=== PATIENT | female | born 1965 | race Caucasian/White ===

== ENCOUNTER 2020-08-23 10:56 | Outpatient (CLI) | payer BC, SELFPAY ==
--- NOTE | 2020-08-28 12:26 | WPDHOLTEREM ---
Holter/Event Monitor Holter/Event Monitor Date of procedure: 08/23/20 Procedure Type: 48 hour holter monitor Indications: Palpitations Conclusion: 1. 48 hour holter monitor on 08/23/20. 2. Underlying rhythm is sinus rhythm. HR range 44-135 bpm; average HR 71 bpm. 3. There are 16 premature supraventricular complexes. No supraventricular tachycardia. 4. There are 6 premature ventricular complexes. No ventricular tachycardia. 5. No sinoatrial or atrioventricular blocks. No significant pauses greater than 2 seconds. 6. Patient reports symptoms of chest pressure, flutters which demonstrate sinus rhythm, HR range 61-105 bpm.
== END 2020-08-23 10:57 | disposition home or self-care (01) ==
LOC: ANHCARD 10:57
PROVIDERS: PCP Internal Medicine; Visit Provider Internal Medicine
DX: R00.2 Palpitations (principal)
CPT/HCPCS: 93225; 93226

== ENCOUNTER 2020-09-11 06:45 | Outpatient (NON) | payer BC, SELFPAY ==
[2020-09-11 19:00] LABS: SARS-CoV-2 RNA PCR Negative
== END 2020-09-11 06:46 ==
PROVIDERS: PCP Internal Medicine; Visit Provider Internal Medicine
DX: Z20.828 Contact with and (suspected) exposure to other viral communicable diseases (principal); R68.89 Other general symptoms and signs
CPT/HCPCS: 87635; C9803; U0003

== ENCOUNTER 2020-09-26 08:32 | Outpatient (CLI) | payer BC, SELFPAY ==
--- NOTE | 2020-09-26 09:01 | EST_ITS ---
Patient Info Name: Joann Streeter Age: 54 years : 1965 Gender: Female Ht: 65 in Wt: 221 lbs BSA: 2.19 m2 HR: 74 bpm BP: 128 / 74 mmHg Heart Rhythm: Sinus Rhythm Exam Date: 09/26/2020 9:16 AM Exam Location: [facility] Stress Patient Status: Outpatient Admit Date: 09/26/2020 Staff Ordering Physician: Ciera Talavera Attending Provider: Ciera Talavera Exercise Technologist: Nilson Dominguez RDCS, RT Exercise Physician: Lc Hernandez DO Exam Type: CA stress test treadmill Study Info Indications R00.2 - Palpitations A treadmill exercise stress test was performed. Summary 1. 1. Negative Oscar exercise stress test for ischemic ST changes by ECG criteria. 2. 2. Good functional capacity, achieving 8 METs of workload. 3. 3. Frequent ventricular ectopies at peak exercise. 4. 4. Appropriate HR response to exercise. 5. 5. Appropriate HR recovery at 1 minute post exercise. 6. 6. No imaging with stress testing. 7. 7. Patient informed of the above results. Protocol: Oscar Stress ECG Details Stage: REST Duration (min): 1 min : 2 sec Speed (mph): 0.0 Grade (%): 0 HR (bpm): 77 SBP (mmHg): 128 DBP (mmHg): 72 METS: --- Stage: REST Duration (min): 2 min : 29 sec Speed (mph): 0.0 Grade (%): 0 HR (bpm): 70 SBP (mmHg): 128 DBP (mmHg): 72 METS: --- Stage: STAGE 1 Duration (min): 1 min : 0 sec Speed (mph): 1.7 Grade (%): 10 HR (bpm): 115 SBP (mmHg): 128 DBP (mmHg): 72 METS: --- Stage: STAGE 1 Duration (min): 2 min : 0 sec Speed (mph): 1.7 Grade (%): 10 HR (bpm): 130 SBP (mmHg): 128 DBP (mmHg): 72 METS: --- Stage: STAGE 1 Duration (min): 3 min : 0 sec Speed (mph): 1.7 Grade (%): 10 HR (bpm): 129 SBP (mmHg): 201 DBP (mmHg): 58 METS: --- Stage: STAGE 2 Duration (min): 1 min : 0 sec Speed (mph): 2.5 Grade (%): 12 HR (bpm): 135 SBP (mmHg): 201 DBP (mmHg): 58 METS: --- Stage: STAGE 2 Duration (min): 2 min : 0 sec Speed (mph): 2.5 Grade (%): 12 HR (bpm): 138 SBP (mmHg): 189 DBP (mmHg): 61 METS: --- Stage: STAGE 2 Duration (min): 3 min : 0 sec Speed (mph): 2.5 Grade (%): 12 HR (bpm): 143 SBP (mmHg): 189 DBP (mmHg): 61 METS: --- Stage: STAGE 3 Duration (min): 0 min : 40 sec Speed (mph): 3.4 Grade (%): 14 HR (bpm): 148 SBP (mmHg): 189 DBP (mmHg): 61 METS: --- Stage: RECOVERY Duration (min): 0 min : 19 sec Speed (mph): 1.5 Grade (%): 0 HR (bpm): 146 SBP (mmHg): 214 DBP (mmHg): 59 METS: --- Stage: RECOVERY Duration (min): 1 min : 19 sec Speed (mph): 0.0 Grade (%): 0 HR (bpm): 121 SBP (mmHg): 214 DBP (mmHg): 59 METS: --- Stage: RECOVERY Duration (min): 2 min : 19 sec Speed (mph): 0.0 Grade (%): 0 HR (bpm): 106 SBP (mmHg): 214
== END 2020-09-26 08:33 | disposition home or self-care (01) ==
PROVIDERS: PCP Internal Medicine; Visit Provider Nurse Practitioner
DX: R00.2 Palpitations (principal)
CPT/HCPCS: 93017

== ENCOUNTER 2020-10-22 08:48 | Outpatient (CLI) | payer BC, SELFPAY ==
--- NOTE | 2020-11-27 11:06 | WPDHOMESLEEP ---
Sleep Study - Home Unattended Date of Study: 10/22/20 Ordering Provider: Chester Renee DO Interpreting Physician: Josette Mcclure MD Home Sleep Study Type: Apnea Link Air Height: 1.65 m Weight: 90.718 kg Body Mass Index: 33.3 Neck Circumference (inches): 15.5 [place]: 14 Reason for Sleep Study sleep apnea over 10 years on treatment, increasing symptoms Sleep History Joann Streeter is a 55 year old female with a history of sleep apnea for 10 years. She has been on treatment with increasing symptoms [id number] non-refreshing sleep and daytime fatigue. She has difficulty falling asleep at night, wakes up throughout the night, wakes up feeling tired and has excessive daytime sleepiness. She frequently snores, and it is frequently loud enough that others complain about it. She occasionally awakens from sleep feeling short of breath, and occasionally awakens from sleep with heartburn, belching, or coughing. she frequently has trouble sleeping with a cold. she rarely awakens from sleep gasping for breath. She occasionally has breathing problems at night reported to her by others. She frequently sweats excessively at night. She occasionally notices her heart pounding or beating irregularly at night and occasionally fall asleep during the day. She rarely falls asleep involuntarily and never while driving. She does not fall asleep during physical effort. She does not have loss of muscle tone with strong emotion. She occasionally has daytime difficulties due to excessive sleepiness. 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 She does not feel paralyzed on waking or falling asleep. She frequently has vivid dreamlike scenes upon awakening or falling asleep. She rarely is afraid to go to sleep. She occasionally has nightmares, frequently remembers her dreams. She constantly has racing thoughts. She frequently has feelings of sadness, depression and anxiety. She occasionally has muscular tension. She frequently notices parts of her body jerking, she frequently kicks during the night and frequently has crawling and aching feelings in her legs. She frequently has leg pain during the night. She frequently has morning jaw pain. CO kg grind her teeth during sleep. The patient has bothered by pain during the day. She frequently is awakened by pain during the night. She occasionally wakes up feeling stiff in the morning with sore achy muscles and pain in the neck and spine joints. has nightmares, fatigue, dizziness, memory problems, insomnia and concentration difficulties. She also has palpitations and occasional morning headaches. Normal bedtime is 10:00 p.m. falling asleep within 15-30 minutes. She wakes up 5 times at night. These awakenings last anywhere between 10 and 30 minutes. She will try to go back to sleep, sometimes gets up and moves around. She wakes in the morning between 6:00 - 7:00 a.m.. She estimates 6 hours of sleep at night. On the weekends, her schedule is similar. She has no energy. Her CPAP mask is not comfortable. She takes naps in the early afternoon or evening if she is able to do so. She does not feel refreshed after a short 10 or 15 minute nap. She is usually drowsy in the morning for 3 hours or longer. She feels better in the afternoon compared to other times of day. Habits: tobacco 1 pack per day. Caffeine daily. No alcohol or recreational drugs. [facility] Past Medical History Medical History (Updated 11/27/20 @ 11:54 by Josette Mcclure MD) Abnormal glucose Bilateral carpal tunnel syndrome Depression Dizziness Herpes History of colonic polyps Hypotonicity Lumbago Overactive bladder RLS (restless legs syndrome) Family History Family History Father Family history of diabetes mellitus in first degree relative, Onset Age: 70 Social History Social History Smoking packs per day: 1 Smoking cigarettes per day:
[2020-11-28 11:30] VITALS: BMI 33.3
== END 2020-10-22 08:49 | disposition home or self-care (01) ==
LOC: ANHCSM 08:49
PROVIDERS: PCP Internal Medicine; Visit Provider Internal Medicine
DX: G47.33 Obstructive sleep apnea (adult) (pediatric) (principal); E66.9 Obesity, unspecified; Z68.33 Body mass index [BMI] 33.0-33.9, adult; G25.81 Restless legs syndrome; Z79.899 Other long term (current) drug therapy
CPT/HCPCS: 95806

== ENCOUNTER → 2021-01-21 00:19 | Outpatient (CLI) | payer BC, SELFPAY ==
[2021-01-21 19:33] LABS: SARS-CoV-2 RNA PCR Negative
== END ==
PROVIDERS: PCP Internal Medicine; Visit Provider Internal Medicine Critical Care Medicine
DX: Z01.812 Encounter for preprocedural laboratory examination (principal); Z20.822 Contact with and (suspected) exposure to COVID-19
CPT/HCPCS: C9803; U0003; U0005

== ENCOUNTER 2021-01-23 14:02 | Outpatient (CLI) | payer BC, SELFPAY ==
--- NOTE | 2021-02-06 11:21 | WPDSLEEPSTUD ---
Sleep Study Date of Study: 01/23/21 Ordering Provider: Chester Renee DO Interpreting Physician: Josette Mcclure MD Sleep Study Type: CPAP Titration Height: 1.65 m Weight: 90.718 kg Body Mass Index: 33.3 Neck Circumference (inches): 16 [place]: 14 Reason for Sleep Study Home sleep test on October 22, 2020 AHI 15, desaturation 84% 4 minutes spent below 88%. Sleep History Joann Streeter is a 55 year old female with a history of sleep apnea for 10 years. She has been on treatment with increasing symptoms including non-refreshing sleep and daytime fatigue. She has difficulty falling asleep at night, wakes up throughout the night, wakes up feeling tired and has excessive daytime sleepiness. She frequently snores, and it is frequently loud enough that others complain about it. She occasionally awakens from sleep feeling short of breath, and occasionally awakens from sleep with heartburn, belching, or coughing. she frequently has trouble sleeping with a cold. she rarely awakens from sleep gasping for breath. She occasionally has breathing problems at night reported to her by others. She frequently sweats excessively at night. She occasionally notices her heart pounding or beating irregularly at night and occasionally fall asleep during the day. She rarely falls asleep involuntarily and never while driving. She does not fall asleep during physical effort. She does not have loss of muscle tone with strong emotion. She occasionally has daytime difficulties due to excessive sleepiness. 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 She does not feel paralyzed on waking or falling asleep. She frequently has vivid dreamlike scenes upon awakening or falling asleep. She rarely is afraid to go to sleep. She occasionally has nightmares, frequently remembers her dreams. She constantly has racing thoughts. She frequently has feelings of sadness, depression and anxiety. She occasionally has muscular tension. She frequently notices parts of her body jerking, she frequently kicks during the night and frequently has crawling and aching feelings in her legs. She frequently has leg pain during the night. She frequently has morning jaw pain. CO kg grind her teeth during sleep. The patient has bothered by pain during the day. She frequently is awakened by pain during the night. She occasionally wakes up feeling stiff in the morning with sore achy muscles and pain in the neck and spine joints. has nightmares, fatigue, dizziness, memory problems, insomnia and concentration difficulties. She also has palpitations and occasional morning headaches. Normal bedtime is 10:00 p.m. falling asleep within 15-30 minutes. She wakes up 5 times at night. These awakenings last anywhere between 10 and 30 minutes. She will try to go back to sleep, sometimes gets up and moves around. She wakes in the morning between 6:00 - 7:00 a.m.. She estimates 6 hours of sleep at night. On the weekends, her schedule is similar. She has no energy. Her CPAP mask is not comfortable. She takes naps in the early afternoon or evening if she is able to do so. She does not feel refreshed after a short 10 or 15 minute nap. She is usually drowsy in the morning for 3 hours or longer. She feels better in the afternoon compared to other times of day. Habits: tobacco 1 pack per day. Caffeine daily. No alcohol or recreational drugs. [facility] Past Medical History Medical History Abnormal glucose Bilateral carpal tunnel syndrome Depression Dizziness Herpes History of colonic polyps Hypotonicity Lumbago Overactive bladder RLS (restless legs syndrome) Family History Family History Father Family history of diabetes mellitus in first degree relative, Onset Age: 70 Social History Social History Smoking packs per day: 1 Smoking cigar
[2021-02-06 11:44] VITALS: BMI 33.3
== END 2021-01-23 14:03 ==
LOC: ANHCSM 02-11 14:02
PROVIDERS: PCP Internal Medicine; Visit Provider Internal Medicine
DX: G47.33 Obstructive sleep apnea (adult) (pediatric) (principal); Z68.33 Body mass index [BMI] 33.0-33.9, adult
CPT/HCPCS: 95811

== ENCOUNTER 2021-02-11 09:49 | Outpatient (CLI) | payer BC, SELFPAY | END 2021-02-11 09:50 | disposition home or self-care (01) | LOC: ANHCOVIDVC 09:49 | PROVIDERS: PCP Internal Medicine | DX: Z23 Encounter for immunization (principal) | CPT/HCPCS: 0001A; 91300 ==

== ENCOUNTER 2021-03-04 09:49 | Outpatient (CLI) | payer BC, SELFPAY | END 2021-03-04 09:50 | disposition home or self-care (01) | LOC: ANHCOVIDVC 09:49 | PROVIDERS: PCP Internal Medicine | DX: Z23 Encounter for immunization (principal) | CPT/HCPCS: 0002A; 91300 ==

== ENCOUNTER → 2021-05-14 16:29 | Outpatient (CLI) | payer BC, SELFPAY ==
--- NOTE | ~2021-05-14 | MM_ITS ---
EXAMINATION: MM screening daniel BI w [facility] HISTORY: Screening mammogram TECHNIQUE: Craniocaudal and mediolateral oblique 3-D tomosynthesis images were obtained and synthetic 2-D images were generated. CAD analysis was submitted and interpreted. COMPARISON: 02/13/2017 BREAST PARENCHYMAL COMPOSITION: There are scattered areas of fibroglandular density. FINDINGS: There is no evidence of suspicious mass, calcification, or architectural distortion to sugg est malignancy in either breast. There has been no suspicious interval change. IMPRESSION: 1. No mammographic evidence of malignancy. 2. Recommend routine screening mammography in one year. BI-RADS Category 1: Negative Reviewed, dictated and finalized at location A.
== END ==
PROVIDERS: PCP Internal Medicine
DX: Z12.31 Encounter for screening mammogram for malignant neoplasm of breast (principal)
CPT/HCPCS: 77063; 77067

== ENCOUNTER 2022-02-05 18:20 | Emergency (ER) | payer BC, SELFPAY ==
--- NOTE | 2022-02-05 18:38 | ED.URI ---
HPI - URI/Sore Throat General Chief Complaint: Upper Respiratory Infection Stated Complaint: cough,chest congestion,runny nose Time Seen by Provider: 02/05/22 19:04 Source: patient and RN notes reviewed Mode of arrival: ambulatory Limitations: no limitations History of Present Illness HPI Narrative: 56-year-old female presents concern for 6-day history of cough, chest congestion, nasal congestion, rhinorrhea, ear fullness, increased fatigue. Reports symptoms have worsened. Reports her had similar symptoms. She denies fever. Reports body aches, chills, sweats. Denies shortness of breath. MD elicited complaint: cough, rhinorrhea and nasal congestion Related Data Home Medications Medication Instructions Recorded Confirmed ropinirole 3 mg PO DAILY 02/05/22 02/05/22 vortioxetine [Trintellix] 20 mg PO DAILY 02/05/22 02/05/22 Allergies Allergy/AdvReac Type Severity Reaction Status Date / Time No Known Allergies Allergy Verified 02/05/22 19:10 Review of Systems Review of Systems: CONSTITUTIONAL: Reports malaise, chills, sweats, fatigue. Denies fever. EYES: Denies visual changes, redness, or discharge. ENT: Reports rhinorrhea, congestion, sinus pain, otalgia. Denies sore throat. CARDIOVASCULAR: Denies chest pain, palpitations, or edema. RESPIRATORY: Reports cough. Denies dyspnea. GASTROINTESTINAL: Denies abdominal pain, vomiting, diarrhea. Reports nausea SKIN: Denies rash or itching. MUSCULOSKELETAL: Reports myalgia. NEUROLOGIC: Denies headache. All systems reviewed & are unremarkable except as noted in HPI and below PMFSH Past Medical History Medical History Abnormal glucose Bilateral carpal tunnel syndrome Depression Dizziness Herpes History of colonic polyps Hypotonicity Lumbago Overactive bladder RLS (restless legs syndrome) Family History Family History Father Family history of diabetes mellitus in first degree relative, Onset Age: 70 Social History Social History Smoking packs per day: 0.5 Smoking cigarettes per day: 10.0 Years smoked: 30 Smoking pack-years: 15.00 Smoking status: Current every day smoker (1/2 pack) Tobacco type: cigarettes Second hand tobacco smoke exposure: Yes Alcohol intake: current Alcohol use details: Social Comments At time of signature, agree with nursing past medical, surgical, social and family history. There is no relevant family history pertinent to the presenting complaint Exam Narrative: GENERAL: Well-appearing, well-nourished, and in no acute distress. HEAD: Normocephalic EYES: PERRLA, conjunctivae clear ENT: Nares clear, turbinates edematous and erythematous, sinus tenderness. Mucous membranes moist. TM pearly teixeira with dull light reflex bilaterally; no tragal tenderness. Oropharynx not erythematous without lesions. Tonsils not enlarged and without exudate, no drooling, no trismus, uvula midline. Mildly hoarse voice NECK: Supple. No lymphadenopathy CHEST: Scattered rhonchi, otherwise clear to auscultation, breath sounds equal. No wheezing, rales, or stridor. No respiratory distress, speaks in full sentences. Cough noted HEART: Regular rate and rhythm. No murmur heard. SKIN: Warm, dry, no rash. NEURO: Alert and oriented x3. PSYCH: Normal mood and affect Course Course Emergency Course: Patient is aware of diagnosis, understands and agrees to treatment plan. Anticipatory guidance given. Patient agrees to follow-up as directed and is aware of reasons to seek care at the emergency department. Portions of this record may have been created with voice recognition software Level of Care: Express Care Visit Vital Signs Vital signs: Reviewed. MDM - URI/Sore Throat MDM Narrative Medical decision making narrative: Differential diagnosis considered: Herrmann virus, strep pharyng
[2022-02-05 18:39] VITALS: BP 134/70; PULSE 106; RESP 18; TEMP 36.3; O2SAT 97
== END 2022-02-05 19:25 | disposition home or self-care (01) ==
PROVIDERS: Emergency Provider Nurse Practitioner; PCP Internal Medicine
DX: J32.9 Chronic sinusitis, unspecified (principal); J40 Bronchitis, not specified as acute or chronic; G25.81 Restless legs syndrome; F17.210 Nicotine dependence, cigarettes, uncomplicated
CPT/HCPCS: 87426; 87804; 99213; C9803; G0463

== ENCOUNTER 2022-02-24 19:24 | Emergency (ER) | payer BC, SELFPAY ==
[2022-02-24 19:40] VITALS: BP 109/59; PULSE 71; RESP 18; TEMP 36.3; O2SAT 99
--- NOTE | 2022-02-24 20:00 | ED.URI ---
HPI - URI/Sore Throat General Chief Complaint: Upper Respiratory Infection Stated Complaint: cough,yellow nasal drainage Time Seen by Provider: 02/24/22 20:01 Source: patient, RN notes reviewed and old records reviewed Mode of arrival: ambulatory Limitations: no limitations History of Present Illness HPI Narrative: 56 year old female who presents to [facility] care with complaints of sinus congestion and yellow drainage with blood tinged mucous and cough. Patient states she was treated for bronchitis and sinus infection on the 05 of February with Z-pack, Virtussin and Medrol dose pack and did get better till this past weekend with symptoms returning.Patient denies any shortness of breath or any noted wheezing reports that cough is harsh with yellow mucous production noted.Patient reports that she has been COVID vaccinated and boosted and had flu shot this year. Patient reports that she has been treating with OTC sinus medicaitons. MD elicited complaint: cough, rhinorrhea, nasal congestion and sinus pain Related Data Home Medications Medication Instructions Recorded Confirmed ropinirole 3 mg PO DAILY 02/05/22 02/24/22 vortioxetine [Trintellix] 20 mg PO DAILY 02/05/22 02/24/22 Allergies Allergy/AdvReac Type Severity Reaction Status Date / Time No Known Allergies Allergy Verified 02/24/22 19:50 Review of Systems Review of Systems: CONSTITUTIONAL: Denies fever, chills, or sweats. EYES: Denies visual changes, redness, or discharge. ENT: positive for rhinorrhea, congestion,no sore throat, or otalgia, positive for sinus pressure CARDIOVASCULAR: Denies chest pain, palpitations, or edema. RESPIRATORY: positive for productive cough denies dyspnea. GASTROINTESTINAL: Denies abdominal pain, nausea, vomiting, or diarrhea. GENITOURINARY: Denies dysuria or hematuria. SKIN: Denies rash or itching. MUSCULOSKELETAL: Denies back pain, joint pain, or myalgia. NEUROLOGIC: frontal headache, nonumbness, or weakness. PSYCHIATRIC:Positive for history of anxiety or depression. All systems reviewed & are unremarkable except as noted in HPI and below PMFSH Past Medical History Medical History (Updated 02/25/22 @ 00:00 by Donato Daemama) Abnormal glucose Bilateral carpal tunnel syndrome Depression Dizziness Herpes History of colonic polyps Hypotonicity Lumbago Overactive bladder RLS (restless legs syndrome) Surgical History Surgical History (Updated 02/25/22 @ 09:44 by Jessica Hills NP) H/O LEEP History of hysterectomy History of tonsillectomy Family History Family History Father Family history of diabetes mellitus in first degree relative, Onset Age: 70 Social History Social History (Updated 02/25/22 @ 09:40 by Jessica Hills NP) Smoking packs per day: 0.5 Smoking cigarettes per day: 10.0 Years smoked: 30 Smoking pack-years: 15.00 Smoking status: Former smoker (1/2 pack) Tobacco type: cigarettes Second hand tobacco smoke exposure: Yes Additional smoking assessment comments: Report that she quit first part of January 2022 Alcohol intake: current Alcohol use details: Social Substance use: never Living arrangements: with family Gender identity (if verbalized by the patient): Female Comments At time of signature, agree with nursing past medical, surgical, social and family history. There is no relevant family history pertinent to the presenting complaint Exam Narrative: GENERAL: Well-appearing, well-nourished, and in no acute distress. HEAD: Normocephalic, atraumatic. EYES: PERRLA and EOMI. ENT: Nares red swollen with enlarged turbinates with some bloody drainage, yellow rhinorrhea no acute epistaxis. Mucous membranes moist.TM's normal with dull light refles, throat with some redness, no lesions or exudates, no tonsils present, post nasal drainage. NECK: Supple.no lymphadenopathy CHEST:Coarse breath sounds on auscultation. No respiratory
== END 2022-02-24 20:20 | disposition home or self-care (01) ==
PROVIDERS: Emergency Provider Registered Nurse; PCP Internal Medicine
DX: J32.9 Chronic sinusitis, unspecified (principal); R05.9 Cough, unspecified; Z87.891 Personal history of nicotine dependence; G25.81 Restless legs syndrome; F32.A Depression, unspecified
CPT/HCPCS: 99213; G0463

== ENCOUNTER → 2023-08-24 15:24 | Outpatient (CLI) | payer BC, SELFPAY ==
--- NOTE | ~2023-08-24 | XR_ITS ---
XR abdomen/kub 1V 08/24/2023 15:33 INDICATION: Left lower quadrant TECHNIQUE: KUB COMPARISON: None FINDINGS: Bowel gas pattern is normal. There is no evidence of free air, mass, organomegaly, ascites or obstruction. No abnormal calculi are seen. The bones appear intact. Calcifications in the pelvi s are believed to be phleboliths. IMPRESSION: 1: No acute abdominal abnormality identified. Reviewed, dictated and finalized at location B.
== END ==
PROVIDERS: PCP Family Medicine; Visit Provider Nurse Practitioner
DX: R10.32 Left lower quadrant pain (principal); R19.7 Diarrhea, unspecified
CPT/HCPCS: 74018

== ENCOUNTER 2023-10-06 13:52 | Outpatient (CLI) | payer BC, SELFPAY ==
--- NOTE | ~2023-10-06 | CT_ITS ---
CT Scan of the Chest without Contrast: Clinical Indication: Lung cancer screening, personal history of nicotine dependence Technique: Contiguous sections were acquired throughout the chest without intravenous contrast. Dose reduction technique was used on this scan by utilizing automated exposure control and iterative recon struction technique. The dose-length product (DLP) was 116.37 mGy-cm. Findings: There is no evidence of any significant mediastinal, hilar or axillary lymphadenopathy. The mediastin al soft tissues appear normal. There is no evidence of pleural or pericardial effusion. The lungs are clear. No pulmonary nodules or infiltrates are noted. Images through the upper abdomen reveal no abnormalities. Impression: Lung RADS 1: Negative. 12 month follow-up screening CT advised. Reviewed, dictated and finalized at location . [employer] Impression: Lung RADS 1: Negative. 12 month follow-up screening CT advised.
== END 2023-10-06 13:53 | disposition home or self-care (01) ==
PROVIDERS: PCP Family Medicine; Visit Provider Nurse Practitioner
DX: Z12.2 Encounter for screening for malignant neoplasm of respiratory organs (principal); Z87.891 Personal history of nicotine dependence
CPT/HCPCS: 71271

== ENCOUNTER 2024-11-07 00:45 | Day surgery (SDC) | payer BC, SELFPAY ==
[2024-10-31 08:51] VITALS: BMI 32.4
[2024-11-07 12:45] VITALS: BP 134/81; PULSE 90; RESP 18; TEMP 36.3; O2SAT 99; BMI 31.4
[2024-11-07] MEDS: LACTATED RINGERS 1,000 ML 150 ML IV CONT (12:56)
--- NOTE | 2024-11-07 13:13 | PM.HPGS ---
History of Present Illness History of Present Illness Consent: Risks, benefits, and alternatives have been discussed and questions answered. Patient agrees to proceed with procedure. Chief complaint: Neoplasm screening Narrative: Joann Streeter is a 59 year old female with colon polyp in 2018 Review of Systems Review of Systems: All systems reviewed & are unremarkable except as noted in HPI and below PMFSH Past Medical History Medical History (Updated 11/07/24 @ 13:14 by Leandro Nova MD) Abnormal glucose Bilateral carpal tunnel syndrome Colon polyp Depression Dizziness Herpes History of colonic polyps Hypotonicity Lumbago Overactive bladder RLS (restless legs syndrome) Surgical History Surgical History H/O LEEP History of hysterectomy History of tonsillectomy Family History Family History Father Family history of diabetes mellitus in first degree relative, Onset Age: 70 Social History Social History Smoking packs per day: 0.5 Smoking cigarettes per day: 10.0 Years smoked: 25 Smoking pack-years: 12.50 Smoking status: Current every day smoker Tobacco type: cigarettes Second hand tobacco smoke exposure: Yes Additional smoking assessment comments: Report that she quit first part of January 2022 Alcohol intake: current Drinks per week: 1 Alcohol use details: Social Substance use: never Substance use type: does not use Lack of Transportation: No Lack of Food: Never True Current Housing: I Have Housing Concerned About Future Housing: No Difficulty Paying Gas/Electric Bills: No Difficulty Paying for Meds: No Currently Unemployed: No Education: Bachelor's Degree Difficulty w/ Childcare or Family Care: No Living arrangements: with family Gender identity (if verbalized by the patient): Female Spiritual care concerns: No Meds Home Medications and Allergies Home Medications Medication Instructions Recorded Confirmed Type dextromethorphan IR 45 1 tablet PO BID 09/14/23 11/07/24 History mg-bupropion ER 105 mg biphasic tablet (Auvelity) lamotrigine 25 mg tablet 25 mg PO BID 09/14/23 11/07/24 History lorazepam 0.5 mg tablet 0.5 mg PO DAILY 09/14/23 11/07/24 History suvorexant 20 mg tablet (Belsomra) 20 mg PO ONCE 09/14/23 11/07/24 History atorvastatin 20 mg tablet See Rx Instructions .Route 09/06/24 11/07/24 Rx .COMPLEX #90 tabs ropinirole 0.25 mg tablet 0.25 mg PO DIRECTED #180 tabs 10/26/24 11/07/24 Rx estradiol 0.5 mg/0.5 gram (0.1 %) 0.5 mg topical DAILY 10/31/24 11/07/24 History transdermal gel packet estradiol 10 mcg vaginal tablet 10 mcg vaginal DAILY 10/31/24 11/07/24 History (Vagifem) Allergies Allergy/AdvReac Type Severity Reaction Status Date / Time No Known Allergies Allergy Verified 11/07/24 12:44 Vital Signs Vital Signs - 24 hr 11/07/24 12:45 Temperature 97.4 F L Pulse Rate 90 Respiratory Rate 18 Blood Pressure 134/81 Pulse Oximetry 99 Oxygen Delivery Room Air Exam Const: General: comfortable and no acute distress HENMT: Face/Nose/Sinus: Normal nares present Eyes: General: appearance normal, both eyes and all related structures Neck: Neck: no JVD Resp: Auscultation: clear to auscultation bilaterally Cardio: Rate: regular rate Rhythm: regular rhythm GI: Inspection: non-distended GI Palp: Yes Soft to palpation Skin: General skin exam: normal color Neuro: General: gait normal Speech: normal speech Extrem: General: normal to inspection Psych: Mental Status: mental status grossly normal Assessment and Plan Assessment and plan (1) Colon polyp: Code(s): K63.5 - Polyp of colon Status: Acute Assessment and Plan: colonoscopy
--- NOTE | 2024-11-07 13:24 | WPDANESEPPF ---
Anes - Initial Pre Proc Eval Procedure: Operation Date: 11/07/24 14:00 Proposed Procedures p Screening Colonoscopy - Leandro Nova MD Date/Time: 11/07/24 13:24 Surgeon: Leandro Nova MD Pre Op Diagnosis: Neoplasm screening Patient Data Age: 59 Gender: F Height: 1.65 m Weight: 85.6 kg Last Vital Signs Temp 97.4 F L 11/07/24 12:45 Pulse 90 11/07/24 12:45 Resp 18 11/07/24 12:45 BP 134/81 11/07/24 12:45 Pulse Ox 99 11/07/24 12:45 O2 Del Method Room Air 11/07/24 12:45 Allergies Allergy/AdvReac Type Severity Reaction Status Date / Time No Known Allergies Allergy Verified 11/07/24 12:44 Home Medications Medication Instructions Recorded Confirmed Type dextromethorphan IR 45 1 tablet PO BID 09/14/23 11/07/24 History mg-bupropion ER 105 mg biphasic tablet (Auvelity) lamotrigine 25 mg tablet 25 mg PO BID 09/14/23 11/07/24 History lorazepam 0.5 mg tablet 0.5 mg PO DAILY 09/14/23 11/07/24 History suvorexant 20 mg tablet (Belsomra) 20 mg PO ONCE 09/14/23 11/07/24 History atorvastatin 20 mg tablet See Rx Instructions .Route 09/06/24 11/07/24 Rx .COMPLEX #90 tabs ropinirole 0.25 mg tablet 0.25 mg PO DIRECTED #180 tabs 10/26/24 11/07/24 Rx estradiol 0.5 mg/0.5 gram (0.1 %) 0.5 mg topical DAILY 10/31/24 11/07/24 History transdermal gel packet estradiol 10 mcg vaginal tablet 10 mcg vaginal DAILY 10/31/24 11/07/24 History (Vagifem) Patient hx anesthesia problems: none Family hx anesthesia problems: none Results Review: All pre-operative results and documents have been reviewed as part of the pre-operative evaluation. FOR[facility]LY [facility], [facility] Past Medical History Medical History (Updated 11/07/24 @ 13:14 by Leandro Nova MD) Abnormal glucose Bilateral carpal tunnel syndrome Colon polyp Depression Dizziness Herpes History of colonic polyps Hypotonicity Lumbago Overactive bladder RLS (restless legs syndrome) Surgical History Surgical History H/O LEEP History of hysterectomy History of tonsillectomy Family History Family History Father Family history of diabetes mellitus in first degree relative, Onset Age: 70 Social History Social History Smoking packs per day: 0.5 Smoking cigarettes per day: 10.0 Years smoked: 25 Smoking pack-years: 12.50 Smoking status: Current every day smoker Tobacco type: cigarettes Second hand tobacco smoke exposure: Yes Additional smoking assessment comments: Report that she quit first part of January 2022 Alcohol intake: current Drinks per week: 1 Alcohol use details: Social Substance use: never Substance use type: does not use Lack of Transportation: No Lack of Food: Never True Current Housing: I Have Housing Concerned About Future Housing: No Difficulty Paying Gas/Electric Bills: No Difficulty Paying for Meds: No Currently Unemployed: No Education: Bachelor's Degree Difficulty w/ Childcare or Family Care: No Living arrangements: with family Gender identity (if verbalized by the patient): Female Spiritual care concerns: No Anes - Eval Final PreProcedure Day of Procedure 11/07/24 13:24 Patient weight: obese Heart: regular rate and rhythm Lungs: clear to auscultation Airway: Mallampati scale class II Neurological: alert and oriented Last oral intake: >/= 8 hours ASA classification: III Emergent: no Anesthetic plan: proceed Anesthesia type and monitoring: general GIVS and standard monitoring Results Review: All pre-operative results and documents have been reviewed as part of the pre-operative evaluation. Informed Consent: The patient's anesthetic plan and its attendant risks and benefits were discussed with the patient/family/POA. Questions were solicited and answers provided to the satisfaction of the patient/family/POA.
[2024-11-07 13:40] VITALS: BP 100/50; PULSE 71; RESP 18; O2SAT 95
[2024-11-07 13:50] VITALS: BP 117/69; PULSE 61; RESP 20; O2SAT 98
[2024-11-07 14:00] VITALS: BP 137/66; PULSE 60; RESP 18; O2SAT 100
== END 2024-11-07 14:11 | disposition home or self-care (01) ==
PROVIDERS: PCP Family Medicine; Referring Provider Nurse Practitioner; Visit Provider Internal Medicine Gastroenterology
PROC: 0DJD8ZZ Inspection of Lower Intestinal Tract, Via Natural or Artificial Opening Endoscopic (ICD-10-PCS; CPT 45378; principal; 2024-11-07 14:00)
DX: Z12.11 Encounter for screening for malignant neoplasm of colon (principal); D12.4 Benign neoplasm of descending colon; K57.30 Diverticulosis of large intestine without perforation or abscess without bleeding; G56.03 Carpal tunnel syndrome, bilateral upper limbs; F32.A Depression, unspecified; N32.81 Overactive bladder; G25.81 Restless legs syndrome; F17.210 Nicotine dependence, cigarettes, uncomplicated; E66.9 Obesity, unspecified; Z68.31 Body mass index [BMI] 31.0-31.9, adult; Z98.890 Other specified postprocedural states
CPT/HCPCS: 45385; 88305; J2003; J2704; J7120

== ENCOUNTER 2025-03-13 11:50 | Emergency (ER) | payer BC, SELFPAY ==
--- NOTE | 2025-03-13 11:54 | ED.URI ---
HPI - URI/Sore Throat General Chief Complaint: Upper Respiratory Infection Stated Complaint: congestion and headache Time Seen by Provider: 03/13/25 11:50 Source: patient Mode of arrival: ambulatory Limitations: no limitations History of Present Illness HPI Narrative: Patient is a 59-year-old female who presents with 10 days of congestion and worsening cough. Patient thought it was just her allergies and has tried [id number] medication with no relief. Patient states cough is worse at night and is coughing thick secretions up in the morning and some throughout the day. Denies any fever, chills, nausea, vomiting, diarrhea. Related Data Home Medications ?Medication ?Instructions ?Recorded ?Confirmed ?Last Taken ?Type dextromethorphan IR 45 1 tablet PO BID 09/14/23 03/13/25 11/06/24 History mg-bupropion ER 105 mg biphasic tablet (Auvelity) lamotrigine 25 mg tablet 25 mg PO BID 09/14/23 03/13/25 11/06/24 History lorazepam 0.5 mg tablet 0.5 mg PO DAILY 09/14/23 03/13/25 11/06/24 History suvorexant 20 mg tablet (Belsomra) 20 mg PO ONCE 09/14/23 03/13/25 11/06/24 History estradiol 0.5 mg/0.5 gram (0.1 %) 0.5 mg topical DAILY 10/31/24 03/13/25 11/06/24 History transdermal gel packet estradiol 10 mcg vaginal tablet 10 mcg vaginal DAILY 10/31/24 03/13/25 11/06/24 History (Vagifem) Allergies Allergy/AdvReac Type Severity Reaction Status Date / Time No Known Allergies Allergy Verified 03/13/25 11:56 Review of Systems Review of Systems: All systems reviewed & are unremarkable except as noted in HPI and below Constitutional: Constitutional: Denies chills, Denies fatigue, Denies fever(s), Denies headache(s), Denies malaise and Denies weakness Eyes: Eyes: Denies blurry vision, Denies itchy eyes and Denies loss of vision ENT: Denies otalgia, Denies headache(s), Reports nasal congestion, Denies sinus pain and Denies sore throat Cardiovascular: Cardiovascular: Denies chest pain, Denies irregular heart rhythm and Denies dyspnea Respiratory: Respiratory: Reports cough and Denies dyspnea Gastrointestinal: Gastrointestinal: Denies abdominal pain, Denies diarrhea, Denies nausea and Denies vomiting Musculoskeletal: Musculoskeletal: Denies back pain, Denies myalgias and Denies arthralgias Integumentary/Breasts: Skin/Breast: Denies pruritus and Denies rash Neurologic: Denies headache(s), Denies loss of vision and Denies weakness Psychiatric: Psychiatric: Reports no additional psychiatric complaints Endocrine: Endocrine: Denies fatigue Allergic/Immunologic: Allergic/Immunologic: Denies itchy eyes PMFSH Past Medical History Medical History Colon polyp Depression Bilateral carpal tunnel syndrome Overactive bladder Dizziness History of colonic polyps Abnormal glucose Herpes Hypotonicity Lumbago RLS (restless legs syndrome) Surgical History Surgical History H/O LEEP History of hysterectomy History of tonsillectomy Family History Family History Father Family history of diabetes mellitus in first degree relative, Onset Age: 70 Social History Social History Smoking packs per day: 0.5 Smoking cigarettes per day: 10.0 Years smoked: 25 Smoking pack-years: 12.50 Smoking status: Current every day smoker Tobacco type: cigarettes Second hand tobacco smoke exposure: Yes Additional smoking assessment comments: Report that she quit first part of January 2022 Alcohol intake: current Drinks per week: 1 Alcohol use details: Social Substance use: never Substance use type: does not use Lack of Transportation: No Lack of Food: Never True Current Housing: I Have Housing Concerned About Future Housing: No Difficulty Paying Gas/Electric Bills: No Difficulty Paying for Meds: No Currently Unemployed: No Education: Bachelor's Degree Difficulty w/ Childcare or Family Care: No Living arrangements: with family Gender identity (if verbalized by the patient): Female Spiritual care concerns: No Comments At time of signature, agree with nursing past medical, surgical, social and family history. There is no relevant family history pertinent to the presenting complaint. Exam Const: General: cooperative, healthy appearing, comfortable, no acute distress and well nourished Nutritional Appearance: well nourished Orientation/consciousness: patient oriented x3 Limitations: no limitations HENMT: Head: normal to inspection, normocephalic and atraumatic Ears: hearing grossly normal bilaterally, external ears normal, TM's normal bilaterally, EAC's normal and no periauricular adenopathy Face/Nose/Sinus: Normal external nose present, Abnormal mucous membranes and turbinates present erythematous bilateral and diffuse, normal facial exam, sinuses nontender and face symmetric Face and sinus: normal facial exam, sinuses nontender and face symmetric Mouth: Yes Normal oral and palatal mucosa present, Yes lip normal, Yes tongue normal, Yes Normal salivary glands and ducts present, Yes oropharynx normal and Yes moist mucous membranes Teeth and gingiva: dentition normal Throat: posterior oropharynx normal, tonsils normal and uvula midline Eyes: General: appearance normal, both eyes and all related structures Alignment and Position: alignment normal and position normal Periorbital: periorbital findings normal Eyelids: eyelids normal Pupils: Equal, round and reactive pupils present Neck: Neck: normal visual inspection, full ROM, no lymphadenopathy and supple Chest: Chest palpation & inspection: normal inspection of the chest and normal palpation of entire chest wall Resp: Effort & Inspection: normal respiratory effort, able to speak in complete sentences and Actively coughing actively coughing (Coughing fits image in between short phrase sentences) Auscultation: no crackles, no rales, no rhonchi and wheezes inspiratory wheezes and upper bilaterally Cardio: Rate: regular rate Rhythm: regular rhythm Heart sounds: S1 normal heart sound present and S2 normal heart sound present GI: Inspection: normal to inspection Skin: General skin exam: normal color and no rashes or lesions noted Neuro: General: patient oriented x3 and moves all extremities Cranial nerves: Yes Equal, round and reactive pupils present Speech: normal speech Gait exam (Neuro): Normal gait present Extrem: General: normal to inspection, full ROM and no edema Psych: Appearance: grossly normal and well kempt Mental Status: mental status grossly normal Speech and movement: Normal speech and movement present Affect: normal affect Attitude: cooperative Thought process: Normal thought process present Course Course Emergency Course: Discharge instructions reviewed with patient, as well as provided in writing per nursing staff. The instructions also include specific and strict return/GO TO THE ER as well as f/u information. All questions have been answered, and the patient deny any further questions with discharge and discharge plan. Portions of this record may have been created with voice recognition software Level of Care: Express Care Visit Vital Signs Vital signs: Reviewed MDM - URI/Sore Throat MDM Narrative Medical decision making narrative: Patient has symptoms consistent with purulent bronchitis as she has been sick for 10 days with symptoms worsening the last 2. Will treat with antibiotics, steroids, Tessalon Perles and albuterol inhaler. Pt well hydrated appearing, hemodynamically stable. Recommend supportive care. The patient is stable at time of discharge the clinical impression was discussed and the patient was given the opportunity to ask questions, which were addressed as completely as possible given the information available at present. Anticipatory guidance and return to care precautions were discussed and the importance of primary care follow-up was stressed and encouraged. The patient voiced understanding of the plan, indications to return, and the need for follow-up. Exam findings show no acute concerns or changes Patient is appropriate for outpatient treatment and follow-up. Differential diagnosis considered: Herrmann virus, strep pharyngitis, allergic rhinitis, upper respiratory tract infection, sinusitis, rhinosinusitis, nasopharyngitis. viral pharyngitis, otitis media, otitis externa, otitis effusion, foreign body, cerumen impaction, viral syndrome, and influenza.? Medical Records Attestation: I reviewed the patient's medical records. Discharge Plan Discharge Clinical Impression: Acute purulent bronchitis Patient Disposition: Home Condition: Stable Instructions: Acute Bronchitis (ED) Additional Instructions: Take antibiotic as prescribed. Take steroids in the morning with food. Use Tessalon Perles as needed for cough. Use inhaler with spacer as needed. Other symptomatic treatments include: -Alternate Tylenol and Motrin per package directions for fever or pain: Tylenol 650-1000mg by mouth every 4-6 hours. Do not exceed 4000mg in 24 hours. Advil (Ibuprofen) 600 mg by mouth every 6 hours. Do not exceed 2400mg in 24 hours. 8 AM: Tylenol 11 AM: Ibuprofen 2 PM: Tylenol 5 PM: Ibuprofen 8 PM: Tylenol 11 PM: Ibuprofen 2 AM: Tylenol 5 AM: Ibuprofen -Antihistamine medication such as Benadryl at night and Zyrtec/Claritin/Janice during the day can help improve symptoms. -Use Flonase twice a day for 5 days then daily to help reduce the inflammation and dry up your sinuses. -You can also use Sudafed or Mucinex. Be sure to drink plenty of water with these medications at least 8 ounces with every dose and it is important to drink 8 to 10 glasses of water per day. Water is a natural decongestant -Eat and drink things that are easy to swallow, like tea or soup, or popsicles. -Oral rinses such as: Salt water gargles and/or may use topical anesthetic (eg. Chloraseptic spray) or lozenges to relieve dryness or throat pain). -Frequent hand washing or hand geospatial image analyst is one of the best ways to prevent spread of infection. -Using a vaporizer or humidifier at night will also help thin secretions and help with coughing up phlegm. Call your Primary Care Doctor and make a follow-up appointment in 3 days. If your cough worsens, you develop a fever greater than 103, you develop shaking chills, a fast heartbeat, trouble breathing and/or feel you are are breathing much faster than usual, call your Primary Care Doctor or go to the ER. Patient Language: Spanish Prescriptions: New (DME) Aerochamber MV Spacer See Rx Instructions .Route Qty: 1 0RF Rx Instructions: As directed prednisone 20 mg tablet 40 mg PO DAILY 5 Days Qty: 10 0RF doxycycline monohydrate 100 mg tablet 100 mg PO BID 7 Days Qty: 14 0RF benzonatate 100 mg capsule 100 mg PO BID PRN (Reason: cough) Qty: 14 0RF albuterol sulfate 90 mcg/actuation HFA aerosol inhaler 2 puff inhalation QID PRN (Reason: shortness of breath or wheezing) Qty: 6.7 0RF No Action lamotrigine 25 mg tablet 25 mg PO BID Rx Instructions: 2 tabs by mouth BID Auvelity 45-105 mg tablet,IR,delayed rel,biphasic 1 tablet PO BID Belsomra 20 mg tablet 20 mg PO ONCE lorazepam 0.5 mg tablet 0.5 mg PO DAILY estradiol 0.5 mg/0.5 gram (0.1 %) gel in packet 0.5 mg topical DAILY estradiol [Vagifem] 10 mcg tablet 10 mcg VAGINAL DAILY ropinirole 0.25 mg tablet 0.25 mg PO DIRECTED Qty: 180 1RF Rx Instructions: Take 1 or 2 tabs by mouth 1-2hrs before bedtime. atorvastatin 20 mg tablet See Rx Instructions .ROUTE .COMPLEX Qty: 90 0RF Dose Instruction: TAKE 1 TABLET AT BEDTIME Rx Instructions: TAKE 1 TABLET AT BEDTIME Follow-up/Referrals: Zuri Allen DO [Primary Care Provider] - 3 Days Stand Alone Forms: Work/School Release IP Time of Disposition: 12:07
[2025-03-13 11:56] VITALS: BP 111/62; PULSE 66; RESP 20; TEMP 36.2; O2SAT 98
--- OUTSIDE RECORDS SUMMARY | 2025-03-13 13:19 | XMS_ITS | Clinical Summary ---
Author Organization [facility] Address [address] [place] [address] Care Team Providers Care Evs Attendant Name Role Phone Chester Renee Primary Care Provider [phone] Source Comments [facility],non-owned Affiliates and Associated Physician Practices is amultiple site organization consisting of ambulatory clinics and hospital sitesin [place], [place], [place] and [place]. This disclosure is being madepursuant to the Care Everywhere program and may not contain all information available regarding this patient. Last updated 18.[facility] Allergies No known active allergies Medications * Be aware that medications may not be up to date on this document. Alwaysverify current medications with the patient. 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 Other seborrheic keratosis 01/17/2019 Skin ulcer of finger, limited to breakdown of sk in 01/17/2019 Scar 01/17/2019 NIALL (obstructive sleep apnea) 02/12/2017 Restless legs syndrome (RLS) 02/12/2017 Family History Medical History Relation Name Comments Cancer - Skin, Non Melanoma Father Sleep Apnea Father Sleep Apnea Mother Asthma Neg Hx CVA Neg Hx Cancer - Breast Neg Hx Cancer - Other Neg Hx Cancer - Skin, Melanoma Neg Hx Eczema Neg Hx Hemophilia Neg Hx Psoriasis Neg Hx Relation Name Status Comments Father Mother Social History Tobacco Use Types Packs/Day Years Used Date Smoking Tobacco: Former Cigarettes 0.5 28 0 12/31/1988 - 12/31/2016 Smokeless Tobacco: Never Tobacco Cessation:Counseling Given: No Alcohol Use Standard Drinks/Week Comments Yes 0 (1 standard drink = 0.6 oz pur e alcohol) socially Comments No Sex and Gender Information Value Date Recorded Sex Assigned at Not on file Legal Sex Female 11:18 AM CDT Gender Identity Female 12/15/2017 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 Sexual Orientation Not on file Last Filed Vital Signs Vital Sign Reading Time Taken Comments Blood Pressure 108/67 08/01/2020 3:37 PM CDT Pulse 65 08/01/2020 3:37 PM CDT Temperature - - Respiratory Rate 16 06/12/2017 9:20 AM CDT Oxygen Saturation 97% 06/12/2017 9:20 AM CDT Inhaled Oxygen Concentration - - Weight 100.7 kg (222 lb) 08/01/2020 3:37 PM CDT Height 165.1 cm (5' 5 ) 07/14/2019 10:15 AM CDT Body Mass Index 36.94 07/14/2019 10:15 AM CDT Plan of Treatment Health Maintenance Due Date Last Done Comments COLOGUARD (AGES 45-75) - COL ON CA SCREENING 1964 COLON MONITORING 1964 COLONOSCOPY - COLON CA SCREENING 1964 CT COLONOGRAPHY - COLON CA SCREENING 1964 Colorectal Cancer Screening 1964 FIT - COLON CA SCREENING 1964 FLEX SIG - COLON CA SCREENING 1964 MAMMOGRAM 1964 HIV SCREENING 1979 HEPATITIS C SCREENING 10/01/1982 DTAP/TDAP/TD VACCINES (1 - Tdap) 1983 PNEUMOCOCCAL VACCINE 50+ (1 of 1 - PCV) 2014 ZOSTER VACCINE (1 of 2) 2014 COVID-19 VACCINE (1 - 2023-2 5 season) 2024 DEPRESSION SCREENING 11/30/2024 INFLUENZA VACCINE (Season Ended) 2025 Respiratory Syncytial Virus (RSV) Vaccine Pt: or over 60 yrs (1 - 1-dose 75+ series) 2039 HEPATITIS B VACCINE Aged Out No longe r eligible based on patient's age to complete this topic HIB VACCINE Aged Out No longer eligi ble based on patient's age to complete this topic HPV VACCINE Aged Out No longer eligi ble based on patient's age to complete this topic MENINGOCOCCAL (Group B) VACC INE SHARED DECISION-MAKING Aged Out No longer eligibl e based on patient's age to complete this topic MENINGOCOCCAL GROUPS A/C/Y/W VACCINE Aged Out No longer eligible b ased on patient's age to complete this topic PNEUMOCOCCAL VACCINE Aged Out No long er eligible based on patient's age to complete this topic Insurance [employer] PAY NO INSURANCE Member Subscriber Plan / Payer (Ef fective for All Dates) Name:Joann Streeter Member ID:Not on file Relation to Subscriber:Not on file Name:JOANN STREETER Subscriber ID:Not on file (Home) Address: [address] [place] [address] Payer ID:Not on file Group ID:Not on file Type:Self Pay Address: [place], [place] Care Teams Evs Attendant Relationship Specialty Start Date End Date Chester Renee DO [address] [place] [address] PCP - General 08/01/20
--- OUTSIDE RECORDS SUMMARY | 2025-03-13 13:19 | XMS_ITS | Clinical Summary ---
Author Organization [facility] [id number] [facility] Address [address] [place] [address] Care Team Providers Care Php Mysql Web Developer Name Role Phone Chester Renee DO Primary Care Provider [phone] Allergies No known active allergies Medications vortioxetine (TRINTELLIX) 20 mg tablet Take 20 mg by mouth. 9 Active rOPINIRole (REQUIP) 3 mg Tablet 9 Active busPIRone (BUSPAR) 10 mg tablet TAKE 1 TABLET BY MOUTH TWICE DAILY 0 Active MULTIVITAMIN ORAL Take by mouth. Activ e L. acidophilus/L. rhamnosus (PROBIOTIC ORAL) Take by mouth. Activ e glucosamine sulfate (GLUCOSAMINE ORAL) Take by mouth. Activ e acyclovir (ZOVIRAX) 400 mg tablet Take 1 Tablet (400 mg) by mouth 2 times daily. 180 Tablet 3 1 Active Additional Information Patient not taking.Reported on 02/08/2025 dextromethorpha n-bupropion (Auvelity) 45-105 mg tablet, IR & ER, biphasic Take by mouth. Ac tive nystatin-triamc inolone (MYCOLOG-II) 100,000-0.1 unit/g-% Cream Apply to affected area 2 times daily. 60 Gram 1 4 Active atorvastatin (LIPITOR) 20 mg tablet Take 20 mg by mouth daily at bedtime. 5 Active lamoTRIgine (LaMICtal) 25 mg tablet TAKE 3 TABLETS TWICE A DAY 5 Active Belsomra 20 mg tablet Take 20 mg by mouth daily at bedtime. 5 Active Estradiol 0.5 mg/0.5 gram (0.1 %) Gel in Packet Apply 1 Package (0.5 mg) to skin as directed daily. 90 Packet 3 5 Active estradioL (Yuvafem) 10 mcg tablet Insert one every night for 14 nights and then twice a week. 36 Tablet 3 5 Active Active Problems Problem Noted Date Diagnosed Date LLQ abdominal pain 01/20/2019 Encounters Date Type Department Care Team Description 03/07/[address] [id number] Sarah Abarca, 02/28/2025 External Device Data ST[facility] ABSTRACTION Provider, Abstract 02/15/2025 External Device Data [facility] ABSTRACTION Provider, Abstract 02/10/2025 Orders Only [address] [id number] Provider, Abstract 02/09/[address] [address] Sarah Abarca, 02/08/2025 9:20 AM CDT Office Visit [address] [address] Sarah Abarca, DO Well woman exam with routine gynecological exam (Primary Dx); Breast cancer screening by mammogram; Postmenopausal hormone replacement therapy 02/07/2025 External Device Data ST[facility] ABSTRACTION Provider, Abstract 02/07/2025 External Device Data [facility] ABSTRACTION Provider, Abstract 02/06/2025 External Device Data ST[facility] ABSTRACTION Provider, Abstract 02/04/2025 External Device Data [facility] ABSTRACTION Provider, Abstract 02/03/2025 External Device Data ST[facility] ABSTRACTION Provider, Abstract 02/01/2025 External Device Data ST[facility] ABSTRACTION Provider, Abstract 01/17/2025 External Device Data ST[facility] ABSTRACTION Provider, Abstract 12/21/2024 External Device Data ST[facility] ABSTRACTION Provider, Abstract 12/21/2024 External Device Data STL ABSTRACTION Provider, Abstract 12/17/2024 Refill [facility] - [address] [place] [phone] Sarah Abarca DO from Last 3 Months Family History Medical History Relation Name Comments Diabetes Father Heart Disease Father Hypertension Father Thyroid Disease Mother Relation Name Status Comments Father Mother Social History Tobacco Use Types Packs/Day Years Used Date Smoking Tobacco: Former Comments Unknown Sex and Gender Information Value Date Recorded Sex Assigned at Female 12/05/2024 4:56 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 Legal Sex Female 3:19 AM PORT CDL A DRIVER Gender Identity Female 12/05/2024 4:56 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 Sexual Orientation Straight 12/05/2024 4: 56 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 Last Filed Vital Signs Vital Sign Reading Time Taken Comments Blood Pressure 130/74 02/08/2025 9:16 AM CDT Pulse - - Temperature 36.5 C (97.7 F) 12/24/2021 9:14 AM PORT CDL A DRIVER Respiratory Rate - - Oxygen Saturation - - Inhaled Oxygen Concentration - - Weight 96.5 kg (212 lb 12.8 oz) 02/08/2025 9:16 AM CDT Height 165.1 cm (5' 5 ) 02/08/2025 9:16 AM CDT Body Mass Index 35.41 02/08/2025 9:16 AM CDT Plan of Treatment Upcoming Encounters Date Type Department Care Team (Late st Contact Info) Description 02/14/2026 9:20 AM CDT Office Visit [facility] - [address] [place] [phone] [place] A[place] [id number] [place] [id number] Health Maintenance Due Date Last Done Comments Pre-Diabetes and Diabetes Screening 1965 DTAP/TDAP/TD VACCINES (1 - Tdap) 1983 FIT-DNA Q 3 years 2009 FIT/FOBT Q 1 year 2009 Flex Sig/CT Colonography Q 5 years 2009 ZOSTER VACCINE (1 of 2) 2014 INFLUENZA VACCINE (#1) 2024 BREAST CANCER SCREENING 12/22/2025 12/22/2024, 05/14 COLORECTAL SCREENING 10/20/2028 10/20/2018 Colorectal Cancer Screening 10/20/2028 RSV VACCINE (60+ or ) (1 - 1-dose 75+ series) 2039 Preventative Visit- Commercial Completed 02/08/2025, 12/24/2021, 12/20/2020, Additional history exists HEPATITIS B VACCINES Aged Out No long er eligible based on patient's age to complete this topic Procedures Procedure Name Priority Date/Time Associated Diagnosis Comments MAMMO SCREEN BILAT W OR WO CAD Routine 12/22/2024 12:37 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 from Last 3 Months Results * MAMMO SCREEN BILAT W OR WO CAD (12/22/2024 12:37 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) Anatomical Region Laterality Modality Breast Bilateral Mammography us Abstract Provider MAMMO ORDERABLES Edited Result - Final from Last 3 Months Insurance [facility] BLUE ACCESS/TRUE BLUE PPO Care Teams Php Mysql Web Developer Relationship Specialty Start Date End Date Chester Renee DO [address] [facility] [address] [place] [id number] PCP - General Internal Medicine 12/20/20
--- OUTSIDE RECORDS SUMMARY | 2025-03-13 13:19 | XMS_ITS | Encounter Summary ---
Author Organization [facility] Address [address] [place] [address] Care Team Providers Care Instrument Lens Generator Name Role Phone Chester Renee DO Primary Care Provider [phone] Encounter Details Date Type Department Care Team (Latest Contact Info) Description 03/03/2005 Inpatient Historical HIS PATIENT IN A BED Tomi Fox MD [address] [place] [id number] Laz Vargas MD [address] [address] SEVERE PREECLAMP-DELIVER (Primary Dx) Social History Tobacco Use Types Packs/Day Years Used Date Smoking Tobacco: Never Assessed Comments Unknown Sex and Gender Information Value Date Recorded Sex Assigned at Female 12/05/2024 4:56 PM HEAVY CLE[employer]ER Legal Sex Female 3:19 AM HEAVY CLEANER Gender Identity Female 12/05/2024 4:56 PM HEAVY CLEANER Sexual Orientation Straight 12/05/2024 4: 56 PM HEAVY CLEANER documented as of this encounter Plan of Treatment Upcoming Encounters Date Type Department Care Team (Late st Contact Info) Description 02/14/2026 9:20 AM CDT Office Visit [facility] - [address] [place] [address] [address] [place] [address] [place] [id number] [facility] [address] [place] [address] documented as of this encounter Procedures Procedure Name Priority Date/Time Associated Diagnosis Comments PT AND APTT Routine 03/08/2005 4:45 AM CDT CBC WITH DIFFERENTIAL Routine 03/08/2005 4:45 AM CDT CBC WITH DIFFERENTIAL Routine 03/08/2005 4:45 AM CDT PT AND APTT Routine 03/07/2005 4:45 AM CDT CBC WITH DIFFERENTIAL Routine 03/07/2005 4:45 AM CDT CBC WITH DIFFERENTIAL Routine 03/07/2005 4:45 AM CDT PHOSPHORUS Routine 03/07/2005 4:45 AM CDT MAGNESIUM LEVEL Routine 03/07/2005 4:45 AM CDT CALCIUM IONIZED Routine 03/07/2005 4:45 AM CDT ALBUMIN LEVEL Routine 03/07/2005 4:45 AM CDT BASIC METABOLIC PANEL Routine 03/07/2005 4:45 AM CDT CBC WITH DIFFERENTIAL Routine 03/06/2005 11:49 PM CDT CBC WITH DIFFERENTIAL Routine 03/06/2005 11:49 PM CDT MAGNESIUM LEVEL Routine 03/06/2005 11:49 PM CDT BASIC METABOLIC PANEL Routine 03/06/2005 11:49 PM CDT DIC PROFILE Routine 03/06/2005 4:26 PM CDT CBC WITH DIFFERENTIAL Routine 03/06/2005 4:26 PM CDT CBC WITH DIFFERENTIAL Routine 03/06/2005 4:26 PM CDT PHOSPHORUS Routine 03/06/2005 4:26 PM CDT MAGNESIUM LEVEL Routine 03/06/2005 4:26 PM CDT COMPREHENSIVE METABOLIC PANEL Routine 03/06/2005 4:26 PM CDT DIC PROFILE Routine 03/06/2005 12:31 PM CDT CBC WITH DIFFERENTIAL Routine 03/06/2005 12:31 PM CDT CBC WITH DIFFERENTIAL Routine 03/06/2005 12:31 PM CDT COMPREHENSIVE METABOLIC PANEL Routine 03/06/2005 12:31 PM CDT DIC PROFILE Routine 03/06/2005 8:56 AM CDT CBC WITH DIFFERENTIAL Routine 03/06/2005 8:56 AM CDT CBC WITH DIFFERENTIAL Routine 03/06/2005 8:56 AM CDT MATERNAL BLEED, QUANTITATIVE STAIN Routine 03/06/2005 8:56 AM CDT BLOOD GAS CORD VENOUS Routine 03/06/2005 8:09 AM CDT BLOOD GAS CORD ARTERIAL Routine 03/06/2005 8:09 AM CDT PT AND APTT Routine 03/06/2005 5:36 AM CDT CBC WITH DIFFERENTIAL Routine 03/06/2005 5:36 AM CDT CBC WITH DIFFERENTIAL Routine 03/06/2005 5:36 AM CDT TSH Routine 03/06/2005 5:36 AM CDT COMPREHENSIVE METABOLIC PANEL Routine 03/06/2005 5:36 AM CDT CREATININE CLEARANCE, SERUM Routine 03/05/2005 6:24 AM CDT CREATININE, 24 HR URINE Routine 03/05/2005 6:24 AM CDT PROTEIN, 24 HR URINE Routine 03/05/2005 6:24 AM CDT CREATININE CLEARANCE Routine 03/05/2005 6:24 AM CDT CBC WITH DIFFERENTIAL Routine 03/05/2005 5:02 AM CDT CBC WITH DIFFERENTIAL Routine 03/05/2005 5:02 AM CDT URIC ACID Routine 03/05/2005 5:02 AM CDT ALT Routine 03/05/2005 5:02 AM CDT AST Routine 03/05/2005 5:02 AM CDT LACTATE DEHYDROGENASE Routine 03/05/2005 5:02 AM CDT DIC PROFILE Routine 03/04/2005 3:34 PM CDT CBC WITH DIFFERENTIAL Routine 03/04/2005 3:34 PM CDT CBC WITH DIFFERENTIAL Routine 03/04/2005 3:34 PM CDT URIC ACID Routine 03/04/2005 3:34 PM CDT AST Routine 03/04/2005 3:34 PM CDT LACTATE DEHYDROGENASE Routine 03/04/2005 3:34 PM CDT DIC PROFILE Routine 03/04/2005 9:16 AM CDT CBC WITH DIFFERENTIAL Routine 03/04/2005 8:54 AM CDT CBC WITH DIFFERENTIAL Routine 03/04/2005 8:54 AM CDT URIC ACID Routine 03/04/2005 8:54 AM CDT ALT Routine 03/04/2005 8:54 AM CDT AST Routine 03/04/2005 8:54 AM CDT ALKALINE PHOSPHATASE Routine 03/04/2005 8:54 AM CDT LACTATE DEHYDROGENASE Routine 03/04/2005 8:54 AM CDT CBC WITH DIFFERENTIAL Routine 03/04/2005 6:03 AM CDT CBC WITH DIFFERENTIAL Routine 03/04/2005 6:03 AM CDT URIC ACID Routine 03/04/2005 6:03 AM CDT ALT Routine 03/04/2005 6:03 AM CDT AST Routine 03/04/2005 6:03 AM CDT ALKALINE PHOSPHATASE Routine 03/04/2005 6:03 AM CDT LACTATE DEHYDROGENASE Routine 03/04/2005 6:03 AM CDT COMPREHENSIVE METABOLIC PANEL Routine 03/04/2005 1:21 AM CDT URIC ACID Routine 03/04/2005 1:20 AM CDT AST Routine 03/04/2005 1:20 AM CDT LACTATE DEHYDROGENASE Routine 03/04/2005 1:20 AM CDT CBC WITH DIFFERENTIAL Routine 03/03/2005 11:46 PM CDT CBC WITH DIFFERENTIAL Routine 03/03/2005 11:46 PM CDT URINALYSIS WITH MICROSCOPIC Routine 03/03/2005 11:37 PM CDT documented in this encounter Results * (ABNORMAL) CBC WITH DIFFERENTIAL (03/08/2005 4:45 AM CDT) NEUTROPHIL ABSOLUTE 10.82(H) 1.90 - 7.00 K/uL INTERFACE SYSTEM LYMPHOCYTE ABSOLUTE 1.32 0.70 - 4.50 K/uL INTERFACE SYSTEM MONOCYTE ABSOLUTE 0.26 0.10 - 1.30 K/uL INTERFACE SYSTEM EOSINOPHIL ABSOLUTE 0.00 0.00 - 0.70 K/uL INTERFACE SYSTEM BASOPHILS ABSOLUTE 0.00 0.00 - 0.20 K/uL INTERFACE SYSTEM NEUTROPHILS, SEG 82(H) 45 - 70 % INT ERFACE SYSTEM LYMPHOCYTES 9(L) 16 - 45 % INTERFAC E SYSTEM MONOCYTES 2(L) 3 - 13 % INTERFACE SYSTEM EOSINOPHILS 0 0 - 7 % INTERFAC E SYSTEM BASOPHILS 0 0 - 2 % INTERFACE SYSTEM METAMYELOCYTE 1(H) <=0 % INTERF MARTHA SYSTEM MYELOCYTES 3(H) <=0 % INTERFACE SYSTEM PROMYELOCYTE 2(H) <=0 % INTERFA CE SYSTEM ATYPICAL LYMPHOCYTE 1 0 - 5 % INTERFACE SYSTEM PLATELET EST. Slt. Decreased(A ) Normal INTERFACE SYSTEM ANISOCYTOSIS Slight INTERFA CE SYSTEM POIKILOCYTES Slight INTERFA CE SYSTEM MICROCYTES Slight INTERFACE SYSTEM POLYCHROMASIA Slight INTERF MARTHA SYSTEM TOXIC GRANULATION Slight IN TERFACE SYSTEM GIANT PLATELETS Present INTE RFACE SYSTEM 03/08/2005 4:45 AM CDT us Laz Vargas MD HEMATOLOGY ORDERABLES Fi nal Result INTERFACE SYSTEM Refer to clinic/hospital department * (ABNORMAL) CBC WITH DIFFERENTIAL (03/08/2005 4:45 AM CDT) WBC 13.2(H) 4.0 - 9.8 K/uL INTERFACE SYSTEM RBC 2.80(L) 3.90 - 4.90 M/uL INTERFACE SYSTEM HEMOGLOBIN 8.4(L) 11.8 - 14.8 g/dL INTERFACE SYSTEM HEMATOCRIT 25.0(L) 35.5 - 44.0 % INTERFACE SYSTEM MCV 89.3 82.0 - 99.0 fL INTERFACE SYSTEM MCH 30.0 27.2 - 32.6 pg INTERFACE SYSTEM MCHC 33.6 31.5 - 35.5 % INTERFACE SYSTEM RDW 16.3(H) 11.5 - 14.5 % INTERFACE SYSTEM RDW-STDEV 51.9(H) 37.1 - 48.7 fL INTERFACE SYSTEM PLATELETS 107(L) 140 - 350 K/uL INTERFACE SYSTEM MPV 10.0 9.3 - 12.4 fL INTERFACE SYSTEM 03/08/2005 4:45 AM CDT us Laz Vargas MD HEMATOLOGY ORDERABLES Fi nal Result Performing Organization Address City/[facility] Co de Phone Number INTERFACE SYSTEM Refer to clinic/hospital department * PT AND APTT (03/08/2005 4:45 AM CDT) PROTIME 13.3 12.9 - 15.7 Seconds INTERFACE SYSTEM INR 0.9 0.9 - 1.1 INTERFACE SYSTEM Comment: INR Therapeutic Range: Adult: 2.0 - 3.0 for pulmonary embolism or prophylaxis against venous thrombosis or systemic embolization. 2.0 - 3.0 for patients with tissue heart valves. 3.0 - 4.5 for patients with mechanical heart valves. Pediatric (12 years and under): 1.5 - 3.0 Although the target range in children is not well established, INR values of 1.5 - 3.0 are recommended for most patients. Higher values have been used in children with prosthetic cardiac valves and hereditary clotting disorders. (<3 days) therapeutic ranges have not been established. PTT 33.6 25.0 - 35.0 Seconds INTERFACE SYSTEM Comment: PTT Therapeutic Range: Heparin Level PTT (seconds) <0.10 units/mL <45 0.10 - 0.30 units/mL 45 - 65 0.30 - 0.70 units/mL* 65 - 106* 0.70 - 1.00 units/mL 106 - 137 *corresponds to therapeutic range for unfractionated heparin 03/08/2005 4:45 AM CDT us Laz Vargas MD HEMATOLOGY ORDERABLES Fi nal Result Performing Organization Address [facility] Co de Phone Number INTERFACE SYSTEM Refer to clinic/hospital department * PT AND APTT (03/07/2005 4:45 AM CDT) PROTIME 14.3 12.9 - 15.7 Seconds INTERFACE SYSTEM INR 1.0 0.9 - 1.1 INTERFACE SYSTEM Comment: INR Therapeutic Range: Adult: 2.0 - 3.0 for pulmonary embolism or prophylaxis against venous thrombosis or systemic embolization. 2.0 - 3.0 for patients with tissue heart valves. 3.0 - 4.5 for patients with mechanical heart valves. Pediatric (12 years and under): 1.5 - 3.0 Although the target range in children is not well established, INR values of 1.5 - 3.0 are recommended for most patients. Higher values have been used in children with prosthetic cardiac valves and hereditary clotting disorders. (<3 days) therapeutic ranges have not been established. PTT 32.9 25.0 - 35.0 Seconds INTERFACE SYSTEM Comment: PTT Therapeutic Range: Heparin Level PTT (seconds) <0.10 units/mL <45 0.10 - 0.30 units/mL 45 - 65 0.30 - 0.70 units/mL* 65 - 106* 0.70 - 1.00 units/mL 106 - 137 *corresponds to therapeutic range for unfractionated heparin 03/07/2005 4:45 AM CDT Alvino Migel HEMATOLOGY ORDERABLES Final Resu lt INTERFACE SYSTEM Refer to clinic/hospital department * (ABNORMAL) CBC WITH DIFFERENTIAL (03/07/2005 4:45 AM CDT) NEUTROPHIL ABSOLUTE 8.96(H) 1.90 - 7.00 K/uL INTERFACE SYSTEM LYMPHOCYTE ABSOLUTE 1.46 0.70 - 4.50 K/uL INTERFACE SYSTEM MONOCYTE ABSOLUTE 0.56 0.10 - 1.30 K/uL INTERFACE SYSTEM EOSINOPHIL ABSOLUTE 0.00 0.00 - 0.70 K/uL INTERFACE SYSTEM BASOPHILS ABSOLUTE 0.00 0.00 - 0.20 K/uL INTERFACE SYSTEM NEUTROPHILS, SEG 80(H) 45 - 70 % INT ERFACE SYSTEM LYMPHOCYTES 13(L) 16 - 45 % INTERFAC E SYSTEM MONOCYTES 5 3 - 13 % INTERFACE SYSTEM EOSINOPHILS 0 0 - 7 % INTERFAC E SYSTEM BASOPHILS 0 0 - 2 % INTERFACE SYSTEM METAMYELOCYTE 1(H) <=0 % INTERF MARTHA SYSTEM MYELOCYTES 1(H) <=0 % INTERFACE SYSTEM PLATELET EST. Mod. Decreased( A) Normal INTERFACE SYSTEM ANISOCYTOSIS Slight INTERFA CE SYSTEM POLYCHROMASIA Slight INTERF MARTHA SYSTEM 03/07/2005 4:45 AM CDT [employer] HEMATOLOGY ORDERABLES Final Resu lt Performing Organization Address City/[facility]/ZIP Co de Phone Number INTERFACE SYSTEM Refer to clinic/hospital department * (ABNORMAL) CBC WITH DIFFERENTIAL (03/07/2005 4:45 AM CDT) WBC 11.2(H) 4.0 - 9.8 K/uL INTERFACE SYSTEM RBC 2.70(L) 3.90 - 4.90 M/uL INTERFACE SYSTEM HEMOGLOBIN 8.2(L) 11.8 - 14.8 g/dL INTERFACE SYSTEM HEMATOCRIT 23.6(AA) 35.5 - 44.0 % INTERFACE SYSTEM Comment: Verified by repeat analysis. Results called to marci at 03/07/2005 5:38 AM and read back verified. MCV 87.4 82.0 - 99.0 fL INTERFACE SYSTEM MCH 30.4 27.2 - 32.6 pg INTERFACE SYSTEM MCHC 34.7 31.5 - 35.5 % INTERFACE SYSTEM RDW 16.7(H) 11.5 - 14.5 % INTERFACE SYSTEM RDW-STDEV 52.7(H) 37.1 - 48.7 fL INTERFACE SYSTEM PLATELETS 66(L) 140 - 350 K/uL INTERFACE SYSTEM Comment:Persistent abnormal result MPV 10.8 9.3 - 12.4 fL INTERFACE SYSTEM 03/07/2005 4:45 AM CDT [employer] HEMATOLOGY ORDERABLES Final Resu lt Performing Organization Address City/[facility] Co de Phone Number INTERFACE SYSTEM Refer to clinic/hospital department * PHOSPHORUS (03/07/2005 4:45 AM CDT) PHOSPHORUS 3.2 2.5 - 4.5 mg/dL INTERFACE SYSTEM 03/07/2005 4:45 AM CDT [facility] ORDERABLES Final Resul t Performing Organization Address [facility] Number INTERFACE SYSTEM Refer to clinic/hospital department * MAGNESIUM LEVEL (03/07/2005 4:45 AM CDT) MAGNESIUM 2.4 1.5 - 2.5 mg/dL INTERFACE SYSTEM 03/07/2005 4:45 AM CDT Alvino Migel CHEMISTRY ORDERABLES Final Resul t Performing Organization Address [facility] Number INTERFACE SYSTEM Refer to clinic/hospital department * (ABNORMAL) BASIC METABOLIC PANEL (03/07/2005 4:45 AM CDT) GLUCOSE 85 65 - 109 mg/dL INTERFACE SYSTEM CREATININE 0.7 0.4 - 1.2 mg/dL INTERFACE SYSTEM BUN 10 6 - 20 mg/dL INTERFACE SYSTEM SODIUM 137 135 - 145 mmol/L INTERFACE SYSTEM POTASSIUM 4.7 3.5 - 4.9 mmol/L INTERFACE SYSTEM CHLORIDE 108 96 - 108 mmol/L INTERFACE SYSTEM CO2 28 22 - 30 mmol/L INTERFACE SYSTEM CALCIUM 6.1(AA) 8.6 - 10.2 mg/dL INTERFACE SYSTEM Comment:Results called to baldo salazar at 03/07/2005 6:06 AM and read back verified. 03/07/2005 4:45 AM CDT Alvino Migel CHEMISTRY ORDERABLES Final Resul t Performing Organization Address [facility] Phone Number INTERFACE SYSTEM Refer to clinic/hospital department * (ABNORMAL) ALBUMIN LEVEL (03/07/2005 4:45 AM CDT) ALBUMIN 2.3(L) 3.4 - 4.8 g/dL INTERFACE SYSTEM 03/07/2005 4:45 AM CDT Tim Fernandez MD CHEMISTRY ORDERABLES Fi nal Result Performing Organization Address [facility] Phone Number INTERFACE SYSTEM Refer to clinic/hospital department * (ABNORMAL) CALCIUM IONIZED (03/07/2005 4:45 AM CDT) [facility] CALCIUM IONIZED 3.80(L) 4.76 - 5.16 mg/dL INTERFACE SYSTEM 03/07/2005 4:45 AM CDT Tim Fernandez MD CHEMISTRY ORDERABLES Fi nal Result Performing Organization Address [facility] Phone Number INTERFACE SYSTEM Refer to clinic/hospital department * (ABNORMAL) CBC WITH DIFFERENTIAL (03/06/2005 11:49 PM CDT) [facility] NEUTROPHIL ABSOLUTE 6.32 1.90 - 7.00 K/uL INTERFACE SYSTEM LYMPHOCYTE ABSOLUTE 1.78 0.70 - 4.50 K/uL INTERFACE SYSTEM MONOCYTE ABSOLUTE 0.00(L) 0.10 - 1.30 K/uL INTERFACE SYSTEM EOSINOPHIL ABSOLUTE 0.00 0.00 - 0.70 K/uL INTERFACE SYSTEM BASOPHILS ABSOLUTE 0.09 0.00 - 0.20 K/uL INTERFACE SYSTEM NEUTROPHILS, SEG 71(H) 45 - 70 % INT ERFACE SYSTEM LYMPHOCYTES 20 16 - 45 % INTERFAC E SYSTEM MONOCYTES 0(L) 3 - 13 % INTERFACE SYSTEM EOSINOPHILS 0 0 - 7 % INTERFAC E SYSTEM BASOPHILS 1 0 - 2 % INTERFACE SYSTEM MYELOCYTES 5(H) <=0 % INTERFACE SYSTEM PROMYELOCYTE 3(H) <=0 % INTERFA CE SYSTEM PLATELET EST. Mod. Decreased( A) Normal INTERFACE SYSTEM ANISOCYTOSIS Slight INTERFA CE SYSTEM POIKILOCYTES Slight INTERFA CE SYSTEM MICROCYTES Slight INTERFACE SYSTEM POLYCHROMASIA Slight INTERF MARTHA SYSTEM HYPOCHROMIA Slight INTERFAC E SYSTEM TOXIC GRANULATION Slight IN TERFACE SYSTEM 03/06/2005 11:4 9 PM CDT Tim Fernandez MD HEMATOLOGY ORDERABLES F inal Result Performing Organization Address [facility] Phone Number INTERFACE SYSTEM Refer to clinic/hospital department * (ABNORMAL) CBC WITH DIFFERENTIAL (03/06/2005 11:49 PM CDT) Pathologist [facility] WBC 8.9 4.0 - 9.8 K/uL INTERFACE SYSTEM RBC 2.83(L) 3.90 - 4.90 M/uL INTERFACE SYSTEM HEMOGLOBIN 8.4(L) 11.8 - 14.8 g/dL INTERFACE SYSTEM HEMATOCRIT 24.6(L) 35.5 - 44.0 % INTERFACE SYSTEM MCV 86.9 82.0 - 99.0 fL INTERFACE SYSTEM MCH 29.7 27.2 - 32.6 pg INTERFACE SYSTEM MCHC 34.1 31.5 - 35.5 % INTERFACE SYSTEM RDW 16.4(H) 11.5 - 14.5 % INTERFACE SYSTEM RDW-STDEV 51.1(H) 37.1 - 48.7 fL INTERFACE SYSTEM PLATELETS 62(L) 140 - 350 K/uL INTERFACE SYSTEM Comment:Persistent abnormal result MPV 10.9 9.3 - 12.4 fL INTERFACE SYSTEM 03/06/2005 11:4 9 PM CDT Tim Fernandez MD HEMATOLOGY ORDERABLES F inal Result Performing Organization Address [facility] Phone Number INTERFACE SYSTEM Refer to clinic/hospital department * (ABNORMAL) MAGNESIUM LEVEL (03/06/2005 11:49 PM CDT) [facility] MAGNESIUM 2.7(H) 1.5 - 2.5 mg/dL INTERFACE SYSTEM 03/06/2005 11:4 9 PM CDT Tim Fernandez MD CHEMISTRY ORDERABLES Fi nal Result Performing Organization Address [facility] Phone Number INTERFACE SYSTEM Refer to clinic/hospital department * (ABNORMAL) BASIC METABOLIC PANEL (03/06/2005 11:49 PM CDT) Pathologist [facility] GLUCOSE 91 65 - 109 mg/dL INTERFACE SYSTEM CREATININE 0.7 0.4 - 1.2 mg/dL INTERFACE SYSTEM BUN 10 6 - 20 mg/dL INTERFACE SYSTEM SODIUM 138 135 - 145 mmol/L INTERFACE SYSTEM POTASSIUM 4.9 3.5 - 4.9 mmol/L INTERFACE SYSTEM CHLORIDE 109(H) 96 - 108 mmol/L INTERFACE SYSTEM CO2 28 22 - 30 mmol/L INTERFACE SYSTEM CALCIUM 5.7(AA) 8.6 - 10.2 mg/dL INTERFACE SYSTEM Comment: Results confirmed by 2nd methodology. Results called to Henry at 03/07/2005 12:23 AM and read back verified. 03/06/2005 11:4 9 PM CDT Tim Fernandez MD CHEMISTRY ORDERABLES Fi nal Result Performing Organization Address [facility] Phone Number INTERFACE SYSTEM Refer to clinic/hospital department * (ABNORMAL) CBC WITH DIFFERENTIAL (03/06/2005 4:26 PM CDT) NEUTROPHIL ABSOLUTE 9.92(H) 1.90 - 7.00 K/uL INTERFACE SYSTEM LYMPHOCYTE ABSOLUTE 0.80 0.70 - 4.50 K/uL INTERFACE SYSTEM MONOCYTE ABSOLUTE 0.57 0.10 - 1.30 K/uL INTERFACE SYSTEM EOSINOPHIL ABSOLUTE 0.00 0.00 - 0.70 K/uL INTERFACE SYSTEM BASOPHILS ABSOLUTE 0.00 0.00 - 0.20 K/uL INTERFACE SYSTEM NEUTROPHILS, SEG 85(H) 45 - 70 % INT ERFACE SYSTEM BANDS 2 0 - 5 % INTERFACE SYSTEM LYMPHOCYTES 7(L) 16 - 45 % INTERFAC E SYSTEM MONOCYTES 5 3 - 13 % INTERFACE SYSTEM EOSINOPHILS 0 0 - 7 % INTERFAC E SYSTEM BASOPHILS 0 0 - 2 % INTERFACE SYSTEM MYELOCYTES 1(H) <=0 % INTERFACE SYSTEM PLATELET EST. Mod. Decreased(A) Normal INTERFACE SYSTEM ANISOCYTOSIS Slight INTERFA CE SYSTEM POIKILOCYTES Slight INTERFA CE SYSTEM MICROCYTES Slight INTERFACE SYSTEM POLYCHROMASIA Slight INTERF MARTHA SYSTEM HYPOCHROMIA Slight INTERFAC E SYSTEM TARGET CELLS Slight INTERFA CE SYSTEM GIANT PLATELETS Present INTE RFACE SYSTEM REVIEWED ON SMEAR WBC & Plt Reviewed INTERFACE SYSTEM 03/06/2005 4:26 PM CDT Tim Fernandez MD HEMATOLOGY ORDERABLES F inal Result Performing Organization Address [facility] Phone Number INTERFACE SYSTEM Refer to clinic/hospital department * (ABNORMAL) CBC WITH DIFFERENTIAL (03/06/2005 4:26 PM CDT) WBC 11.4(H) 4.0 - 9.8 K/uL INTERFACE SYSTEM RBC 2.99(L) 3.90 - 4.90 M/uL INTERFACE SYSTEM HEMOGLOBIN 9.0(L) 11.8 - 14.8 g/dL INTERFACE SYSTEM Comment:Verified by repeat a nalysis. HEMATOCRIT 26.2(L) 35.5 - 44.0 % INTERFACE SYSTEM MCV 87.6 82.0 - 99.0 fL INTERFACE SYSTEM MCH 30.1 27.2 - 32.6 pg INTERFACE SYSTEM MCHC 34.4 31.5 - 35.5 % INTERFACE SYSTEM RDW 15.8(H) 11.5 - 14.5 % INTERFACE SYSTEM RDW-STDEV 49.7(H) 37.1 - 48.7 fL INTERFACE SYSTEM PLATELETS 68(L) 140 - 350 K/uL INTERFACE SYSTEM MPV 10.8 9.3 - 12.4 fL INTERFACE SYSTEM 03/06/2005 4:26 PM CDT us Tim Fernandez MD HEMATOLOGY ORDERABLES F inal Result INTERFACE SYSTEM Refer to clinic/hospital department * (ABNORMAL) DIC PROFILE (03/06/2005 4:26 PM CDT) PROTIME 15.6 12.9 - 15.7 Seconds INTERFACE SYSTEM INR 1.1 0.9 - 1.1 INTERFACE SYSTEM Comment: INR Therapeutic Range: Adult: 2.0 - 3.0 for pulmonary embolism or prophylaxis against venous thrombosis or systemic embolization. 2.0 - 3.0 for patients with tissue heart valves. 3.0 - 4.5 for patients with mechanical heart valves. Pediatric (12 years and under): 1.5 - 3.0 Although the target range in children is not well established, INR values of 1.5 - 3.0 are recommended for most patients. Higher values have been used in children with prosthetic cardiac valves and hereditary clotting disorders. (<3 days) therapeutic ranges have not been established. PTT 30.8 25.0 - 35.0 Seconds INTERFACE SYSTEM Comment: PTT Therapeutic Range: Heparin Level PTT (seconds) <0.10 units/mL <45 0.10 - 0.30 units/mL 45 - 65 0.30 - 0.70 units/mL* 65 - 106* 0.70 - 1.00 units/mL 106 - 137 *corresponds to therapeutic range for unfractionated heparin FIBRINOGEN 227 194 - 436 mg/dL INTERFACE SYSTEM D-DIMER QUANT >4.00(H) <=0.42 ug/mL FEU INTERFACE SYSTEM Comment: DVT Screen reference range <0.45 ug/mL FEU D. Dimer Interpretation: The reference range is not clearly established in uncomplicated pregnanc ies. Values above the upper limit of the reference range are common from the 31st to 40th week of . High negative predictive values for DVT have been reported with the current methodology, as part of a comprehensive medical examination, including risk stratification. 03/06/2005 4:26 PM CDT Tim Fernandez MD HEMATOLOGY ORDERABLES F inal Result Performing Organization Address [facility] Number INTERFACE SYSTEM Refer to clinic/hospital department * PHOSPHORUS (03/06/2005 4:26 PM CDT) PHOSPHORUS 3.1 2.5 - 4.5 mg/dL INTERFACE SYSTEM 03/06/2005 4:26 PM CDT Tim Fernandez MD CHEMISTRY ORDERABLES Fi nal Result Performing Organization Address [facility] Phone Number INTERFACE SYSTEM Refer to clinic/hospital department * (ABNORMAL) MAGNESIUM LEVEL (03/06/2005 4:26 PM CDT) MAGNESIUM 3.1(H) 1.5 - 2.5 mg/dL INTERFACE SYSTEM 03/06/2005 4:26 PM CDT Tim Fernandez MD CHEMISTRY ORDERABLES Fi nal Result Performing Organization Address [facility] Phone Number INTERFACE SYSTEM Refer to clinic/hospital department * (ABNORMAL) COMPREHENSIVE METABOLIC PANEL (03/06/2005 4:26 PM CDT) GLUCOSE 103 65 - 109 mg/dL INTERFACE SYSTEM CREATININE 0.6 0.4 - 1.2 mg/dL INTERFACE SYSTEM CALCIUM 5.6(AA) 8.6 - 10.2 mg/dL INTERFACE SYSTEM Comment:Results called to jonna holm at 03/06/2005 5:30 PM and read back verified. AST 54(H) 12 - 32 U/L INTERFACE SYSTEM ALKALINE PHOSPHATASE 63 35 - 104 U/L INTERFACE SYSTEM BUN 9 6 - 20 mg/dL INTERFACE SYSTEM BILIRUBIN TOTAL 1.1(H) 0.2 - 1.0 mg/dL INTERFACE SYSTEM ALBUMIN 2.3(L) 3.4 - 4.8 g/dL INTERFACE SYSTEM TOTAL PROTEIN 4.0(L) 6.3 - 8.6 g/dL INTERFACE SYSTEM ALT 67(H) 0 - 31 U/L INTERFACE SYSTEM SODIUM 139 135 - 145 mmol/L INTERFACE SYSTEM POTASSIUM 4.4 3.5 - 4.9 mmol/L INTERFACE SYSTEM CHLORIDE 108 96 - 108 mmol/L INTERFACE SYSTEM CO2 27 22 - 30 mmol/L INTERFACE SYSTEM 03/06/2005 4:2 6 PM CDT us Tim Fernandez MD CHEMISTRY ORDERABLES Fi nal Result INTERFACE SYSTEM Refer to clinic/hospital department * (ABNORMAL) CBC WITH DIFFERENTIAL (03/06/2005 12:31 PM CDT) NEUTROPHIL ABSOLUTE 10.51(H) 1.90 - 7.00 K/uL INTERFACE SYSTEM LYMPHOCYTE ABSOLUTE 1.75 0.70 - 4.50 K/uL INTERFACE SYSTEM MONOCYTE ABSOLUTE 2.34(H) 0.10 - 1.30 K/uL INTERFACE SYSTEM EOSINOPHIL ABSOLUTE 0.00 0.00 - 0.70 K/uL INTERFACE SYSTEM BASOPHILS ABSOLUTE 0.00 0.00 - 0.20 K/uL INTERFACE SYSTEM NEUTROPHILS, SEG 71(H) 45 - 70 % INT ERFACE SYSTEM BANDS 1 0 - 5 % INTERFACE SYSTEM LYMPHOCYTES 12(L) 16 - 45 % INTERFAC E SYSTEM MONOCYTES 16(H) 3 - 13 % INTERFACE SYSTEM EOSINOPHILS 0 0 - 7 % INTERFAC E SYSTEM BASOPHILS 0 0 - 2 % INTERFACE SYSTEM PLATELET EST. Mkd. Decreased(A ) Normal INTERFACE SYSTEM ANISOCYTOSIS Slight INTERFA CE SYSTEM POIKILOCYTES Slight INTERFA CE SYSTEM POLYCHROMASIA Slight INTERF MARTHA SYSTEM VIDAL CELLS Slight INTERFACE SYSTEM GIANT PLATELETS Present INTE RFACE SYSTEM REVIEWED ON SMEAR Plt OK by Smear Rev. INTERFACE SYSTEM 03/06/2005 12:3 1 PM CDT us Tomi Fox MD HEMATOLOGY ORDERABLES Final Result Performing Organization Address [facility] de Phone Number INTERFACE SYSTEM Refer to clinic/hospital department * (ABNORMAL) CBC WITH DIFFERENTIAL (03/06/2005 12:31 PM CDT) WBC 14.6(H) 4.0 - 9.8 K/uL INTERFACE SYSTEM RBC 3.78(L) 3.90 - 4.90 M/uL INTERFACE SYSTEM HEMOGLOBIN 11.4(L) 11.8 - 14.8 g/dL INTERFACE SYSTEM HEMATOCRIT 33.6(L) 35.5 - 44.0 % INTERFACE SYSTEM MCV 88.9 82.0 - 99.0 fL INTERFACE SYSTEM Comment:pt received blood MCH 30.2 27.2 - 32.6 pg INTERFACE SYSTEM MCHC 33.9 31.5 - 35.5 % INTERFACE SYSTEM RDW 15.5(H) 11.5 - 14.5 % INTERFACE SYSTEM RDW-STDEV 49.5(H) 37.1 - 48.7 fL INTERFACE SYSTEM PLATELETS 47(L) 140 - 350 K/uL INTERFACE SYSTEM Comment:Platelets verified b y smear review. MPV 10.9 9.3 - 12.4 fL INTERFACE SYSTEM 03/06/2005 12:3 1 PM CDT us Tomi Fox MD HEMATOLOGY ORDERABLES Final Result Performing Organization Address City/[facility] Co de Phone Number INTERFACE SYSTEM Refer to clinic/hospital department * (ABNORMAL) DIC PROFILE (03/06/2005 12:31 PM CDT) PROTIME 16.3(H) 12.9 - 15.7 Seconds INTERFACE SYSTEM INR 1.2(H) 0.9 - 1.1 INTERFACE SYSTEM Comment: INR Therapeutic Range: Adult: 2.0 - 3.0 for pulmonary embolism or prophylaxis against venous thrombosis or systemic embolization. 2.0 - 3.0 for patients with tissue heart valves. 3.0 - 4.5 for patients with mechanical heart valves. Pediatric (12 years and under): 1.5 - 3.0 Although the target range in children is not well established, INR values of 1.5 - 3.0 are recommended for most patients. Higher values have been used in children with prosthetic cardiac valves and hereditary clotting disorders. (<3 days) therapeutic ranges have not been established. PTT 30.3 25.0 - 35.0 Seconds INTERFACE SYSTEM Comment: PTT Therapeutic Range: Heparin Level PTT (seconds) <0.10 units/mL <45 0.10 - 0.30 units/mL 45 - 65 0.30 - 0.70 units/mL* 65 - 106* 0.70 - 1.00 units/mL 106 - 137 *corresponds to therapeutic range for unfractionated heparin FIBRINOGEN 211 194 - 436 mg/dL INTERFACE SYSTEM D-DIMER QUANT >4.00(H) <=0.42 ug/mL FEU INTERFACE SYSTEM Comment: DVT Screen reference range <0.45 ug/mL FEU D. Dimer Interpretation: The reference range is not clearly established in uncomplicated pregnanc ies. Values above the upper limit of the reference range are common from the 31st to 40th week of . High negative predictive values for DVT have been reported with the current methodology, as part of a comprehensive medical examination, including risk stratification. Persistent abnormal result 03/06/2005 12:3 1 PM CDT us Tomi Fox MD HEMATOLOGY ORDERABLES Final Result INTERFACE SYSTEM Refer to clinic/hospital department * (ABNORMAL) COMPREHENSIVE METABOLIC PANEL (03/06/2005 12:31 PM CDT) GLUCOSE 125(H) 65 - 109 mg/dL INTERFACE SYSTEM CREATININE 0.6 0.4 - 1.2 mg/dL INTERFACE SYSTEM AST 54(H) 12 - 32 U/L INTERFACE SYSTEM ALKALINE PHOSPHATASE 70 35 - 104 U/L INTERFACE SYSTEM BUN 9 6 - 20 mg/dL INTERFACE SYSTEM BILIRUBIN TOTAL 1.2(H) 0.2 - 1.0 mg/dL INTERFACE SYSTEM ALBUMIN 2.6(L) 3.4 - 4.8 g/dL INTERFACE SYSTEM TOTAL PROTEIN 4.1(L) 6.3 - 8.6 g/dL INTERFACE SYSTEM Comment: Testing was performed on Serum. Specimen of choice is [place] Heparinized Plasma. Serum TP Ref. Range: 3 years - 150 years 6.0 - 8.3 g/dL 1 year - 3 years 5.6 - 7.5 g/dL 7 days - 1 year 4.7 - 7.3 g/dL 0 days - 7 days 4.4 - 7.6 g/dL ALT 60(H) 0 - 31 U/L INTERFACE SYSTEM SODIUM 141 135 - 145 mmol/L INTERFACE SYSTEM POTASSIUM 4.3 3.5 - 4.9 mmol/L INTERFACE SYSTEM Comment: Testing was performed on Serum. Specimen of choice is [place] Heparinized Plasma. Serum Potassium Reference Range: 5 years - 150 years 3.5 - 5.0 mmol/L 1 year - 5 years 3.4 - 4.7 mmol/L 15 days - 1 year 4.1 - 5.3 mmol/L 0 days - 15 days 3.7 - 5.9 mmol/L CHLORIDE 109(H) 96 - 108 mmol/L INTERFACE SYSTEM CO2 25 22 - 30 mmol/L INTERFACE SYSTEM CALCIUM 4.9(AA) 8.6 - 10.2 mg/dL INTERFACE SYSTEM Comment: Results called to 03/06/2005 1:29 PM at [facility] and read back verified. Results confirmed by 2nd methodology. 03/06/2005 12:3 1 PM CDT us Tomi Fox MD CHEMISTRY ORDERABLES Final Result INTERFACE SYSTEM Refer to clinic/hospital department * (ABNORMAL) CBC WITH DIFFERENTIAL (03/06/2005 8:56 AM CDT) NEUTROPHIL ABSOLUTE 10.68(H) 1.90 - 7.00 K/uL INTERFACE SYSTEM LYMPHOCYTE ABSOLUTE 0.72 0.70 - 4.50 K/uL INTERFACE SYSTEM MONOCYTE ABSOLUTE 0.48 0.10 - 1.30 K/uL INTERFACE SYSTEM EOSINOPHIL ABSOLUTE 0.12 0.00 - 0.70 K/uL INTERFACE SYSTEM BASOPHILS ABSOLUTE 0.00 0.00 - 0.20 K/uL INTERFACE SYSTEM NEUTROPHILS, SEG 89(H) 45 - 70 % INT ERFACE SYSTEM LYMPHOCYTES 6(L) 16 - 45 % INTERFAC E SYSTEM MONOCYTES 4 3 - 13 % INTERFACE SYSTEM EOSINOPHILS 1 0 - 7 % INTERFAC E SYSTEM BASOPHILS 0 0 - 2 % INTERFACE SYSTEM PLATELET EST. Slt. Decreased( A) Normal INTERFACE SYSTEM ANISOCYTOSIS Slight INTERFA CE SYSTEM POIKILOCYTES Slight INTERFA CE SYSTEM MICROCYTES Slight INTERFACE SYSTEM MACROCYTES Slight INTERFACE SYSTEM POLYCHROMASIA Slight INTERF MARTHA SYSTEM REVIEWED ON SMEAR Plt OK by Smear Rev. INTERFACE SYSTEM 03/06/2005 8:56 AM CDT us Laz Vargas MD HEMATOLOGY ORDERABLES Fi nal Result Performing Organization Address [facility] de Phone Number INTERFACE SYSTEM Refer to clinic/hospital department * (ABNORMAL) CBC WITH DIFFERENTIAL (03/06/2005 8:56 AM CDT) WBC 12.0(H) 4.0 - 9.8 K/uL INTERFACE SYSTEM RBC 2.53(L) 3.90 - 4.90 M/uL INTERFACE SYSTEM HEMOGLOBIN 8.0(L) 11.8 - 14.8 g/dL INTERFACE SYSTEM HEMATOCRIT 24.5(L) 35.5 - 44.0 % INTERFACE SYSTEM MCV 96.8 82.0 - 99.0 fL INTERFACE SYSTEM MCH 31.6 27.2 - 32.6 pg INTERFACE SYSTEM MCHC 32.7 31.5 - 35.5 % INTERFACE SYSTEM RDW 16.1(H) 11.5 - 14.5 % INTERFACE SYSTEM RDW-STDEV 56.1(H) 37.1 - 48.7 fL INTERFACE SYSTEM PLATELETS 96(L) 140 - 350 K/uL INTERFACE SYSTEM Comment:Platelets verified b y smear review. MPV 10.7 9.3 - 12.4 fL INTERFACE SYSTEM 03/06/2005 8:56 AM CDT us Laz Vargas MD HEMATOLOGY ORDERABLES Fi nal Result Performing Organization Address City/[facility] de Phone Number INTERFACE SYSTEM Refer to clinic/hospital department * (ABNORMAL) KLEIHAUER-BETKE PREP (03/06/2005 8:56 AM CDT) MINERVAHAUER-BETKE PREP 0.10(H) <=0.00 % INTERFACE SYSTEM RHIG DOSE GUIDE INTE RFACE SYSTEM Comment: Indicative of approximately 5 mL /maternal hemorrhage. If patient is Rh negative, recommended dose of RhIg = 1 vial. 03/06/2005 8:56 AM CDT us Laz Vargas MD HEMATOLOGY ORDERABLES Fi nal Result INTERFACE SYSTEM Refer to clinic/hospital department * (ABNORMAL) DIC PROFILE (03/06/2005 8:56 AM CDT) PROTIME 15.5 12.9 - 15.7 Seconds INTERFACE SYSTEM INR 1.1 0.9 - 1.1 INTERFACE SYSTEM Comment: INR Therapeutic Range: Adult: 2.0 - 3.0 for pulmonary embolism or prophylaxis against venous thrombosis or systemic embolization. 2.0 - 3.0 for patients with tissue heart valves. 3.0 - 4.5 for patients with mechanical heart valves. Pediatric (12 years and under): 1.5 - 3.0 Although the target range in children is not well established, INR values of 1.5 - 3.0 are recommended for most patients. Higher values have been used in children with prosthetic cardiac valves and hereditary clotting disorders. (<3 days) therapeutic ranges have not been established. PTT 27.1 25.0 - 35.0 Seconds INTERFACE SYSTEM Comment: PTT Therapeutic Range: Heparin Level PTT (seconds) <0.10 units/mL <45 0.10 - 0.30 units/mL 45 - 65 0.30 - 0.70 units/mL* 65 - 106* 0.70 - 1.00 units/mL 106 - 137 *corresponds to therapeutic range for unfractionated heparin FIBRINOGEN 279 194 - 436 mg/dL INTERFACE SYSTEM D-DIMER QUANT >4.00(H) <=0.42 ug/mL FEU INTERFACE SYSTEM Comment: DVT Screen reference range <0.45 ug/mL FEU D. Dimer Interpretation: The reference range is not clearly established in uncomplicated pregnanc ies. Values above the upper limit of the reference range are common from the 31st to 40th week of . High negative predictive values for DVT have been reported with the current methodology, as part of a comprehensive medical examination, including risk stratification. 03/06/2005 8:56 AM CDT us Laz Vargas MD HEMATOLOGY ORDERABLES Fi nal Result Performing Organization Address [facility] Phone Number INTERFACE SYSTEM Refer to clinic/hospital department * (ABNORMAL) BLOOD GAS CORD VENOUS (03/06/2005 8:09 AM CDT) PH CORD VENOUS 7.39 7.23 - 7.46 INTERFACE SYSTEM Comment:baby B PCO2 CORD VENOUS 49 28 - 57 mm Hg INTERFACE SYSTEM PO2 CORD VENOUS 28 15 - 42 mm Hg INTERFACE SYSTEM O2 SAT EST CORD VENOUS 50 14 - 75 % INTERFACE SYSTEM HCO3 CORD VENOUS 29(H) 17 - 25 mmol/L INTERFACE SYSTEM BASE EXCESS CORD VENOUS 3.0(H) -5.8 - 0.7 mmol/L INTERFACE SYSTEM HEMOGLOBIN CORD VENOUS 14.0(L) 14.5 - 22.5 g/dL INTERFACE SYSTEM Comment:HGB Result delayed d ue to 865 problems. 03/06/2005 8:09 AM CDT us Laz Vargas MD ABG ORDERABLES Final Re sult Performing Organization Address [facility] Phone Number INTERFACE SYSTEM Refer to clinic/hospital department * (ABNORMAL) BLOOD GAS CORD ARTERIAL (03/06/2005 8:09 AM CDT) PH CORD ARTERIAL 7.35 7.14 - 7.40 INTERFACE SYSTEM PCO2 CORD ARTERIAL 59 32 - 69 mm Hg INTERFACE SYSTEM PO2 CORD ARTERIAL 18 8 - 33 mm Hg INTERFACE SYSTEM O2 SAT EST CORD ARTERIAL 23 5 - 59 % INTERFACE SYSTEM HCO3 CORD ARTERIAL 32(H) 16 - 27 mmol/L INTERFACE SYSTEM BASE EXCESS CORD ARTERIAL 4.3(H) -7.6 - 1.3 mmol/L INTERFACE SYSTEM HEMOGLOBIN CORD ARTERIAL 13.9(L) 14.5 - 22.5 g/dL INTERFACE SYSTEM Comment:BABY B 03/06/2005 8:09 AM CDT us Laz Vargas MD ABG ORDERABLES Final Re sult Performing Organization Address [facility]/State/ZIP Co de Phone Number INTERFACE SYSTEM Refer to clinic/hospital department * (ABNORMAL) CBC WITH DIFFERENTIAL (03/06/2005 5:36 AM CDT) NEUTROPHIL ABSOLUTE 8.93(H) 1.90 - 7.00 K/uL INTERFACE SYSTEM LYMPHOCYTE ABSOLUTE 1.26 0.70 - 4.50 K/uL INTERFACE SYSTEM MONOCYTE ABSOLUTE 0.32 0.10 - 1.30 K/uL INTERFACE SYSTEM EOSINOPHIL ABSOLUTE 0.00 0.00 - 0.70 K/uL INTERFACE SYSTEM BASOPHILS ABSOLUTE 0.00 0.00 - 0.20 K/uL INTERFACE SYSTEM NEUTROPHILS, SEG 85(H) 45 - 70 % INT ERFACE SYSTEM LYMPHOCYTES 12(L) 16 - 45 % INTERFAC E SYSTEM MONOCYTES 3 3 - 13 % INTERFACE SYSTEM EOSINOPHILS 0 0 - 7 % INTERFAC E SYSTEM BASOPHILS 0 0 - 2 % INTERFACE SYSTEM PLATELET EST. Slt. Decreased( A) Normal INTERFACE SYSTEM ANISOCYTOSIS Slight INTERFA CE SYSTEM POIKILOCYTES Slight INTERFA CE SYSTEM POLYCHROMASIA Slight INTERF MARTHA SYSTEM 03/06/2005 5:36 AM CDT us Laz Vargas MD HEMATOLOGY ORDERABLES Fi nal Result Performing Organization Address City/[facility] Co de Phone Number INTERFACE SYSTEM Refer to clinic/hospital department * (ABNORMAL) CBC WITH DIFFERENTIAL (03/06/2005 5:36 AM CDT) WBC 10.5(H) 4.0 - 9.8 K/uL INTERFACE SYSTEM RBC 3.59(L) 3.90 - 4.90 M/uL INTERFACE SYSTEM HEMOGLOBIN 11.8 11.8 - 14.8 g/dL INTERFACE SYSTEM HEMATOCRIT 35.2(L) 35.5 - 44.0 % INTERFACE SYSTEM MCV 98.1 82.0 - 99.0 fL INTERFACE SYSTEM MCH 32.9(H) 27.2 - 32.6 pg INTERFACE SYSTEM MCHC 33.5 31.5 - 35.5 % INTERFACE SYSTEM RDW 15.7(H) 11.5 - 14.5 % INTERFACE SYSTEM RDW-STDEV 56.5(H) 37.1 - 48.7 fL INTERFACE SYSTEM PLATELETS 128(L) 140 - 350 K/uL INTERFACE SYSTEM MPV 10.9 9.3 - 12.4 fL INTERFACE SYSTEM 03/06/2005 5:36 AM CDT Laz Vargas MD HEMATOLOGY ORDERABLES Fi nal Result Performing Organization Address [facility] Phone Number INTERFACE SYSTEM Refer to clinic/hospital department * PT AND APTT (03/06/2005 5:36 AM CDT) PROTIME 13.1 12.9 - 15.7 Seconds INTERFACE SYSTEM INR 0.9 0.9 - 1.1 INTERFACE SYSTEM Comment: INR Therapeutic Range: Adult: 2.0 - 3.0 for pulmonary embolism or prophylaxis against venous thrombosis or systemic embolization. 2.0 - 3.0 for patients with tissue heart valves. 3.0 - 4.5 for patients with mechanical heart valves. Pediatric (12 years and under): 1.5 - 3.0 Although the target range in children is not well established, INR values of 1.5 - 3.0 are recommended for most patients. Higher values have been used in children with prosthetic cardiac valves and hereditary clotting disorders. (<3 days) therapeutic ranges have not been established. PTT 28.7 25.0 - 35.0 Seconds INTERFACE SYSTEM Comment: PTT Therapeutic Range: Heparin Level PTT (seconds) <0.10 units/mL <45 0.10 - 0.30 units/mL 45 - 65 0.30 - 0.70 units/mL* 65 - 106* 0.70 - 1.00 units/mL 106 - 137 *corresponds to therapeutic range for unfractionated heparin 03/06/2005 5:36 AM CDT us Laz Vargas MD HEMATOLOGY ORDERABLES Fi nal Result Performing Organization Address City/[facility] Co de Phone Number INTERFACE SYSTEM Refer to clinic/hospital department * TSH (03/06/2005 5:36 AM CDT) TSH 0.73 0.27 - 4.20 uU/mL INTERFACE SYSTEM 03/06/2005 5:36 AM CDT Laz Vargas MD CHEMISTRY ORDERABLES Fin al Result Performing Organization Address [facility] Phone Number INTERFACE SYSTEM Refer to clinic/hospital department * (ABNORMAL) COMPREHENSIVE METABOLIC PANEL (03/06/2005 5:36 AM CDT) GLUCOSE 90 65 - 109 mg/dL INTERFACE SYSTEM CREATININE 0.6 0.4 - 1.2 mg/dL INTERFACE SYSTEM AST 67(H) 12 - 32 U/L INTERFACE SYSTEM ALKALINE PHOSPHATASE 134(H) 35 - 104 U/L INTERFACE SYSTEM BUN 7 6 - 20 mg/dL INTERFACE SYSTEM BILIRUBIN TOTAL 0.4 0.2 - 1.0 mg/dL INTERFACE SYSTEM ALBUMIN 3.2(L) 3.4 - 4.8 g/dL INTERFACE SYSTEM TOTAL PROTEIN 6.3 6.3 - 8.6 g/dL INTERFACE SYSTEM ALT 166(H) 0 - 31 U/L INTERFACE SYSTEM SODIUM 139 135 - 145 mmol/L INTERFACE SYSTEM POTASSIUM 3.9 3.5 - 4.9 mmol/L INTERFACE SYSTEM CHLORIDE 103 96 - 108 mmol/L INTERFACE SYSTEM CO2 29 22 - 30 mmol/L INTERFACE SYSTEM CALCIUM 6.6(L) 8.6 - 10.2 mg/dL INTERFACE SYSTEM 03/06/2005 5:36 AM CDT us Laz Vargas MD CHEMISTRY ORDERABLES Fin al Result Performing Organization Address [facility] Phone Number INTERFACE SYSTEM Refer to clinic/hospital department * (ABNORMAL) CREATININE CLEARANCE (03/05/2005 6:24 AM CDT) CREATININE CLEARANCE 178(H) 75 - 125 mL/min/1.7 sq meter INTERFACE SYSTEM Comment:Creatinine Clearance result is not corrected for body surface area. 03/05/2005 6:24 AM CDT us Laz Vargas MD URINE ORDERABLES Final R esult Performing Organization Address [facility] Phone Number INTERFACE SYSTEM Refer to clinic/hospital department * (ABNORMAL) PROTEIN, 24 HR URINE (03/05/2005 6:24 AM CDT) PROTEIN CONCENTRATION <6.0 mg/dL INTERFACE SYSTEM PROTEIN TOTAL, 24 HR URINE <0.22(H) 0.00 - 0.15 g/24 hrs INTERFACE SYSTEM 03/05/2005 6:24 AM CDT Laz Vargas MD URINE ORDERABLES Final R esult Performing Organization Address [facility] Phone Number INTERFACE SYSTEM Refer to clinic/hospital department * CREATININE, 24 HR URINE (03/05/2005 6:24 AM CDT) START DATE 24 HR UR 1: [id number] :[id number] :0:0 INTERFACE SYSTEM START TIME 24 HR UR 0630 time INTERFACE SYSTEM LENGTH OF COLLECTION 24 23 - 25 hr INTERFACE SYSTEM VOLUME, 24 HR URINE 3650 mL INTERFACE SYSTEM CREATININE, 24 HR URINE 1.3 0.6 - 1.8 g/24 hrs INTERFACE SYSTEM 03/05/2005 6:24 AM CDT Laz Vargas MD URINE ORDERABLES Final R esult Performing Organization Address [facility] Phone Number INTERFACE SYSTEM Refer to clinic/hospital department * CREATININE CLEARANCE, SERUM (03/05/2005 6:24 AM CDT) CREATININE 0.5 0.4 - 1.2 mg/dL INTERFACE SYSTEM 03/05/2005 6:24 AM CDT Laz Vargas MD CHEMISTRY ORDERABLES Fin al Result Performing Organization Address [facility] Phone Number INTERFACE SYSTEM Refer to clinic/hospital department * (ABNORMAL) CBC WITH DIFFERENTIAL (03/05/2005 5:02 AM CDT) NEUTROPHIL ABSOLUTE 10.74(H) 1.90 - 7.00 K/uL INTERFACE SYSTEM LYMPHOCYTE ABSOLUTE 0.94 0.70 - 4.50 K/uL INTERFACE SYSTEM MONOCYTE ABSOLUTE 0.12 0.10 - 1.30 K/uL INTERFACE SYSTEM EOSINOPHIL ABSOLUTE 0.00 0.00 - 0.70 K/uL INTERFACE SYSTEM BASOPHILS ABSOLUTE 0.00 0.00 - 0.20 K/uL INTERFACE SYSTEM NEUTROPHILS, SEG 91(H) 45 - 70 % INT ERFACE SYSTEM LYMPHOCYTES 8(L) 16 - 45 % INTERFAC E SYSTEM MONOCYTES 1(L) 3 - 13 % INTERFACE SYSTEM EOSINOPHILS 0 0 - 7 % INTERFAC E SYSTEM BASOPHILS 0 0 - 2 % INTERFACE SYSTEM PLATELET EST. Slt. Decreased( A) Normal INTERFACE SYSTEM POIKILOCYTES Slight INTERFA CE SYSTEM 03/05/2005 5:02 AM CDT us Laz Vargas MD HEMATOLOGY ORDERABLES Fi nal Result INTERFACE SYSTEM Refer to clinic/hospital department * (ABNORMAL) CBC WITH DIFFERENTIAL (03/05/2005 5:02 AM CDT) WBC 11.8(H) 4.0 - 9.8 K/uL INTERFACE SYSTEM RBC 3.58(L) 3.90 - 4.90 M/uL INTERFACE SYSTEM HEMOGLOBIN 11.9 11.8 - 14.8 g/dL INTERFACE SYSTEM HEMATOCRIT 34.8(L) 35.5 - 44.0 % INTERFACE SYSTEM MCV 97.2 82.0 - 99.0 fL INTERFACE SYSTEM MCH 33.2(H) 27.2 - 32.6 pg INTERFACE SYSTEM MCHC 34.2 31.5 - 35.5 % INTERFACE SYSTEM RDW 15.3(H) 11.5 - 14.5 % INTERFACE SYSTEM RDW-STDEV 54.1(H) 37.1 - 48.7 fL INTERFACE SYSTEM PLATELETS 101(L) 140 - 350 K/uL INTERFACE SYSTEM MPV 11.3 9.3 - 12.4 fL INTERFACE SYSTEM 03/05/2005 5:02 AM CDT us Laz Vargas MD HEMATOLOGY ORDERABLES Fi nal Result INTERFACE SYSTEM Refer to clinic/hospital department * URIC ACID (03/05/2005 5:02 AM CDT) URIC ACID 5.4 2.3 - 6.6 mg/dL INTERFACE SYSTEM 03/05/2005 5:02 AM CDT Laz Vargas MD CHEMISTRY ORDERABLES Fin al Result Performing Organization Address [facility] Phone Number INTERFACE SYSTEM Refer to clinic/hospital department * (ABNORMAL) LACTATE DEHYDROGENASE (03/05/2005 5:02 AM CDT) LD (LACTATE DEHYDROGENASE) 330(H) 135 - 214 U/L INTERFACE SYSTEM Comment:Slightly hemolyzed. 03/05/2005 5:02 AM CDT us Laz Vargas MD CHEMISTRY ORDERABLES Fin al Result Performing Organization Address [facility] Number INTERFACE SYSTEM Refer to clinic/hospital department * (ABNORMAL) ALT (03/05/2005 5:02 AM CDT) ALT 207(H) 0 - 31 U/L INTERFACE SYSTEM Comment:Slightly hemolyzed. 03/05/2005 5:02 AM CDT us Laz Vargas MD CHEMISTRY ORDERABLES Fin al Result Performing Organization Address [facility] Number INTERFACE SYSTEM Refer to clinic/hospital department * (ABNORMAL) AST (03/05/2005 5:02 AM CDT) AST 107(H) 12 - 32 U/L INTERFACE SYSTEM Comment:Slightly hemolyzed. 03/05/2005 5:02 AM CDT us Laz Vargas MD CHEMISTRY ORDERABLES Fin al Result Performing Organization Address [facility] Phone Number INTERFACE SYSTEM Refer to clinic/hospital department * (ABNORMAL) CBC WITH DIFFERENTIAL (03/04/2005 3:34 PM CDT) NEUTROPHIL ABSOLUTE 9.01(H) 1.90 - 7.00 K/uL INTERFACE SYSTEM LYMPHOCYTE ABSOLUTE 0.89 0.70 - 4.50 K/uL INTERFACE SYSTEM MONOCYTE ABSOLUTE 0.00(L) 0.10 - 1.30 K/uL INTERFACE SYSTEM EOSINOPHIL ABSOLUTE 0.00 0.00 - 0.70 K/uL INTERFACE SYSTEM BASOPHILS ABSOLUTE 0.00 0.00 - 0.20 K/uL INTERFACE SYSTEM NEUTROPHILS, SEG 91(H) 45 - 70 % INT ERFACE SYSTEM LYMPHOCYTES 8(L) 16 - 45 % INTERFAC E SYSTEM MONOCYTES 0(L) 3 - 13 % INTERFACE SYSTEM EOSINOPHILS 0 0 - 7 % INTERFAC E SYSTEM BASOPHILS 0 0 - 2 % INTERFACE SYSTEM ATYPICAL LYMPHOCYTE 1 0 - 5 % INTERFACE SYSTEM PLATELET EST. Slt. Decreased( A) Normal INTERFACE SYSTEM ANISOCYTOSIS Slight INTERFA CE SYSTEM POIKILOCYTES Slight INTERFA CE SYSTEM POLYCHROMASIA Slight INTERF MARTHA SYSTEM HYPOCHROMIA Slight INTERFAC E SYSTEM TEAR DROP CELLS Slight INTE RFACE SYSTEM 03/04/2005 3:34 PM CDT us Laz Vargas MD HEMATOLOGY ORDERABLES Fi nal Result Performing Organization Address [facility] de Phone Number INTERFACE SYSTEM Refer to clinic/hospital department * (ABNORMAL) CBC WITH DIFFERENTIAL (03/04/2005 3:34 PM CDT) WBC 9.9(H) 4.0 - 9.8 K/uL INTERFACE SYSTEM RBC 3.85(L) 3.90 - 4.90 M/uL INTERFACE SYSTEM HEMOGLOBIN 12.5 11.8 - 14.8 g/dL INTERFACE SYSTEM HEMATOCRIT 37.1 35.5 - 44.0 % INTERFACE SYSTEM MCV 96.4 82.0 - 99.0 fL INTERFACE SYSTEM MCH 32.5 27.2 - 32.6 pg INTERFACE SYSTEM MCHC 33.7 31.5 - 35.5 % INTERFACE SYSTEM RDW 15.4(H) 11.5 - 14.5 % INTERFACE SYSTEM RDW-STDEV 53.6(H) 37.1 - 48.7 fL INTERFACE SYSTEM PLATELETS 89(L) 140 - 350 K/uL INTERFACE SYSTEM MPV 11.4 9.3 - 12.4 fL INTERFACE SYSTEM 03/04/2005 3:34 PM CDT Laz Vargas MD HEMATOLOGY ORDERABLES Fi nal Result Performing Organization Address [facility]/ZIP Co de Phone Number INTERFACE SYSTEM Refer to clinic/hospital department * URIC ACID (03/04/2005 3:34 PM CDT) URIC ACID 5.2 2.3 - 6.6 mg/dL INTERFACE SYSTEM 03/04/2005 3:34 PM CDT Laz Vargas MD CHEMISTRY ORDERABLES Fin al Result Performing Organization Address [facility] Phone Number INTERFACE SYSTEM Refer to clinic/hospital department * (ABNORMAL) AST (03/04/2005 3:34 PM CDT) AST 192(H) 12 - 32 U/L INTERFAC E SYSTEM 03/04/2005 3:34 PM CDT Laz Vargas MD CHEMISTRY ORDERABLES Fin al Result Performing Organization Address [facility] Phone Number INTERFACE SYSTEM Refer to clinic/hospital department * (ABNORMAL) LACTATE DEHYDROGENASE (03/04/2005 3:34 PM CDT) LD (LACTATE DEHYDROGENASE) 326(H) 135 - 214 U/L INTERFACE SYSTEM 03/04/2005 3:34 PM CDT Laz Vargas MD CHEMISTRY ORDERABLES Fin al Result Performing Organization Address [facility] Phone Number INTERFACE SYSTEM Refer to clinic/hospital department * (ABNORMAL) DIC PROFILE (03/04/2005 3:34 PM CDT) PROTIME 14.1 12.9 - 15.7 Seconds INTERFACE SYSTEM INR 1.0 0.9 - 1.1 INTERFACE SYSTEM Comment: INR Therapeutic Range: Adult: 2.0 - 3.0 for pulmonary embolism or prophylaxis against venous thrombosis or systemic embolization. 2.0 - 3.0 for patients with tissue heart valves. 3.0 - 4.5 for patients with mechanical heart valves. Pediatric (12 years and under): 1.5 - 3.0 Although the target range in children is not well established, INR values of 1.5 - 3.0 are recommended for most patients. Higher values have been used in children with prosthetic cardiac valves and hereditary clotting disorders. (<3 days) therapeutic ranges have not been established. PTT 38.3(H) 25.0 - 35.0 Seconds INTERFACE SYSTEM Comment: PTT Therapeutic Range: Heparin Level PTT (seconds) <0.10 units/mL <45 0.10 - 0.30 units/mL 45 - 65 0.30 - 0.70 units/mL* 65 - 106* 0.70 - 1.00 units/mL 106 - 137 *corresponds to therapeutic range for unfractionated heparin FIBRINOGEN 643(H) 194 - 436 mg/dL INTERFACE SYSTEM D-DIMER QUANT 3.27(H) <=0.42 ug/mL FEU INTERFACE SYSTEM Comment: DVT Screen reference range <0.45 ug/mL FEU D. Dimer Interpretation: The reference range is not clearly established in uncomplicated pregnanc ies. Values above the upper limit of the reference range are common from the 31st to 40th week of . High negative predictive values for DVT have been reported with the current methodology, as part of a comprehensive medical examination, including risk stratification. 03/04/2005 3:34 PM CDT Laz Vargas MD HEMATOLOGY ORDERABLES Fi nal Result INTERFACE SYSTEM Refer to clinic/hospital department * (ABNORMAL) DIC PROFILE (03/04/2005 9:16 AM CDT) PROTIME 14.3 12.9 - 15.7 Seconds INTERFACE SYSTEM INR 1.0 0.9 - 1.1 INTERFACE SYSTEM Comment: INR Therapeutic Range: Adult: 2.0 - 3.0 for pulmonary embolism or prophylaxis against venous thrombosis or systemic embolization. 2.0 - 3.0 for patients with tissue heart valves. 3.0 - 4.5 for patients with mechanical heart valves. Pediatric (12 years and under): 1.5 - 3.0 Although the target range in children is not well established, INR values of 1.5 - 3.0 are recommended for most patients. Higher values have been used in children with prosthetic cardiac valves and hereditary clotting disorders. (<3 days) therapeutic ranges have not been established. PTT 37.5(H) 25.0 - 35.0 Seconds INTERFACE SYSTEM Comment: PTT Therapeutic Range: Heparin Level PTT (seconds) <0.10 units/mL <45 0.10 - 0.30 units/mL 45 - 65 0.30 - 0.70 units/mL* 65 - 106* 0.70 - 1.00 units/mL 106 - 137 *corresponds to therapeutic range for unfractionated heparin FIBRINOGEN 614(H) 194 - 436 mg/dL INTERFACE SYSTEM D-DIMER QUANT >4.00(H) <=0.42 ug/mL FEU INTERFACE SYSTEM Comment: DVT Screen reference range <0.45 ug/mL FEU D. Dimer Interpretation: The reference range is not clearly established in uncomplicated pregnanc ies. Values above the upper limit of the reference range are common from the 31st to 40th week of . High negative predictive values for DVT have been reported with the current methodology, as part of a comprehensive medical examination, including risk stratification. 03/04/2005 9:16 AM CDT Laz Vargas MD HEMATOLOGY ORDERABLES Fi nal Result INTERFACE SYSTEM Refer to clinic/hospital department * (ABNORMAL) CBC WITH DIFFERENTIAL (03/04/2005 8:54 AM CDT) NEUTROPHILS 88(H) 45 - 70 % INTERFAC E SYSTEM LYMPHOCYTES 7(L) 16 - 45 % INTERFAC E SYSTEM MONOCYTES 4 3 - 13 % INTERFACE SYSTEM EOSINOPHILS 0 0 - 7 % INTERFAC E SYSTEM BASOPHILS 0 0 - 2 % INTERFACE SYSTEM NEUTROPHIL ABSOLUTE 10.09(H) 1.90 - 7.00 K/uL INTERFACE SYSTEM LYMPHOCYTE ABSOLUTE 0.83 0.70 - 4.50 K/uL INTERFACE SYSTEM MONOCYTE ABSOLUTE 0.44 0.10 - 1.30 K/uL INTERFACE SYSTEM EOSINOPHIL ABSOLUTE 0.05 0.00 - 0.70 K/uL INTERFACE SYSTEM BASOPHILS ABSOLUTE 0.02 0.00 - 0.20 K/uL INTERFACE SYSTEM 03/04/2005 8:54 AM CDT Laz Vargas MD HEMATOLOGY ORDERABLES Fi nal Result Performing Organization Address [facility] Phone Number INTERFACE SYSTEM Refer to clinic/hospital department * (ABNORMAL) CBC WITH DIFFERENTIAL (03/04/2005 8:54 AM CDT) WBC 11.4(H) 4.0 - 9.8 K/uL INTERFACE SYSTEM RBC 3.78(L) 3.90 - 4.90 M/uL INTERFACE SYSTEM HEMOGLOBIN 12.4 11.8 - 14.8 g/dL INTERFACE SYSTEM HEMATOCRIT 36.5 35.5 - 44.0 % INTERFACE SYSTEM MCV 96.6 82.0 - 99.0 fL INTERFACE SYSTEM MCH 32.8(H) 27.2 - 32.6 pg INTERFACE SYSTEM MCHC 34.0 31.5 - 35.5 % INTERFACE SYSTEM RDW 15.3(H) 11.5 - 14.5 % INTERFACE SYSTEM RDW-STDEV 53.9(H) 37.1 - 48.7 fL INTERFACE SYSTEM PLATELETS 76(L) 140 - 350 K/uL INTERFACE SYSTEM Comment:Persistent abnormal result MPV 10.7 9.3 - 12.4 fL INTERFACE SYSTEM 03/04/2005 8:54 AM CDT us Laz Vargas MD HEMATOLOGY ORDERABLES Fi nal Result Performing Organization Address [facility] Phone Number INTERFACE SYSTEM Refer to clinic/hospital department * URIC ACID (03/04/2005 8:54 AM CDT) URIC ACID 4.9 2.3 - 6.6 mg/dL INTERFACE SYSTEM 03/04/2005 8:54 AM CDT Laz Vargas MD CHEMISTRY ORDERABLES Fin al Result Performing Organization Address [facility] Phone Number INTERFACE SYSTEM Refer to clinic/hospital department * (ABNORMAL) ALKALINE PHOSPHATASE (03/04/2005 8:54 AM CDT) ALKALINE PHOSPHATASE 136(H) 35 - 104 U/L INTERFACE SYSTEM 03/04/2005 8:54 AM CDT us Laz Vargas MD CHEMISTRY ORDERABLES Fin al Result Performing Organization Address [place]/[facility] Phone Number INTERFACE SYSTEM Refer to clinic/hospital department * (ABNORMAL) LACTATE DEHYDROGENASE (03/04/2005 8:54 AM CDT) LD (LACTATE DEHYDROGENASE) 314(H) 135 - 214 U/L INTERFACE SYSTEM 03/04/2005 8:54 AM CDT us Laz Vargas MD CHEMISTRY ORDERABLES Fin al Result Performing Organization Address [place]/[facility] Phone Number INTERFACE SYSTEM Refer to clinic/hospital department * (ABNORMAL) ALT (03/04/2005 8:54 AM CDT) ALT 284(H) 0 - 31 U/L INTERFACE SYSTEM 03/04/2005 8:54 AM CDT us Laz Vargsa MD CHEMISTRY ORDERABLES Fin al Result Performing Organization Address [facility] Phone Number INTERFACE SYSTEM Refer to clinic/hospital department * (ABNORMAL) AST (03/04/2005 8:54 AM CDT) AST 235(H) 12 - 32 U/L INTERFAC E SYSTEM 03/04/2005 8:54 AM CDT us Laz Vargas MD CHEMISTRY ORDERABLES Fin al Result Performing Organization Address [facility] de Phone Number INTERFACE SYSTEM Refer to clinic/hospital department * (ABNORMAL) CBC WITH DIFFERENTIAL (03/04/2005 6:03 AM CDT) NEUTROPHILS 75(H) 45 - 70 % INTERFAC E SYSTEM LYMPHOCYTES 17 16 - 45 % INTERFAC E SYSTEM MONOCYTES 6 3 - 13 % INTERFACE SYSTEM EOSINOPHILS 1 0 - 7 % INTERFAC E SYSTEM BASOPHILS 0 0 - 2 % INTERFACE SYSTEM NEUTROPHIL ABSOLUTE 7.59(H) 1.90 - 7.00 K/uL INTERFACE SYSTEM LYMPHOCYTE ABSOLUTE 1.71 0.70 - 4.50 K/uL INTERFACE SYSTEM MONOCYTE ABSOLUTE 0.65 0.10 - 1.30 K/uL INTERFACE SYSTEM EOSINOPHIL ABSOLUTE 0.12 0.00 - 0.70 K/uL INTERFACE SYSTEM BASOPHILS ABSOLUTE 0.01 0.00 - 0.20 K/uL INTERFACE SYSTEM 03/04/2005 6:03 AM CDT us Laz Vargas MD HEMATOLOGY ORDERABLES Fi nal Result Performing Organization Address [facility] Phone Number INTERFACE SYSTEM Refer to clinic/hospital department * (ABNORMAL) CBC WITH DIFFERENTIAL (03/04/2005 6:03 AM CDT) WBC 10.1(H) 4.0 - 9.8 K/uL INTERFACE SYSTEM RBC 3.77(L) 3.90 - 4.90 M/uL INTERFACE SYSTEM HEMOGLOBIN 12.3 11.8 - 14.8 g/dL INTERFACE SYSTEM HEMATOCRIT 36.1 35.5 - 44.0 % INTERFACE SYSTEM MCV 95.8 82.0 - 99.0 fL INTERFACE SYSTEM MCH 32.6 27.2 - 32.6 pg INTERFACE SYSTEM MCHC 34.1 31.5 - 35.5 % INTERFACE SYSTEM RDW 15.3(H) 11.5 - 14.5 % INTERFACE SYSTEM RDW-STDEV 53.3(H) 37.1 - 48.7 fL INTERFACE SYSTEM PLATELETS 80(L) 140 - 350 K/uL INTERFACE SYSTEM Comment:Persistent abnormal result MPV 10.9 9.3 - 12.4 fL INTERFACE SYSTEM 03/04/2005 6:03 AM CDT us Laz Vargas MD HEMATOLOGY ORDERABLES Fi nal Result Performing Organization Address [facility] Phone Number INTERFACE SYSTEM Refer to clinic/hospital department * (ABNORMAL) ALKALINE PHOSPHATASE (03/04/2005 6:03 AM CDT) ALKALINE PHOSPHATASE 132(H) 35 - 104 U/L INTERFACE SYSTEM 03/04/2005 6:03 AM CDT us Laz Vargas MD CHEMISTRY ORDERABLES Fin al Result Performing Organization Address [facility] Phone Number INTERFACE SYSTEM Refer to clinic/hospital department * URIC ACID (03/04/2005 6:03 AM CDT) URIC ACID 4.7 2.3 - 6.6 mg/dL INTERFACE SYSTEM 03/04/2005 6:03 AM CDT us Laz Vargas MD CHEMISTRY ORDERABLES Fin al Result Performing Organization Address [facility] Phone Number INTERFACE SYSTEM Refer to clinic/hospital department * (ABNORMAL) LACTATE DEHYDROGENASE (03/04/2005 6:03 AM CDT) LD (LACTATE DEHYDROGENASE) 324(H) 135 - 214 U/L INTERFACE SYSTEM 03/04/2005 6:03 AM CDT us Laz Vargas MD CHEMISTRY ORDERABLES Fin al Result Performing Organization Address [facility] Phone Number INTERFACE SYSTEM Refer to clinic/hospital department * (ABNORMAL) ALT (03/04/2005 6:03 AM CDT) ALT 281(H) 0 - 31 U/L INTERFACE SYSTEM 03/04/2005 6:03 AM CDT us Laz Vargas MD CHEMISTRY ORDERABLES Fin al Result Performing Organization Address [facility] Phone Number INTERFACE SYSTEM Refer to clinic/hospital department * (ABNORMAL) AST (03/04/2005 6:03 AM CDT) AST 236(H) 12 - 32 U/L INTERFAC E SYSTEM 03/04/2005 6:03 AM CDT us Laz Vargas MD CHEMISTRY ORDERABLES Fin al Result Performing Organization Address [facility] Phone Number INTERFACE SYSTEM Refer to clinic/hospital department * (ABNORMAL) COMPREHENSIVE METABOLIC PANEL (03/04/2005 1:21 AM CDT) GLUCOSE 141(H) 65 - 109 mg/dL INTERFACE SYSTEM CREATININE 0.6 0.4 - 1.2 mg/dL INTERFACE SYSTEM CALCIUM 8.4(L) 8.6 - 10.2 mg/dL INTERFACE SYSTEM AST 220(H) 12 - 32 U/L INTERFACE SYSTEM ALKALINE PHOSPHATASE 136(H) 35 - 104 U/L INTERFACE SYSTEM BUN 6 6 - 20 mg/dL INTERFACE SYSTEM BILIRUBIN TOTAL 0.6 0.2 - 1.0 mg/dL INTERFACE SYSTEM ALBUMIN 3.0(L) 3.4 - 4.8 g/dL INTERFACE SYSTEM TOTAL PROTEIN 6.4 6.3 - 8.6 g/dL INTERFACE SYSTEM ALT 269(H) 0 - 31 U/L INTERFACE SYSTEM SODIUM 136 135 - 145 mmol/L INTERFACE SYSTEM POTASSIUM 3.9 3.5 - 4.9 mmol/L INTERFACE SYSTEM CHLORIDE 102 96 - 108 mmol/L INTERFACE SYSTEM CO2 26 22 - 30 mmol/L INTERFACE SYSTEM 03/04/2005 1:21 AM CDT us Laz Vargas MD CHEMISTRY ORDERABLES Fin al Result Performing Organization Address [facility] Phone Number INTERFACE SYSTEM Refer to clinic/hospital department * (ABNORMAL) LACTATE DEHYDROGENASE (03/04/2005 1:20 AM CDT) LD (LACTATE DEHYDROGENASE) 322(H) 135 - 214 U/L INTERFACE SYSTEM 03/04/2005 1:20 AM CDT us Laz Vargas MD CHEMISTRY ORDERABLES Fin al Result Performing Organization Address [facility] Phone Number INTERFACE SYSTEM Refer to clinic/hospital department * URIC ACID (03/04/2005 1:20 AM CDT) URIC ACID 4.7 2.3 - 6.6 mg/dL INTERFACE SYSTEM 03/04/2005 1:20 AM CDT us Laz Vargas MD CHEMISTRY ORDERABLES Fin al Result Performing Organization Address [facility] Phone Number INTERFACE SYSTEM Refer to clinic/hospital department * (ABNORMAL) AST (03/04/2005 1:20 AM CDT) AST 221(H) 12 - 32 U/L INTERFAC E SYSTEM 03/04/2005 1:20 AM CDT Laz Vargas MD CHEMISTRY ORDERABLES Fin al Result Performing Organization Address [facility] Phone Number INTERFACE SYSTEM Refer to clinic/hospital department * (ABNORMAL) CBC WITH DIFFERENTIAL (03/03/2005 11:46 PM CDT) NEUTROPHILS 73(H) 45 - 70 % INTERFAC E SYSTEM LYMPHOCYTES 20 16 - 45 % INTERFAC E SYSTEM MONOCYTES 7 3 - 13 % INTERFACE SYSTEM EOSINOPHILS 1 0 - 7 % INTERFAC E SYSTEM BASOPHILS 0 0 - 2 % INTERFACE SYSTEM NEUTROPHIL ABSOLUTE 8.76(H) 1.90 - 7.00 K/uL INTERFACE SYSTEM LYMPHOCYTE ABSOLUTE 2.35 0.70 - 4.50 K/uL INTERFACE SYSTEM MONOCYTE ABSOLUTE 0.81 0.10 - 1.30 K/uL INTERFACE SYSTEM EOSINOPHIL ABSOLUTE 0.15 0.00 - 0.70 K/uL INTERFACE SYSTEM BASOPHILS ABSOLUTE 0.01 0.00 - 0.20 K/uL INTERFACE SYSTEM 03/03/2005 11:4 6 PM CDT us Laz Vargas MD HEMATOLOGY ORDERABLES Fi nal Result Performing Organization Address [facility] Phone Number INTERFACE SYSTEM Refer to clinic/hospital department * (ABNORMAL) CBC WITH DIFFERENTIAL (03/03/2005 11:46 PM CDT) WBC 12.1(H) 4.0 - 9.8 K/uL INTERFACE SYSTEM RBC 3.96 3.90 - 4.90 M/uL INTERFACE SYSTEM HEMOGLOBIN 12.9 11.8 - 14.8 g/dL INTERFACE SYSTEM HEMATOCRIT 38.2 35.5 - 44.0 % INTERFACE SYSTEM MCV 96.5 82.0 - 99.0 fL INTERFACE SYSTEM MCH 32.6 27.2 - 32.6 pg INTERFACE SYSTEM MCHC 33.8 31.5 - 35.5 % INTERFACE SYSTEM RDW 15.1(H) 11.5 - 14.5 % INTERFACE SYSTEM RDW-STDEV 52.8(H) 37.1 - 48.7 fL INTERFACE SYSTEM PLATELETS 89(L) 140 - 350 K/uL INTERFACE SYSTEM Comment:Platelets verified b y smear review. MPV 11.0 9.3 - 12.4 fL INTERFACE SYSTEM 03/03/2005 11:4 6 PM CDT us Laz Vargas MD HEMATOLOGY ORDERABLES Fi nal Result Performing Organization Address [facility] de Phone Number INTERFACE SYSTEM Refer to clinic/hospital department * (ABNORMAL) URINALYSIS WITH MICROSCOPIC (03/03/2005 11:37 PM CDT) COLOR UA Yellow INTERFACE SYSTEM CLARITY UA Clear Clear INTERFACE SYSTEM SPECIFIC GRAVITY UA 1.010 1.001 - 1.035 INTERFACE SYSTEM PH UA 6.0 5.0 - 8.0 INTERFACE SYSTEM LEUKOCYTE ESTERASE UA Negative Negative INTERFACE SYSTEM NITRITE UA Negative Negative INTERFACE SYSTEM PROTEIN UA Negative Negative INTERFACE SYSTEM GLUCOSE UA Negative Negative INTERFACE SYSTEM KETONES UA Negative Negative INTERFACE SYSTEM UROBILINOGEN UA <1 <1 EU INTE RFACE SYSTEM BILIRUBIN UA Negative Negative INTERFA CE SYSTEM BLOOD UA Trace(A) Negative INTERFACE SYSTEM WBC UA <1 0 - 5 /HPF INTERFACE SYSTEM RBC UA 1 0 - 4 /HPF INTERFACE SYSTEM EPITHELIAL CELLS, URINE 2-5 /HPF INTERFACE SYSTEM 03/03/2005 11:3 7 PM CDT us Laz Vargas MD URINE ORDERABLES Final R esult Performing Organization Address [facility] Phone Number INTERFACE SYSTEM Refer to clinic/hospital department documented in this encounter Visit Diagnoses Diagnosis Severe pre-eclampsia, with delivery- Primary documented in this encounter Care Teams Instrument Lens Generator Relationship Specialty Start Date End Date Chester Renee DO [address] [facility] [address] [place] [id number] PCP - General Internal Medicine 12/20/20 documented as of this encounter
--- OUTSIDE RECORDS SUMMARY | 2025-03-13 13:19 | XMS_ITS | Patient Health Record ---
Author Organization [facility] Address [address] [place] [address] Care Team Providers Care Enrichment Assistant Name Role Phone Joon CASIANO, Marcos Primary Care Provider Unavailab Presley Shea Unavailable [phone] Dewayne Caicedo Unavailable [phone] Migration, Provider Unavailable Unavailable Allergies No Known Allergies Reason For Referral No Information Medications Medication SIG (Take, Route, Frequency, Duration) Notes Start Date End Date Status LORazepam 0.5 MG 1 tablet Oral Once a day for 30 days 12/16/2024 Active Probiotic *Pick strength-f orm from [facility] for eRX* 02/08/2024 Active Auvelity 45-105 MG 1 tablet Oral twice a day for 30 days *Reorder from [facility] for eRx and Interaction Alerts* Active lamoTRIgine 25 MG 3 tablets Oral TWICE A DAY for 90 days Active Nystatin-Triamcinolon e 181838-5.1 UNIT/GM External 02/08/2024 Active Atorvastatin Calcium 20 MG Oral 02/08/2024 Active Vagifem 10 mcg Vaginal 02/08/2024 Acti ve Belsomra 20 MG TAKE 1 TABLET AT BEDTIME Orally Once a day for 90 days 12/16/2024 Active ESTRADIOL 0.5 MG/0.5 GRAM (0.1 %) TRANSDERMAL GEL PACKET *Reorder from [facility] for eRx and Interaction Alerts* 02/08/2024 Active Propranolol HCl 20 MG Oral 02/08/2024 Active Immunizations Vaccine Route Administration Date Status Comme nts Hep B, adult dosage Unknown 07/22/2016 Administered Influenza virus vaccine, quadrivalent (IIV4), split virus, 0.25 mL dosage Unknown 08/31/2018 Administered Pfizer Biontech Covid-19 Vac cine 2nd dose Unknown 02/11/2021 Administered Pfizer Biontech Covid-19 Vac cine 2nd dose Unknown 03/04/2021 Administered Pfizer Biontech Covid-19 Vac cine 2nd dose Unknown 12/10/2021 Administered Tdap Unknown 11/30/2016 Administered Tdap Unknown 07/12/2017 Administered Social History Tobacco Use: Social History Observation Description Date Details (start date - stop date) Current Smoker NA - NA Sex Assigned At : Social History Observation Description Sex Assigned At Female Tobacco Control (Standard) Question Answer Notes Tobacco use: Current smoker Problems Problem Type SNOMED Code ICD Code Onset Dates Problem Status W/U Status Risk Notes Problem Mild recurrent major depression (12186476) Major depressive disorder, recurrent, mild (F33.0) Active confirmed Problem Generalized anxiety disorder (46331183) Generalized anxiety disorder (F41.1) Active confirmed Problem Restless legs syndrome (96614036) Restless legs syndrome (G25.81) Active confirmed Problem Insomnia (890271690) Other insomnia (G47.09) Active confirmed Vital Signs Heart Rate 84 /min 12/16/2024 Blood pressure diastolic 70 mm Hg 12/16/2024 Height-cm 165.10 cm 12/16/2024 Weight-kg 94.35 kg 12/16/2024 Height 65.00 in 12/16/2024 Blood pressure systolic 111 mm Hg 12/16/2024 Weight 208 lbs 12/16/2024 BMI 34.61 kg/m2 12/16/2024 Encounters Encounter Location Date Provider Diagnosis [facility] [address] [address] 04/13/2024 Provider Migration Major depressive disorder, recurrent, mild F33.0 [facility] [address] [facility] [address] [place] [address] 05/09/2024 Presley Han [facility] [employer] [facility] [address] [place] [address] 08/09/2024 Presley Han Generalized anxiety disorder F41.1 ; Other insomnia G47.09 ; Restless legs syndrome G25.81 and Major depressive disorder, recurrent, mild F33.0 [facility], [facility] [address] [place] [address] 09/22/2024 Presley Han Generalized anxiety disorder F41.1 ; Other insomnia G47.09 ; Restless legs syndrome G25.81 and Major depressive disorder, recurrent, mild F33.0 [facility], [facility] [address] [place] [address] 12/16/2024 Presley Han Generalized anxiety disorder F41.1 ; Other insomnia G47.09 ; Restless legs syndrome G25.81 and Major depressive disorder, recurrent, mild F33.0 [facility], [facility] [address] [place] [address] 03/18/2024 Provider Migration [facility], [facility] [address] [place] [address] 03/27/2024 Provider Migration [facility], [facility] [address] [place] [address] 04/12/2024 Provider Migration [facility], [facility] [address] [place] [address] 04/16/2024 Provider Migration [facility], [facility] [address] [place] [address] 04/17/2024 Provider Migration [facility], [facility] [address] [place] [address] 07/29/2024 Presley Han Generalized anxiety disorder F41.1 [facility], [facility] [address] [place] [address] 01/24/2025 Presley Brighta [facility], [facility] [address] [place] [address] 10/26/2024 Dewayne Caicedo Generalized anxiety disorder F41.1 [facility], [facility] [address] [place] [address] 02/19/2025 Presley Pandaoza Major depressive disorder, recurrent, mild F33.0 [facility], [facility] [address] [place] [address] 02/22/2025 Presley Brighta Major depressive disorder, recurrent, mild F33.0 [facility], [facility] [address] [place] [address] 02/22/2025 Presley Han Assessments Encounter Date Diagnosis (ICD Code) Assessment Notes Treatment Notes Treatment Clinical Notes Section Notes 04/13/2024 Major depressive disorder, recurrent, mild (ICD-10 - F33.0) 07/29/2024 Generalized anxiety disorder (ICD-10 - F41.1) 08/09/2024 Generalized anxiety disorder (ICD-10 - F41.1) cont lorazepam 0.5mg daily prn 1. Anxiety: - Patient reports increased anxiety due to home stressors. - Continue Lamotrigine 50mg twice a day, Auvelity twice a day, and Lorazepam daily as needed. Plan: - Consider increasing Lamotrigine to 75mg twice a day if anxiety persists or worsens. - Encourage the patient to contact the therapist for additional support. 2. Sleep disturbance: - Patient reports poor sleep quality, possibly related to CPAP issues and restless leg syndrome. Plan: - Encourage the patient to follow up with the sleep center for a different CPAP setup. - Address restless leg syndrome by considering a referral to a specialist. 3. Depression: - Patient reports functioning and taking care of herself despite anxiety and fatigue. - Continue current medication regimen (Lamotrigine, Auvelity). Plan: - Monitor for any changes in mood or functioning. Follow up in six weeks to assess the patient's progress and make any necessary adjustments to the treatment plan. 08/09/2024 Other insomnia (ICD-10 - G47.09) uses cpap, cont belsomra 20mg at hs 1. Anxiety: - Patient reports increased anxiety due to home stressors. - Continue Lamotrigine 50mg twice a day, Auvelity twice a day, and Lorazepam daily as needed. Plan: - Consider increasing Lamotrigine to 75mg twice a day if anxiety persists or worsens. - Encourage the patient to contact the therapist for additional support. 2. Sleep disturbance: - Patient reports poor sleep quality, possibly related to CPAP issues and restless leg syndrome. Plan: - Encourage the patient to follow up with the sleep center for a different CPAP setup. - Address restless leg syndrome by considering a referral to a specialist. 3. Depression: - Patient reports functioning and taking care of herself despite anxiety and fatigue. - Continue current medication regimen (Lamotrigine, Auvelity). Plan: - Monitor for any changes in mood or functioning. Follow up in six weeks to assess the patient's progress and make any necessary adjustments to the treatment plan. 09/22/2024 Generalized anxiety disorder (ICD-10 - F41.1) cont lorazepam 0.5mg daily prn 1. COVID-19 infection: - Patient recently tested positive for COVID-19 and experienced significant symptoms. She is currently recovering and reports feeling better last weekend. Plan: - Continue to monitor symptoms and encourage the patient to rest and stay hydrated. - Advise the patient to follow up if symptoms worsen or new symptoms develop. 2. Sleep disturbances and CPAP use: - Patient has a history of sleep disturbances and is using a CPAP machine. - Recently saw a sleep specialist who recommended checking iron levels, anemia, and adjusting CPAP pressure. - Patient has a new mask with a swiveling hose and reports improved compliance. Plan: - Encourage the patient to complete the recommended blood tests. - Follow up with the sleep specialist for further evaluation and management. - Continue using the CPAP machine as prescribed. 3. Restless legs syndrome: - Patient reports experiencing restless legs and waking up tangled in CPAP cords. Plan: - Monitor symptoms and consider further evaluation or treatment if symptoms worsen or impact sleep quality. 4. Anxiety and depression: - Patient is currently on lamotrigine 75 mg twice a day and Auvelity twice a day for depression. - Reports improvement in anxiety symptoms. - Takes Belsomra and lorazepam as needed for sleep. Plan: - Continue current medications and monitor for any changes in mood or anxiety levels. - Encourage the patient to follow up if symptoms worsen or new concerns arise. Overall: - Patient is doing well, and no changes to her current medications are needed at this time. - Encourage the patient to follow up as needed for any concerns or changes in her health. 10/26/2024 Generalized anxiety disorder (ICD-10 - F41.1) 12/16/2024 Generalized anxiety disorder (ICD-10 - F41.1) cont lorazepam 0.5mg daily prn 02/19/2025 Major depressive disorder, recurrent, mild (ICD-10 - F33.0) 02/22/2025 Major depressive disorder, recurrent, mild (ICD-10 - F33.0) 09/22/2024 Other insomnia (ICD-10 - G47.09) uses cpap, cont belsomra 20mg at hs 1. COVID-19 infection: - Patient recently tested positive for COVID-19 and experienced significant symptoms. She is currently recovering and reports feeling better last weekend. Plan: - Continue to monitor symptoms and encourage the patient to rest and stay hydrated. - Advise the patient to follow up if symptoms worsen or new symptoms develop. 2. Sleep disturbances and CPAP use: - Patient has a history of sleep disturbances and is using a CPAP machine. - Recently saw a sleep specialist who recommended checking iron levels, anemia, and adjusting CPAP pressure. - Patient has a new mask with a swiveling hose and reports improved compliance. Plan: - Encourage the patient to complete the recommended blood tests. - Follow up with the sleep specialist for further evaluation and management. - Continue using the CPAP machine as prescribed. 3. Restless legs syndrome: - Patient reports experiencing restless legs and waking up tangled in CPAP cords. Plan: - Monitor symptoms and consider further evaluation or treatment if symptoms worsen or impact sleep quality. 4. Anxiety and depression: - Patient is currently on lamotrigine 75 mg twice a day and Auvelity twice a day for depression. - Reports improvement in anxiety symptoms. - Takes Belsomra and lorazepam as needed for sleep. Plan: - Continue current medications and monitor for any changes in mood or anxiety levels. - Encourage the patient to follow up if symptoms worsen or new concerns arise. Overall: - Patient is doing well, and no changes to her current medications are needed at this time. - Encourage the patient to follow up as needed for any concerns or changes in her health. 12/16/2024 Other insomnia (ICD-10 - G47.09) uses cpap, cont belsomra 20mg at hs 08/09/2024 Restless legs syndrome (ICD-10 - G25.81) Ropinirole- prescribed by PCP 1. Anxiety: - Patient reports increased anxiety due to home stressors. - Continue Lamotrigine 50mg twice a day, Auvelity twice a day, and Lorazepam daily as needed. Plan: - Consider increasing Lamotrigine to 75mg twice a day if anxiety persists or worsens. - Encourage the patient to contact the therapist for additional support. 2. Sleep disturbance: - Patient reports poor sleep quality, possibly related to CPAP issues and restless leg syndrome. Plan: - Encourage the patient to follow up with the sleep center for a different CPAP setup. - Address restless leg syndrome by considering a referral to a specialist. 3. Depression: - Patient reports functioning and taking care of herself despite anxiety and fatigue. - Continue current medication regimen (Lamotrigine, Auvelity). Plan: - Monitor for any changes in mood or functioning. Follow up in six weeks to assess the patient's progress and make any necessary adjustments to the treatment plan. 09/22/2024 Restless legs syndrome (ICD-10 - G25.81) Ropinirole- prescribed by PCP 1. COVID-19 infection: - Patient recently tested positive for COVID-19 and experienced significant symptoms. She is currently recovering and reports feeling better last weekend. Plan: - Continue to monitor symptoms and encourage the patient to rest and stay hydrated. - Advise the patient to follow up if symptoms worsen or new symptoms develop. 2. Sleep disturbances and CPAP use: - Patient has a history of sleep disturbances and is using a CPAP machine. - Recently saw a sleep specialist who recommended checking iron levels, anemia, and adjusting CPAP pressure. - Patient has a new mask with a swiveling hose and reports improved compliance. Plan: - Encourage the patient to complete the recommended blood tests. - Follow up with the sleep specialist for further evaluation and management. - Continue using the CPAP machine as prescribed. 3. Restless legs syndrome: - Patient reports experiencing restless legs and waking up tangled in CPAP cords. Plan: - Monitor symptoms and consider further evaluation or treatment if symptoms worsen or impact sleep quality. 4. Anxiety and depression: - Patient is currently on lamotrigine 75 mg twice a day and Auvelity twice a day for depression. - Reports improvement in anxiety symptoms. - Takes Belsomra and lorazepam as needed for sleep. Plan: - Continue current medications and monitor for any changes in mood or anxiety levels. - Encourage the patient to follow up if symptoms worsen or new concerns arise. Overall: - Patient is doing well, and no changes to her current medications are needed at this time. - Encourage the patient to follow up as needed for any concerns or changes in her health. 12/16/2024 Restless legs syndrome (ICD-10 - G25.81) Ropinirole- prescribed by PCP 08/09/2024 Major depressive disorder, recurrent, mild (ICD-10 - F33.0) lamotrigine 75mg bid, auvelity 45mg-105mg bid 1. Anxiety: - Patient reports increased anxiety due to home stressors. - Continue Lamotrigine 50mg twice a day, Auvelity twice a day, and Lorazepam daily as needed. Plan: - Consider increasing Lamotrigine to 75mg twice a day if anxiety persists or worsens. - Encourage the patient to contact the therapist for additional support. 2. Sleep disturbance: - Patient reports poor sleep quality, possibly related to CPAP issues and restless leg syndrome. Plan: - Encourage the patient to follow up with the sleep center for a different CPAP setup. - Address restless leg syndrome by considering a referral to a specialist. 3. Depression: - Patient reports functioning and taking care of herself despite anxiety and fatigue. - Continue current medication regimen (Lamotrigine, Auvelity). Plan: - Monitor for any changes in mood or functioning. Follow up in six weeks to assess the patient's progress and make any necessary adjustments to the treatment plan. 12/16/2024 Major depressive disorder, recurrent, mild (ICD-10 - F33.0) lamotrigine 75mg bid, auvelity 45mg-105mg bid 09/22/2024 Major depressive disorder, recurrent, mild (ICD-10 - F33.0) lamotrigine 75mg bid, auvelity 45mg-105mg bid 1. COVID-19 infection: - Patient recently tested positive for COVID-19 and experienced significant symptoms. She is currently recovering and reports feeling better last weekend. Plan: - Continue to monitor symptoms and encourage the patient to rest and stay hydrated. - Advise the patient to follow up if symptoms worsen or new symptoms develop. 2. Sleep disturbances and CPAP use: - Patient has a history of sleep disturbances and is using a CPAP machine. - Recently saw a sleep specialist who recommended checking iron levels, anemia, and adjusting CPAP pressure. - Patient has a new mask with a swiveling hose and reports improved compliance. Plan: - Encourage the patient to complete the recommended blood tests. - Follow up with the sleep specialist for further evaluation and management. - Continue using the CPAP machine as prescribed. 3. Restless legs syndrome: - Patient reports experiencing restless legs and waking up tangled in CPAP cords. Plan: - Monitor symptoms and consider further evaluation or treatment if symptoms worsen or impact sleep quality. 4. Anxiety and depression: - Patient is currently on lamotrigine 75 mg twice a day and Auvelity twice a day for depression. - Reports improvement in anxiety symptoms. - Takes Belsomra and lorazepam as needed for sleep. Plan: - Continue current medications and monitor for any changes in mood or anxiety levels. - Encourage the patient to follow up if symptoms worsen or new concerns arise. Overall: - Patient is doing well, and no changes to her current medications are needed at this time. - Encourage the patient to follow up as needed for any concerns or changes in her health. 12/16/2024 Other 1. Insomnia: - Patient reports running out of Belsomra and having difficulty reordering it through [employer]. She believes it was helping her sleep. Plan: - Send a new prescription for Belsomra to [facility] to facilitate the refill process. 2. 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 Plan: - Encourage the patient to continue using the new CPAP mask and follow up with her abrasive water jet cutter operator as needed. 3. Mood stability: - Patient reports overall stable mood on her current medications (Auvi-Q, Lamotrigine). Plan: - Continue with the current medication regimen and monitor for any changes in mood. 4. Anxiety: - Patient requests a refill of Lorazepam for occasional use during high-stress days. Plan: - Send a prescription for Lorazepam (30 tablets) to the local [facility] pharmacy. 5. Pharmacy preferences: - Patient expresses dissatisfaction with [facility] and is considering transferring her prescriptions to [facility]. Plan: - Discuss the patient's pharmacy preferences during the next visit and assist with transferring prescriptions if needed. 6. Follow-up: - Schedule a follow-up appointment in four months to reassess the patient's progress and medication regimen. Plan Of Treatment Next Appt Details Provider Name:Presley gambino, 04/14/2025 01:00:00 PM, [address] [facility] [address], [place], [address], Insurance Providers Payer Name Payer Address Payer Phone Subscriber Number Group Number Insured Name Patient Relationship to Insured Coverage Start Date Coverage End Date [facility] [address] [place] [address] [id number] SEEMA GUTIÉRREZ Spouse - patient is the spouse of the insured Medical (General) History Medical History History ICD Code Problems: Generalized anxiety disorder Mild recurrent major depression Persistent insomnia Recurrent major depression in remission Restless legs Severe recurrent major depression withou t psychotic features , Surgical History Surgery Date(Month/Year) Hysterectomy/revise vagina (04908) Hysterectomy (14774) 03/06/2005 Other 10/26/2002
--- OUTSIDE RECORDS SUMMARY | 2025-03-13 13:19 | XMS_ITS | Encounter Summary ---
Author Organization [facility] Address [address] [place] [address] Care Team Providers Care Automotive Customer Experience Advisor Name Role Phone Chester Renee DO Primary Care Provider Encounter Details Date Type Department Care Team (Latest Contact Info) Description 11/28/2004 Outpatient Historical HIS [facility] MICHAEL Vargas, Laz Julio MD [address] [facility] [address] [place] [address] SUPRF OTHER HIGH RISK (Primary Dx) Social History Tobacco Use Types Packs/Day Years Used Date Smoking Tobacco: Never Assessed Comments Unknown Sex and Gender Information Value Date Recorded Sex Assigned at Female 12/05/2024 4:56 PM FURNITURE DIPPER Legal Sex Female 3:19 AM FURNITURE DIPPER Gender Identity Female 12/05/2024 4:56 PM FURNITURE DIPPER Sexual Orientation Straight 12/05/2024 4: 56 PM FURNITURE DIPPER documented as of this encounter Plan of Treatment Upcoming Encounters Date Type Department Care Team (Late st Contact Info) Description 02/14/2026 9:20 AM CDT Office Visit [facility] - [address] [facility] [address] [facility] [address] [place] [address] [place] [id number] [facility] [address] [place] [address] documented as of this encounter Visit Diagnoses Diagnosis Supervision of other high-risk (V23.89)- Primary Supervision of other high-risk documented in this encounter Care Teams Automotive Customer Experience Advisor Relationship Specialty Start Date End Date Chester Renee DO [address] [facility] [address] [facility] [address] [place] [address] PCP - General Internal Medicine 12/20/20 documented as of this encounter
--- OUTSIDE RECORDS SUMMARY | 2025-03-13 13:19 | XMS_ITS | Encounter Summary ---
Author Organization [facility] Address [address] [place] [address] Care Team Providers Care Icing Mixer Name Role Phone Chester Renee DO Primary Care Provider [phone] Encounter Details Date Type Department Care Team (Latest Contact Info) Description 12/19/2004 Outpatient Historical HIS [facility] Laz Vargas MD [address] [place] [address] SUPRF OTHER HIGH RISK (Primary Dx) Social History Tobacco Use Types Packs/Day Years Used Date Smoking Tobacco: Never Assessed Comments Unknown Sex and Gender Information Value Date Recorded Sex Assigned at Female 12/05/2024 4:56 PM RN INTERN Legal Sex Female 3:19 AM RN INTERN Gender Identity Female 12/05/2024 4:56 PM RN INTERN Sexual Orientation Straight 12/05/2024 4: 56 PM RN INTERN documented as of this encounter Plan of Treatment Upcoming Encounters Date Type Department Care Team (Late st Contact Info) Description 02/14/2026 9:20 AM CDT Office Visit [facility] - [address] [facility] [address] [facility] [address] [place] [address] [place] [address] [facility] [address] [place] [address] documented as of this encounter Visit Diagnoses Diagnosis Supervision of other high-risk (V23.89)- Primary Supervision of other high-risk documented in this encounter Care Teams Icing Mixer Relationship Specialty Start Date End Date Chester Renee DO [address] [facility] [address] [facility] [address] [place] [address] PCP - General Internal Medicine 12/20/20 documented as of this encounter
--- OUTSIDE RECORDS SUMMARY | 2025-03-13 13:19 | XMS_ITS | Encounter Summary ---
Author Organization [facility] Address [address] [place] [address] Care Team Providers Care Head Concierge Name Role Phone Chester Renee DO Primary Care Provider [phone] Encounter Details Date Type Department Care Team (Late st Contact Info) Description 03/04/2005 Outpatient Historical [facility] Maternal and Ground Floor [address] [facility] [address] [place] [address] Laz Vargas MD [address] [facility] [address], [place] [address] Social History Tobacco Use Types Packs/Day Years Used Date Smoking Tobacco: Never Assessed Comments Unknown Sex and Gender Information Value Date Recorded Sex Assigned at Female 12/05/2024 4:56 PM WOOD MILLER Legal Sex Female 3:19 AM WOOD MILLER Gender Identity Female 12/05/2024 4:56 PM WOOD MILLER Sexual Orientation Straight 12/05/2024 4: 56 PM WOOD MILLER documented as of this encounter Plan of Treatment Upcoming Encounters Date Type Department Care Team (Late Contact Info) Description 02/14/2026 9:20 AM CDT Office Visit [facility] - [address] [facility] [address] [facility] [address] [place] [id number] Sarah Abarca, [address] [facility] [address] [place] [address] documented as of this encounter Visit Diagnoses Not on filedocumented in this encounter Care Teams Head Concierge Relationship Specialty Start Date End Date Chester Renee DO [address] [facility] [address] [facility] [address] [place] [id number] PCP - General Internal Medicine 12/20/20 documented as of this encounter
--- OUTSIDE RECORDS SUMMARY | 2025-03-13 13:19 | XMS_ITS | Encounter Summary ---
Author Organization [facility] Address [address] [place] [address] Care Team Providers Care Health Claims Examiner Name Role Phone Chester Renee DO Primary Care Provider [phone] Encounter Details Date Type Department Care Team (Latest Contact Info) Description 12/19/2004 Outpatient Historical [facility] Laz Vargas MD [address] 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 Legal Sex Female 3:19 AM JAVA ENTERPRISE ARCHITECT Gender Identity Female 12/05/2024 4:56 PM JAVA ENTERPRISE ARCHITECT Sexual Orientation Straight 12/05/2024 4: 56 PM JAVA ENTERPRISE ARCHITECT documented as of this encounter Plan of Treatment Upcoming Encounters Date Type Department Care Team (Late st Contact Info) Description 02/14/2026 9:20 AM CDT Office Visit [facility] - [address] [facility] [address] [facility] [address] [place] [address] [place] [address] [facility] [address] [place] [address] documented as of this encounter Visit Diagnoses Diagnosis Screening for malignant neoplasm of the cervix- Primary documented in this encounter Care Teams Health Claims Examiner Relationship Specialty Start Date End Date Chester Renee DO [address] [facility] [address] [facility] [address] [place] [id number] PCP - General Internal Medicine 12/20/20 documented as of this encounter
--- OUTSIDE RECORDS SUMMARY | 2025-03-13 13:19 | XMS_ITS | Clinical Summary ---
Author Organization [facility] Address [address], [facility] [address] [place] [address] Phone Care Team Providers Care Railroad Supervisor Of Engines Name Role Phone Marcos Dupree MD Primary Care Provider [phone] Allergies No known active allergies Medications rOPINIRole (REQUIP) 3 MG Tablet Take 3 mg by mouth nightly. Active oxybutynin (DITROPAN) 5 MG Tablet Take 5 mg by mouth 2 times daily. Active rosuvastatin (CRESTOR) 20 MG Tablet Take 20 mg by mouth daily. Active zolpidem (AMBIEN) 10 MG Tablet Take 10 mg by mouth nightly as needed. Active LORazepam (ATIVAN) 0.5 MG Tablet Take 0.5 mg by mouth every 6 hours as needed. Active DULOXETINE HCL PO Take by mouth. Active Social History Tobacco Use Types Packs/Day Years Used Date Smoking Tobacco: Every Day Cigarettes 0.5 25 Comments No Sex and Gender Information Value Date Recorded Sex Assigned at Not on file Legal Sex Female 8:32 PM CDT Gender Identity Not on file Sexual Orientation Not on file Last Filed Vital Signs Vital Sign Reading Time Taken Comments Blood Pressure - - Pulse - - Temperature - - Respiratory Rate - - Oxygen Saturation - - Inhaled Oxygen Concentration - - Weight 88.9 kg (196 lb) 11/10/2018 9:30 AM AVIATION PROGRAM MANAGER Height 165.1 cm (5' 5 ) 11/10/2018 9:30 AM AVIATION PROGRAM MANAGER Body Mass Index 32.62 11/10/2018 9:30 AM AVIATION PROGRAM MANAGER Plan of Treatment Health Maintenance Due Date Last Done Comments Hepatitis C Virus (HCV) Screening 1965 Cologuard 2014 Immunochemical Fecal Occult Blood 2014 Pneumococcal Immunization (5 0+ years) (1 of 1 - PCV) 2014 Zoster Immunization (1 of 2) 2014 Hepatitis B Immunization (2 of 3 - 19+ 3-dose series) 08/19/2016 07/22/2016 Colonoscopy 10/20/2023 10/20/2018 Colorectal Cancer Screening 10/20/2023 Influenza Immunization (#1) 2024 SARS-COV-2 Immunization ( season) 2024 12/10/2021, 03/04/2021, 02/11/2021 Respiratory Syncytial Virus (RSV) Immunization (Adult) (1 - 1-dose 75+ series) 2039 10/20/2018 DTaP/Tdap/Td Immunization Discontinued 07/12/2017 TdaP Immunization Completed 07/12/2017 Meningococcal Immunization (ACWY) Aged Out No longer eligible based on patient's age to complete this topic Rotavirus Immunization Aged Out No lo nger eligible based on patient's age to complete this topic Procedures Procedure Name Priority Date/Time Associated Diagnosis Comments COLONOSCOPY Routine 10/20/2018 from Last 3 Months or Most Recently Relevant to Health Maintenance Results * HM COLONOSCOPY (10/20/2018) Koffi Schwarz DO PROCEDURE/MINOR SURGICAL ORDERA BLES Final Result from Last 3 Months or Most Recently Relevant to Health Maintenance Insurance [facility] Care Teams Railroad Supervisor Of Engines Relationship Specialty Start Date End Date Marcos Dupree MD [address] [place] [address] PCP - General Internal Medicine 03/25/18
== END 2025-03-13 12:11 | disposition home or self-care (01) ==
PROVIDERS: Emergency Provider Nurse Practitioner Family; PCP Family Medicine
DX: J20.9 Acute bronchitis, unspecified (principal); Z87.891 Personal history of nicotine dependence; G25.81 Restless legs syndrome; F32.A Depression, unspecified
CPT/HCPCS: 99213; G0463

== ENCOUNTER 2025-10-20 09:54 | Outpatient (CLI) | payer BC, SELFPAY ==
--- OUTSIDE RECORDS SUMMARY | 2025-10-19 07:00 | XMS_ITS ---
Author Organization [facility] [employer] Address [address] [place] [address] Care Team Providers Care Emergency Department Coordinator Name Role Phone Tiffany Linda WOLFna Primary Care Provider Unavailab anton HanPresley Unavailable [phone] Allergies No Known Allergies REASON FOR VISIT 4 Month f/u Medications Medication SIG (Take, Route, Frequency, Duration) Notes Start Date End Date Status Propranolol HCl 20 MG Tablet Oral 02/08/2024 Active Atorvastatin Calcium 20 MG Tablet Oral 02/08/2024 Active Vagifem 10 mcg Tablet Vaginal 02/08/2024 Active Nystatin-Triamcinolo ne 074001-2.1 UNIT/GM Cream External 02/08/2024 Active ESTRADIOL 0.5 MG/0.5 GRAM (0.1 %) TRANSDERMAL GEL PACKET *Reorder from [employer] for eRx and Interaction Alerts* 02/08/2024 Active LORazepam 1 MG Tablet 1 tablet Oral Once a day; Duration: 30 days As needed dose increase 10/19/2025 Active Belsomra 20 MG Tablet TAKE 1 TABLET AT BEDTIME Orally Once a day; Duration: 90 days 10/19/2025 04/17/2026 Active lamoTRIgine 25 MG Tablet 3 tablets Oral TWICE A DAY; Duration: 90 days 10/19/2025 Active Auvelity 45-105 MG Tablet Extended Release 1 tablet Oral twice a day; Duration: 90 days *Reorder from [employer] for eRx and Interaction Alerts* 10/19/2025 Active Vraylar 1.5 MG Capsule 1 capsule Orally Once a day; Duration: 90 days 10/19/2025 Active rOPINIRole HCl 1 MG Tablet Oral; Duration: 90 Days Active Minoxidil 2.5 MG Tablet Oral; Duration: 90 Days Active Clobetasol Propionate 0.05 % Cream External; Duration: 30 Days Active Auvelity 45-105 MG Tablet Extended Release TAKE 1 TABLET TWICE A DAY; Duration: 30 Active lamoTRIgine 25 MG Tablet 3 tablets Oral TWICE A DAY; Duration: 90 days Active Probiotic *Pick strength-form from [employer] for eRX* 02/08/2024 Active Social History Sex Assigned At : Social History Observation Description Sex Assigned At Female Vital Signs Blood pressure systolic 131 mm Hg 10/19/20 25 Blood pressure diastolic 81 mm Hg 025 Heart Rate 71 /min 10/19/2025 Height 65.00 in 10/19/2025 Weight 216.2 lbs 10/19/2025 BMI 35.97 kg/m2 10/19/2025 Height-cm 165.1 cm 10/19/2025 Weight-kg 98.07 kg 10/19/2025 Encounters Encounter Location Date Provider Diagnosis [facility] [place] [address] [address] 10/19/2025 Presley Han Generalized anxiety disorder F41.1 ; Other insomnia G47.09 ; Restless legs syndrome G25.81 and Major depressive disorder, recurrent, mild F33.0 Assessments Encounter Date Diagnosis (ICD Code) Assessment Notes Treatment Notes Treatment Clinical Notes Section Notes 10/19/2025 Generalized anxiety disorder (ICD-10 - F41.1) cont lorazepam 0.5mg daily prn 10/19/2025 Other insomnia (ICD-10 - G47.09) uses cpap, cont belsomra 20mg at hs 10/19/2025 Restless legs syndrome (ICD-10 - G25.81) Ropinirole- prescribed by PCP 10/19/2025 Major depressive disorder, recurrent, mild (ICD-10 - F33.0) lamotrigine 75mg bid, auvelity 45mg-105mg bid 10/19/2025 Other 60-year-old female presenting with worsening anxiety, depression, and sleep disturbances following recent job loss, marital conflict, and family stressors. Anxiety with inadequate symptom control Patient reports lorazepam is no longer providing adequate relief for anxiety symptoms. She has been taking it more frequently lately and acknowledges tolerance development. Current anxiety is exacerbated by multiple stressors including recent job loss, marital difficulties, and family conflicts. Patient experiences racing thoughts, poor sleep, excessive worry, and emotional dysregulation particularly in the evenings. Plan: - Consider increasing lorazepam dose given current inadequate response - Discussed adding adjunctive medication if daily lorazepam use continues to address tolerance concerns - Patient advised that daily benzodiazepine use frequently leads to tolerance requiring dose escalation Depression with tearfulness and mood symptoms Patient experiencing significant tearfulness, emotional lability, and depressive symptoms in the context of multiple psychosocial stressors. Currently on Auvelity twice daily and lamotrigine 75 mg twice daily. Patient reports some benefit from current regimen but symptoms persist with recent worsening. Considering adjunctive treatment given inadequate response to current antidepressant therapy. Plan: - Consider increasing lamotrigine to 75 mg twice weekly or 100 mg weekly - Discussed adding aripiprazole as adjunctive treatment for depression - Patient educated that aripiprazole is an antipsychotic used adjunctively for depression, with selective receptor activity and minimal side effects Sleep disturbances Patient reports poor sleep quality contributing to overall symptom burden. Currently taking trazodone which she finds helpful for sleep. Sleep disruption appears related to anxiety, racing thoughts, and worry about multiple life stressors. Plan: - Continue trazodone for sleep support - Patient reports next prescription will increase to 2 mg (unclear if this refers to trazodone or another medication) Psychosocial stressors and relationship difficulties Patient facing multiple significant stressors including recent job loss after expecting to work only 1-2 more years before detention, marital conflict with communication breakdown, adult son living at home displaying disrespectful behavior, and daughter's recent disclosure of sexual orientation creating family tension. Patient acknowledges codependent patterns and difficulty setting boundaries. Recently lost therapeutic support due to insurance changes following job loss, creating additional barrier to care during high-stress period. 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 It is a reflection of a visit with the patient. It might have some inaccuracy, including medication names and transcribing errors, though efforts have been made to correct them. Plan Of Treatment Medication Medication Name Sig Start Date Stop Date Notes LORazepam 1 MG Tablet 1 tablet Oral Once a day; Duration: 30 days 10/19/2025 dose increase Belsomra 20 MG Tablet TAKE 1 TABLET AT BEDTIME Orally Once a day; Duration: 90 days 10/19/2025 04/17/2026 lamoTRIgine 25 MG Tablet 3 tablets Oral TWICE A DAY; Duration: 90 days 10/19/2025 Auvelity 45-105 MG Tablet Extended Release 1 tablet Oral twice a day; Duration: 90 days 10/19/2025 *Reorder from [facility] for eRx and Interaction Alerts* Vraylar 1.5 MG Capsule 1 capsule Orally Once a day; Duration: 90 days 10/19/2025 Treatment Notes Assessment Notes Generalized anxiety disorder cont loraze jono 0.5mg daily prn Other insomnia uses cpap, cont bels omra 20mg at hs Restless legs syndrome Ropinirole- presc ribed by PCP Major depressive disorder, r ecurrent, mild lamotrigine 75mg bid, auvelity 45mg-105m g bid Other 60-year-old female presenting with worsening anxiety, depression, and sleep disturbances following recent job loss, marital conflict, and family stressors. Anxiety with inadequate symptom control Patient reports lorazepam is no longer providing adequate relief for anxiety symptoms. She has been taking it more frequently lately and acknowledges tolerance development. Current anxiety is exacerbated by multiple stressors including recent job loss, marital difficulties, and family conflicts. Patient experiences racing thoughts, poor sleep, excessive worry, and emotional dysregulation particularly in the evenings. Plan: - Consider increasing lorazepam dose given current inadequate response - Discussed adding adjunctive medication if daily lorazepam use continues to address tolerance concerns - Patient advised that daily benzodiazepine use frequently leads to tolerance requiring dose escalation Depression with tearfulness and mood symptoms Patient experiencing significant tearfulness, emotional lability, and depressive symptoms in the context of multiple psychosocial stressors. Currently on Auvelity twice daily and lamotrigine 75 mg twice daily. Patient reports some benefit from current regimen but symptoms persist with recent worsening. Considering adjunctive treatment given inadequate response to current antidepressant therapy. Plan: - Consider increasing lamotrigine to 75 mg twice weekly or 100 mg weekly - Discussed adding aripiprazole as adjunctive treatment for depression - Patient educated that aripiprazole is an antipsychotic used adjunctively for depression, with selective receptor activity and minimal side effects Sleep disturbances Patient reports poor sleep quality contributing to overall symptom burden. Currently taking trazodone which she finds helpful for sleep. Sleep disruption appears related to anxiety, racing thoughts, and worry about multiple life stressors. Plan: - Continue trazodone for sleep support - Patient reports next prescription will increase to 2 mg (unclear if this refers to trazodone or another medication) Psychosocial stressors and relationship difficulties Patient facing multiple significant stressors including recent job loss after expecting to work only 1-2 more years before detention, marital conflict with communication breakdown, adult son living at home displaying disrespectful behavior, and daughter's recent disclosure of sexual orientation creating family tension. Patient acknowledges codependent patterns and difficulty setting boundaries. Recently lost therapeutic support due to insurance changes following job loss, creating additional barrier to care during high-stress period. 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 It is a reflection of a visit with the patient. It might have some inaccuracy, including medication names and transcribing errors, though efforts have been made to correct them. Next Appt Details Follow Up: 4 Weeks, Reason: f/u depression Provider Name:Presley gambino, 11/16/2025 01:15:00 PM, [address], [facility] [address], [place], [address], History and Physical Notes * HPI (History of Present Illness) Category Sub-Category Detail Notes Category Not es History of Presenting Problem Anxiety persistent Depression Onset: years ago, Associated Symptoms: sadness, crying Sleep disturbance sleep apnea, uses cpap Depression screening PHQ-9 Little inte rest or pleasure in doing things: More than half the days Feeling down, depressed, or hopeless: Mo re than half the days Trouble falling or staying asleep, or sl eeping too much: Nearly every day Feeling tired or having little energy: M ore than half the days Poor appetite or overeating: Several day s Feeling bad about yourself o r that you are a failure, or have let yourself or your family down: Several days Trouble concentrating on thi ngs, such as reading the newspaper or watching television: More than half the days Moving or speaking so slowly that other people could have noticed; or the opposite, being so fidgety or restless that you have been moving around a lot more than usual: More than half the days Thoughts that you would be b alli off or of hurting yourself in some way: Not at all Total Score: 15 Interpretation: Moderately Severe Depres titi Intervention Depression Screening Findings: P ositve Follow-Up for Depression: [facility] health care management, Psychiatric follow-up Suicide Risk Assessment Performed: __ da te Past Psychiatric Medications Bupropion xl, Trintellix, buspirone, Seroquel xr, abilify, duloxetine Examination Category Sub-Category Detail Notes Category Not es Psychiatry Appearance: well-groomed, well-nourished , ... Attitude: cooperative Psychomotor activity: within normal rang e Attention: good Degree of awareness of surroundings: wit hin normal limits Orientation: awake, alert and talisha ented x 3 Affect / mood: appropriate, full ra nge Speech / language: appropriate pitch/mo dulation, clear and coherent, normal rate, volume, and articulation (RVR), proper grammar used Insight: good Judgement: good Thought process: intact Thought content: appropriate Perceptual disorders: no perceptual diso rder noted Suicidal ideation: none Intellectual functioning: no impairment noted Memory status: no impairment noted Delusions: no Hallucinations: no General Examination Mental Status Examination The patient reported her mood as not good and endorsed significant tearfulness, stating I've been crying a whole lot. She demonstrated emotional lability with irritability, describing herself as becoming nasty and mean, especially at night and acknowledging that her head just spins. Her speech was goal-directed and coherent throughout the interview. Thought process appeared linear and organized as she provided a chronological account of recent stressors including job loss, marital difficulties, and family conflicts. She demonstrated fair insight, acknowledging her role in interpersonal difficulties by stating I know I'm not easy to deal with sometimes and recognizing her need for mental health treatment. Her judgment appeared intact as evidenced by her proactive seeking of therapy and medication management, though she expressed frustration with therapeutic boundaries and accessibility. Progress Notes * JOANN STREETERDOB:[birth year] (60 yo F)Acc No.[id number]:10/19/2025 Patient: JOANN BROWN Provider: Lucero HAN PMHNP :1965 A ge:60 Y S ex:Female Date:10/19/2025 Address:[address] [place], [id number] Pcp:Zuri Allen DO Subjective: * Chief Complaints: * 4 Month f/u * HPI: H istory of Presenting Problem: patient is smoker Chief Complaint Job loss, marital problems with not talking to her, disrespectful adult son living at home, daughter disclosed she is chinchilla, crying frequently, not sleeping well, worrying about job and family relationships, lorazepam not helping as much for anxiety History of Present Illness Joann Streeter is a 60-year-old female presenting with worsening anxiety, depression, and multiple psychosocial stressors following recent job loss. She reports losing her job again due to her employer losing two major pieces of business, which was particularly devastating as she had hoped to work only another year or two before detention to help with her children's tuition expenses. This recent job loss has triggered memories of a previous period of unemployment lasting over a year, during which she sent out 100 resumes and applications before eventually taking a part-time position at [employer]. She describes feeling daunted by the prospect of job searching again. The patient reports significant marital difficulties, stating her marriage is in the toilet and that her will not talk to her at all. She acknowledges that her says she becomes nasty and mean, especially at night and admits this is sometimes true, attributing it to her head spinning and needing medication adjustments. She has a 23-year-old son living at home who she describes as becoming very disrespectful, and there was recent conflict when her daughter called to share that she is chinchilla and the son opposed having her visit for Thanksgiving. The patient feels disrespected and is considering making difficult choices about her living situation. She reports significant sleep disturbances, frequent crying, and worrying extensively about her job, children, and relationship with her . Her anxiety symptoms appear to be worsening, as she notes her current lorazepam is not helping as much as it used to, and she has been taking it more frequently lately. She is currently taking lamotrigine 75 mg twice daily, Auvelity twice daily, and mentions taking something for sleep apnea. She had started seeing a new therapist with whom she felt she hit it off right away, but discontinued therapy after losing her job and being disappointed by the therapist's delayed response to her crisis call. The patient acknowledges working hard to maintain good mental health and has obtained a book about codependency, recognizing this as part of her problem. She expresses awareness of needing to set better boundaries, particularly with her adult son living at home. Social History The patient recently lost her job due to her employer losing business, which occurred after a previous period of unemployment lasting over a year during which she eventually took a part-time position at [employer]. She is currently 60 years old and was hoping to work only another year or two before detention to help with children's tuition expenses. She is but reports significant marital difficulties with poor communication, describing her marriage as in the toilet. She has an adult son who is turning 23 next week and currently lives at home, whom she describes as becoming increasingly disrespectful. She also has a daughter who recently disclosed that she is chinchilla. The patient reports high stress levels related to employment concerns, family relationships, and financial worries. She acknowledges becoming irritable and mean, particularly in the evenings, and reports frequent crying. She has been working on addressing codependent behaviors and plans to read self-help materials on this topic. The patient previously established care with a therapist whom she felt she connected with well, but discontinued therapy after losing her job and insurance coverage. She expresses frustration with the therapist's delayed response time compared to her previous therapist who provided more immediate accessibility. Medical History The patient has a history of sleep apnea. She has previously worked with therapists for mental health support, including a recent therapist with whom she felt she had a good connection before losing her job and insurance coverage. Medications and Supplements - Lorazepam - Not helping as much as it used to. Taking daily lately. - Lamotrigine 75 mg twice daily - Auvelity twice daily - Belsomra 1 mg - Helps with sleep. Has run out once or twice and could tell when missed. Review of Systems The patient reports significant sleep disturbances with poor sleep quality. She experiences frequent crying episodes and describes her head as spinning. She reports increased irritability and emotional lability, particularly noting that she becomes nasty and mean, especially at night. No other constitutional, cardiovascular, respiratory, gastrointestinal, genitourinary, musculoskeletal, hematological, neurological, or endocrine symptoms were reported. Depression O nset: years ago, A ssociated Symptoms: sadness, crying. Anxiety p ersistent. Sleep disturbance s leep apnea, uses cpap. D epression screening: PHQ-9 L ittle interest or pleasure in doing things?More than half the days F eeling down, depressed, or hopeless M ore than half the days T rouble falling or staying asleep, or sleeping too much N early every day F eeling tired or having little energy M ore than half the days P oor appetite or overeating S everal days F eeling bad about yourself or that you are a failure, or have let yourself or your family down S everal T rouble concentrating on things, such as reading the newspaper or watching television M ore than half the days M oving or speaking so slowly that other people could have noticed; or the opposite, being so fidgety or restless that you have been moving around a lot more than usual M ore than half the days T houghts that you would be better off or of hurting yourself in some way N ot at all T otal Score 1 5 I nterpretation M oderately Severe Depression Intervention D epression Screening Findings P ositve F ollow-Up for Depression M ental health care management, Psychiatric follow-up S uicide Risk Assessment Performed _ _ date P ast Psychiatric Medications: Bupropion xl, Trintellix, buspirone, Seroquel xr, abilify, duloxetine. * Medical History: Problems: Generalized anxiety disorder Mild recurrent major depression Persistent insomnia Recurrent major depression in remission Restless legs Severe recurrent major depression without psychotic features , Imported from Highlights: On 07/20/2024, external device data was recorded at [facility]. This was followed by similar data entries on 08/30/2024, 09/13/2024, and 09/28/2024. A telephone consultation with Sarah Abarca DO, occurred on 06/28/2024. In early 2024, external device data was noted on 12/06/2024 and 12/21/2024. Sarah Abarca DO, provided refills on 12/03/2024 and 12/17/2024. External device data continued to be recorded on 01/17/2025, 02/01/2025, 02/03/2025, 02/04/2025, 02/06/2025, 02/07/2025, and 02/15/2025. On 02/08/2025, an office visit with Sarah Abarca DO, included breast cancer screening by mammogram, postmenopausal hormone replacement therapy, and a well woman exam with routine gynecological exam. A refill was provided on 02/09/2025, followed by orders only on 02/10/2025. External device data was again recorded on 02/28/2025, 04/18/2025, 04/19/2025, and 04/25/2025. On 05/23/2025, external device data was noted, and a telephone consultation with Sarah Abarca DO, occurred on 06/20/2025. Medical History Verified * Medications: T akinglamoTRIgine 25 MG Tablet 3 tablets Oral TWICE A DAY Belsomra 20 MG Tablet TAKE 1 TABLET AT BEDTIME Orally Once a day Nystatin-Triamcinolone 436794-7.1 UNIT/GM Cream External Vagifem 10 mcg Tablet Vaginal Atorvastatin Calcium 20 MG Tablet Oral Propranolol HCl 20 MG Tablet Oral ESTRADIOL 0.5 MG/0.5 GRAM (0.1 %) TRANSDERMAL GEL PACKET , Notes to Pharmacist: *Reorder from [employer] for eRx and Interaction Alerts*Probiotic , Notes to Pharmacist: *Pick strength-form from [employer] for eRX*lamoTRIgine 25 MG Tablet 3 tablets Oral TWICE A DAY LORazepam 0.5 MG Tablet 1 tablet Oral Once a day Auvelity 45-105 MG Tablet Extended Release TAKE 1 TABLET TWICE A DAY Clobetasol Propionate 0.05 % Cream External Minoxidil 2.5 MG Tablet Oral rOPINIRole HCl 1 MG Tablet Oral Medication List reviewed and reconciled with the patientTaking lamoTRIgine 25 MG Tablet 3 tablets Oral TWICE A DAY Taking Belsomra 20 MG Tablet TAKE 1 TABLET AT BEDTIME Orally Once a day Taking Nystatin- Triamcinolone 908377-8.1 UNIT/GM Cream External Taking Vagifem 10 mcg Tablet Vaginal Taking Atorvastatin Calcium 20 MG Tablet Oral Taking Propranolol HCl 20 MG Tablet Oral Taking ESTRADIOL 0.5 MG/0.5 GRAM (0.1 %) TRANSDERMAL GEL PACKET , Notes to Pharmacist: *Reorder from [facility] for eRx and Interaction Alerts*Taking Probiotic , Notes to Pharmacist: *Pick strength-form from [facility] for eRX*Taking lamoTRIgine 25 MG Tablet 3 tablets Oral TWICE A DAY Taking LORazepam 0.5 MG Tablet 1 tablet Oral Once a day Taking Auvelity 45-105 MG Tablet Extended Release TAKE 1 TABLET TWICE A DAY Taking Clobetasol Propionate 0.05 % Cream External Taking Minoxidil 2.5 MG Tablet Oral Taking rOPINIRole HCl 1 MG Tablet Oral Medication List reviewed and reconciled with the patient * Allergies: N .K.D.A.yesAllergies Verified. Objective: * Vitals: B P:131/81mm Hg, HR:71/min, Wt:216.2lbs, Wt-k.07 kg, Ht: 65.00 in, Ht-cm: 165.1 cm, BMI:35.97Index, Body Surface Area: 2.12. * Examination: P sychiatry: Appearance: w ell-groomed, well-nourished, .... Affect / mood: a ppropriate, full range. Attention: g ood. Attitude: c ooperative. Suicidal ideation: n one. Memory status: n o impairment noted. Degree of awareness of surroundings: w ithin normal limits.? Delusions: n o. Hallucinations: n o. Insight: g ood. Intellectual functioning: n o impairment noted. Judgement: g ood. Orientation: a wake, alert and oriented x 3. Perceptual disorders: n o perceptual disorder noted. Psychomotor activity: w ithin normal range. Speech / language: a ppropriate pitch/modulation, clear and coherent, normal rate, volume, and articulation (RVR), proper grammar used. Thought content: a ppropriate. Thought process: i ntact. G eneral Examination: M ental Status Examination The patient reported her mood as not good and endorsed significant tearfulness, stating I've been crying a whole lot. She demonstrated emotional lability with irritability, describing herself as becoming nasty and mean, especially at night and acknowledging that her head just spins. Her speech was goal-directed and coherent throughout the interview. Thought process appeared linear and organized as she provided a chronological account of recent stressors including job loss, marital difficulties, and family conflicts. She demonstrated fair insight, acknowledging her role in interpersonal difficulties by stating I know I'm not easy to deal with sometimes and recognizing her need for mental health treatment. Her judgment appeared intact as evidenced by her proactive seeking of therapy and medication management, though she expressed frustration with therapeutic boundaries and accessibility. Assessment: * Assessment: 1. G eneralized anxiety disorder - F41.1 (Primary) 2 . O ther insomnia - G47.09 3 . R estless legs syndrome - G25.81 4 . M ajor depressive disorder, recurrent, mild - F33.0 Plan: * Treatment: 2. O ther insomnia Refill Belsomra Tablet, 20 MG, TAKE 1 TABLET AT BEDTIME, Orally, Once a day, 90 days, 90, Refills 1. Notes:uses cpap, cont belsomra 20mg at hs 3. R estless legs syndrome Notes: Ropinirole- prescribed by PCP 4. M ajor depressive disorder, recurrent, mild Refill Auvelity Tablet Extended Release, 45-105 MG, 1 tablet, Oral, twice a day, 90 days, 180 Tablet, Refills 1, Notes to Pharmacist: *Reorder from [employer] for eRx and Interaction Alerts*; R efill lamoTRIgine Tablet, 25 MG, 3 tablets, Oral, TWICE A DAY, 90 days, 540 Tablet, Refills 1; S tart Vraylar Capsule, 1.5 MG, 1 capsule, Orally, Once a day, 90 days, 90 Capsule, Refills 1. ? Notes:lamotrigine 75mg bid, auvelity 45mg-105mg bid 5. O thers Notes: 60-year-old female presenting with worsening anxiety, depression, and sleep disturbances following recent job loss, marital conflict, and family stressors. Anxiety with inadequate symptom control Patient reports lorazepam is no longer providing adequate relief for anxiety symptoms. She has been taking it more frequently lately and acknowledges tolerance development. Current anxiety is exacerbated by multiple stressors including recent job loss, marital difficulties, and family conflicts. Patient experiences racing thoughts, poor sleep, excessive worry, and emotional dysregulation particularly in the evenings. Plan: - Consider increasing lorazepam dose given current inadequate response - Discussed adding adjunctive medication if daily lorazepam use continues to address tolerance concerns - Patient advised that daily benzodiazepine use frequently leads to tolerance requiring dose escalation Depression with tearfulness and mood symptoms Patient experiencing significant tearfulness, emotional lability, and depressive symptoms in the context of multiple psychosocial stressors. Currently on Auvelity twice daily and lamotrigine 75 mg twice daily. Patient reports some benefit from current regimen but symptoms persist with recent worsening. Considering adjunctive treatment given inadequate response to current antidepressant therapy. Plan: - Consider increasing lamotrigine to 75 mg twice weekly or 100 mg weekly - Discussed adding aripiprazole as adjunctive treatment for depression - Patient educated that aripiprazole is an antipsychotic used adjunctively for depression, with selective receptor activity and minimal side effects Sleep disturbances Patient reports poor sleep quality contributing to overall symptom burden. Currently taking trazodone which she finds helpful for sleep. Sleep disruption appears related to anxiety, racing thoughts, and worry about multiple life stressors. Plan: - Continue trazodone for sleep support - Patient reports next prescription will increase to 2 mg (unclear if this refers to trazodone or another medication) Psychosocial stressors and relationship difficulties Patient facing multiple significant stressors including recent job loss after expecting to work only 1-2 more years before detention, marital conflict with communication breakdown, adult son living at home displaying disrespectful behavior, and daughter's recent disclosure of sexual orientation creating family tension. Patient acknowledges codependent patterns and difficulty setting boundaries. Recently lost therapeutic support due to insurance changes following job loss, creating additional barrier to care during high-stress period. 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 It is a reflection of a visit with the patient. It might have some inaccuracy, including medication names and transcribing errors, though efforts have been made to correct them. * Procedure Codes: G 9902 Pt scrn tbco and id as [id number] BEHAV ASSMT W/SCORE & DOCD/STAND INSTRUMENT * Preventive Medicine: Counseling: C ommunication to patient: Counseled the Patient on tobacco use; cessation provided D ate Counseled the Patient on smoking cessation; education provided D ate Counseled the Patient on smoking effects; education provided D ate Screenings: D epression screening Have you had a recent depression screening? Y es S moking Cessation counseling done Discuss the importance of quitting smoking. * Follow Up: 4 Weeks (Reason: f/u depression) Billing Information: * Visit Code: 89911 OFFICE OUTPATIENT VISIT 25 MINUTES DETAILED HISTORY AND EXAM/MODERATE MEDICAL DECISION MAKING. * Procedure Codes: G9902 Pt scrn tbco and id as user. [id number] BEHAV ASSMT W/SCORE & DOCD/STAND INSTRUMENT. * CRITIC Sign off status: Completed true * Provider: CHAPARRITA GUILLERMO Date: 12/19/2024 Generated for Daiana dove/Cruzito/Susanitting on: 12/20/2024 10:00 AM ART CRITIC
--- NOTE | ~2025-10-20 | CT_ITS ---
EXAMINATION: CT lung screening DATE: 10/20/2025 10:18 INDICATION: Z87.891 - Personal history of nicotine dependence TECHNIQUE: Computed tomography (CT) of the chest was performed without intravenous contrast. Additional 3D reconstructions utilizing coronal maximum intensity projection (MIP) were performed. Automated exposure control and iterative reconstruction technique were employed. The dose-length product was 12 9.26 mGy-cm. COMPARISON: None FINDINGS: Linear bands of discoid atelectasis at the lingula and right middle lobe. No suspicious pulmonary nodules, pneumonia, pulmonary edema or pleural effusion. Heart size is normal. No pericardial effusion. Thoracic aorta is normal in caliber. No pathologically enlarged thoracic lymphadenopathy. Visualized upper abdomen is unremarkable. Mild thoracic dextrocurvature with mild to moderate spondylosis. IMPRESSION: 1. Lung-RADS category 1: Negative. Continue annual screening with noncontrast low-dose chest CT in 12 months. Reviewed, dictated and finalized at location A. 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 Lung-RADS category 1: Negative. Continue annual screening with noncontrast l ow-dose chest CT in 12 months.
--- OUTSIDE RECORDS SUMMARY | 2025-10-20 10:00 | XMS_ITS | Clinical Summary ---
Author Organization [facility] Address [address] [address] [place] [address] Phone Care Team Providers Care Panel Coverer Name Role Phone Marcos Dupree MD Primary Care Provider [phone] Allergies No known active allergies Medications rOPINIRole [...] 88.9 kg (196 lb) 11/10/2018 9:30 AM CARPENTER Height 165.1 cm (5' 5) 11/10/2018 9:30 AM CARPENTER Body Mass Index 32.62 11/10/2018 9:30 AM CARPENTER Plan of Treatment Health Maintenance Due Date Last Done Comments Hepatitis C Virus (HCV) Screening 1964 Varicella Immunization (1 of 2 - 13+ 2-dose series) 1977 Pap Smear 1985 Cervical Cancer Screening (CCS) 1994 HPV/Cotest 1994 Cologuard 2009 Immunochemical Fecal Occult Blood 2009 Pneumococcal Immunization (5 0+ years) (1 of 1 - PCV) 2014 Zoster Immunization (1 of 2) 2014 Hepatitis B Immunization (2 of 3 - 19+ 3-dose series) 08/19/2016 07/22/2016 Colonoscopy 10/20/2023 10/20/2018 Colorectal Cancer Screening 10/20/2023 Influenza Immunization (#1) 2025 SARS-COV-2 Immunization ( season) 2025 12/10/2021, 03/04/2021, 02/11/2021 Respiratory Syncytial Virus (RSV) Immunization (Adult) (1 - 1-dose 75+ series) 2039 DTaP/Tdap/Td Immunization Discontinued 07/12/2017 TdaP Immunization Completed 07/12/2017 Human Papillomavirus (HPV) Immunization Aged Out No longer eligible based on patient's age to complete this topic Meningococcal Immunization (ACWY) Aged Out No longer eligible based on patient's age to complete this topic Rotavirus Immunization Aged Out No lo nger eligible based on patient's age to complete this topic Procedures Procedure Name Priority Date/Time Associated Diagnosis Comments COLONOSCOPY Routine 10/20/2018 from Last 3 Months or Most Recently Relevant to Health Maintenance Results * HM COLONOSCOPY (10/20/2018) us Koffi Schwarz DO PROCEDURE/MINOR SURGICAL ORDERA BLES Final Result from Last 3 Months or Most Recently Relevant to Health Maintenance Insurance [facility] Care Teams Panel Coverer Relationship Specialty Start Date End Date Marcos Dupree MD PCP - General Internal Medicine 03/25/18
--- OUTSIDE RECORDS SUMMARY | 2025-10-20 10:01 | XMS_ITS | Encounter Summary ---
Author Organization [facility] Address 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 Legal Sex Female 3:19 AM CHEMICAL MACHINE TENDER Gender Identity Female 12/05/2024 4:56 PM CHEMICAL MACHINE TENDER Sexual Orientation Straight 12/05/2024 4: 56 PM CHEMICAL MACHINE TENDER documented as of this encounter Plan of Treatment Upcoming Encounters Date Type Department Care Team (Late st Contact Info) Description 02/14/2026 9:20 AM CDT Office Visit [facility] - [address] [facility] [address] [facility] [address] [place] [address] [place] [address] [facility] [address] [place] [address] documented as of this encounter Visit Diagnoses Diagnosis Screening for malignant neoplasm of the cervix- Primary documented in this encounter Care Teams Coat Joiner Relationship Specialty Start Date End Date Chester Renee DO [address] [facility] [address] [facility] [address] [place] [address] PCP - General Internal Medicine 12/20/20 documented as of this encounter
--- OUTSIDE RECORDS SUMMARY | 2025-10-20 10:01 | XMS_ITS | Clinical Summary ---
Author Organization [facility] Address [address] [place] [address] Care Team Providers Care Brush Machine Setter Name Role Phone Zuri Allen DO Primary Care Provider [phone] Source Comments [facility],non-owned Affiliates and Associated Physician Practices is amultiple site organization consisting of ambulatory clinics and hospital sitesin [place], [place] and [place]. This disclosure is being madepursuant to the Care Everywhere program and may not contain all information available regarding this patient. Last updated 18.[facility] Allergies No known active allergies Medications * Be aware that medications may not be up to date on this document. Alwaysverify current medications with the patient. rosuvastatin (CRESTOR) 20 MG tablet Take 20 mg by mouth once daily 7 Active rOPINIRole (REQUIP) 3 MG tablet Take by mouth at bedtime 8 Active acyclovir (ZOVIRAX) 400 MG tablet 9 Active COMBIPATCH 0.05-0.14 MG/DAY patch Apply 1 patch to skin 9 Active vortioxetine (TRINTELLIX) 20 MG tablet Take 20 mg by mouth once daily Active oxybutynin (Ditropan) 5 MG tabletIndication s:Overactive bladder TAKE 1 TABLET TWICE A DAY 180 tablet 2 Active clobetasol (Temovate) 0.05 % creamIndications :Frontal fibrosing alopecia Apply to hairline twice daily. 30 days supply. 60 g 3 5 Active minoxidil (Loniten) 2.5 MG tabletIndication s:Frontal fibrosing alopecia Take one half of a pill daily. 90 day supply 45 tablet 2 5 Active doxycycline monohydrate 100 MG capsuleIndicatio ns:Frontal fibrosing alopecia Take 1 (one) capsule by mouth every 12 hours 180 capsule 1 5 Active Active Problems Problem Noted Date [...] CDT Gender Identity Female 12/15/2017 3:[address] Sexual Orientation Not on file Last Filed Vital Signs Vital Sign Reading Time Taken Comments Blood Pressure 108/67 08/01/2020 3:37 PM CDT Pulse 65 08/01/2020 3:37 PM CDT Temperature - - Respiratory Rate 16 06/12/2017 9:20 AM CDT Oxygen Saturation 97% 06/12/2017 9:20 AM CDT Inhaled Oxygen Concentration - - Weight 100.7 kg (222 lb) 08/01/2020 3:37 PM CDT Height 165.1 cm (5' 5) 07/14/2019 10:15 AM CDT Body Mass Index 36.94 07/14/2019 10:15 AM CDT Plan of Treatment Upcoming Encounters Date Type Department Care Team (Late st Contact Info) Description 01/17/2026 9:[address] Office Visit [facility]ology [address] [place] [address], [place] [address] Ramsey Pleitez MD [address] [place] [address] [address] [place] [address] Health Maintenance Due Date Last Done Comments COLOGUARD (AGES 45-75) - COL ON CA SCREENING 1964 COLON MONITORING 1964 COLONOSCOPY - COLON CA SCREENING 1964 CT COLONOGRAPHY - COLON CA SCREENING 1964 Colorectal Cancer Screening 1964 FIT - COLON CA SCREENING 1964 FLEX SIG - COLON CA SCREENING 1964 HIV SCREENING 1979 HEPATITIS C SCREENING 10/01/1982 DTAP/TDAP/TD VACCINES (1 - Tdap) 1983 PNEUMOCOCCAL VACCINE 50+ (1 of 1 - PCV) 2014 ZOSTER VACCINE (1 of 2) 2014 MAMMOGRAM 05/14/2023 05/14/2021 DEPRESSION SCREENING 11/30/2024 COVID-19 VACCINE (1 - 2024-2 6 season) 2025 INFLUENZA VACCINE (#1) 2025 Respiratory Syncytial Virus (RSV) Vaccine Pt: [...] patient's age to complete this topic Insurance ANTHEM ANTHEM Care Teams Brush Machine Setter Relationship Specialty Start Date End Date Zuri Allen DO [address] [place] [address] PCP - General Family Medicine 07/11/25
--- OUTSIDE RECORDS SUMMARY | 2025-10-20 10:01 | XMS_ITS | Encounter Summary ---
Author Organization [facility] Address [address] [place] [address] Care Team Providers Care Costing Manager Name Role Phone Chester Renee DO Primary Care Provider [phone] Encounter Details Date Type Department Care Team (Latest Contact Info) Description 11/28/2004 Outpatient Historical [facility] Laz Churchill MD [address] [facility] [address] [place] [address] SUPRF OTHER HIGH RISK (Primary Dx) Social History Tobacco Use Types Packs/Day Years Used Date Smoking Tobacco: Never Assessed Comments Unknown Sex and Gender Information Value Date Recorded Sex Assigned at Female 12/05/2024 4:56 PM MANAGER ENROLLMENT Legal Sex Female 3:19 AM MANAGER ENROLLMENT Gender Identity Female 12/05/2024 4:56 PM MANAGER ENROLLMENT Sexual Orientation Straight 12/05/2024 4: 56 PM MANAGER ENROLLMENT documented as of this encounter Plan of Treatment Upcoming Encounters Date Type Department Care Team (Late st Contact Info) Description 02/14/2026 9:20 AM CDT Office Visit [facility] - [address] [facility] [address] [facility] [address] [place] [address] [place] [address] [facility] [address] [place] [address] documented as of this encounter Visit Diagnoses Diagnosis Supervision of other high-risk (V23.89)- Primary Supervision of other high-risk documented in this encounter Care Teams Costing Manager Relationship Specialty Start Date End Date Chester Renee DO [address] [facility] [address] [place] [id number] PCP - General Internal Medicine 12/20/20 documented as of this encounter
--- OUTSIDE RECORDS SUMMARY | 2025-10-20 10:01 | XMS_ITS | Encounter Summary ---
Author Organization [facility] Address [address] [place] [address] Care Team Providers Care Plaque Maker Name Role Phone Chester Renee DO Primary Care Provider [phone] Encounter Details Date Type Department Care Team (Latest Contact Info) Description 03/03/2005 Inpatient Historical HIS PATIENT IN A BED Tomi Fox MD [address] [place] [id number] Laz Vargas MD [address] [address] SEVERE PREECLAMP-DELIVER (Primary Dx) Social History Tobacco Use Types Packs/Day Years Used Date Smoking Tobacco: Never Assessed Comments Unknown Sex and Gender Information Value Date Recorded Sex Assigned at Female 12/05/2024 4:56 PM 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 Legal Sex Female 3:19 AM AUTO 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 Gender Identity Female 12/05/2024 4:56 PM AUTO 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 Sexual Orientation Straight 12/05/2024 4: 56 PM AUTO 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 documented as of this encounter Plan of Treatment Upcoming Encounters Date Type Department Care Team (Late st Contact Info) Description 02/14/2026 9:20 AM CDT Office Visit [facility] - [address] [place] [phone] [place] [address] [facility] [address] [place] [address] documented as of this encounter Procedures Procedure [...] fL INTERFACE SYSTEM 03/08/2005 4:45 AM CDT Laz Vargas MD HEMATOLOGY ORDERABLES Fi nal Result Performing Organization Address [facility] Phone Number INTERFACE SYSTEM Refer to [...] for unfractionated heparin 03/08/2005 4:45 AM CDT Laz Vargas MD HEMATOLOGY ORDERABLES [...] for unfractionated heparin 03/07/2005 4:45 AM CDT us Alvino Migel HEMATOLOGY ORDERABLES Final Resu lt Performing Organization Address City/State/[facility] de Phone Number INTERFACE [...] MARTHA SYSTEM 03/07/2005 4:45 AM CDT Alvino Lagoon HEMATOLOGY ORDERABLES Final Resu lt Performing Organization Address [facility] de Phone Number INTERFACE [...] fL INTERFACE SYSTEM 03/07/2005 4:45 AM CDT Alvino Migel HEMATOLOGY ORDERABLES Final Resu lt Performing Organization Address [facility]/ZIP Co de Phone Number INTERFACE SYSTEM Refer to clinic/hospital department * PHOSPHORUS (03/07/2005 4:45 AM CDT) PHOSPHORUS 3.2 2.5 - 4.5 mg/dL INTERFACE SYSTEM 03/07/2005 4:45 [facility]LES Final Resul t Performing Organization Address [facility] Phone Number INTERFACE SYSTEM Refer to clinic/hospital department * MAGNESIUM LEVEL (03/07/2005 4:45 AM CDT) MAGNESIUM 2.4 1.5 - 2.5 mg/dL INTERFACE SYSTEM 03/07/2005 4:45 AM CDT Alvino Migel CHEMISTRY ORDERABLES Final Resul t Performing Organization Address [facility] Phone Number INTERFACE SYSTEM Refer to clinic/hospital [...] read back verified. 03/07/2005 4:45 AM CDT Result [facility] [employer] Migel CHEMISTRY ORDERABLES Final Resul t Performing Organization Address [facility] Phone Number INTERFACE SYSTEM Refer to clinic/hospital department * (ABNORMAL) ALBUMIN LEVEL (03/07/2005 4:45 AM CDT) ALBUMIN 2.3(L) 3.4 - 4.8 g/dL INTERFACE SYSTEM 03/07/2005 4:45 AM CDT Result [facility] Tim Fernandez MD CHEMISTRY ORDERABLES Fi nal Result Performing Organization Address [facility] Phone Number INTERFACE SYSTEM Refer to clinic/hospital department * (ABNORMAL) CALCIUM IONIZED (03/07/2005 4:45 AM CDT) [facility] CALCIUM IONIZED 3.80(L) 4.76 - 5.16 mg/dL INTERFACE SYSTEM 03/07/2005 4:45 AM CDT Tim Fernandez MD CHEMISTRY ORDERABLES Fi nal Result Performing Organization Address [facility] Phone Number INTERFACE SYSTEM Refer to clinic/hospital department * (ABNORMAL) CBC WITH DIFFERENTIAL (03/06/2005 11:49 PM CDT) [facility] NEUTROPHIL ABSOLUTE 6.32 1.90 - 7.00 K/uL [...] ORDERABLES F inal Result Performing Organization Address [facility] de Phone Number INTERFACE SYSTEM Refer to clinic/hospital department * (ABNORMAL) CBC WITH DIFFERENTIAL (03/06/2005 11:49 PM CDT) Pathologist [facility] WBC 8.9 4.0 - 9.8 K/uL INTERFACE [...] ORDERABLES F inal Result Performing Organization Address [facility] Phone Number INTERFACE SYSTEM Refer to clinic/hospital department * (ABNORMAL) MAGNESIUM LEVEL (03/06/2005 11:49 PM CDT) Pathologist [facility] MAGNESIUM 2.7(H) 1.5 - 2.5 mg/dL INTERFACE SYSTEM 03/06/2005 11:4 9 PM CDT Tim Fernandez MD CHEMISTRY ORDERABLES Fi nal Result Performing Organization Address [facility] de Phone Number INTERFACE SYSTEM Refer to clinic/hospital department * (ABNORMAL) BASIC METABOLIC PANEL (03/06/2005 11:49 PM CDT) Pathologist [facility] GLUCOSE 91 65 - 109 mg/dL INTERFACE [...] ORDERABLES Fi nal Result Performing Organization Address [facility] de Phone Number INTERFACE [...] ORDERABLES F inal Result Performing Organization Address [facility] de Phone Number INTERFACE [...] fL INTERFACE SYSTEM 03/06/2005 4:26 PM CDT Tim [...] ORDERABLES F inal Result Performing Organization Address [facility] Phone Number INTERFACE SYSTEM Refer to clinic/hospital department * PHOSPHORUS (03/06/2005 4:26 PM CDT) PHOSPHORUS 3.1 2.5 - 4.5 mg/dL INTERFACE SYSTEM 03/06/2005 4:26 PM CDT Tim Fernandez MD CHEMISTRY ORDERABLES Fi nal Result Performing Organization Address [facility] Phone Number INTERFACE SYSTEM Refer to clinic/hospital department * (ABNORMAL) MAGNESIUM LEVEL (03/06/2005 4:26 PM CDT) MAGNESIUM 3.1(H) 1.5 - 2.5 mg/dL INTERFACE SYSTEM 03/06/2005 4:26 PM CDT Tim Fernandez MD CHEMISTRY ORDERABLES Fi nal Result Performing Organization Address [facility] Phone Number INTERFACE SYSTEM Refer to [...] 22 - 30 mmol/L INTERFACE SYSTEM 03/06/2005 4:26 PM CDT us Tim Fernandez MD CHEMISTRY [...] INTERFACE SYSTEM 03/06/2005 12:3 1 PM CDT Tomi Fox MD HEMATOLOGY ORDERABLES Final Result Performing Organization Address [facility] de Phone Number INTERFACE [...] INTERFACE SYSTEM 03/06/2005 12:3 1 PM CDT Tomi Fox MD HEMATOLOGY ORDERABLES Final Result Performing Organization Address City/[facility]/ZIP Co de Phone Number INTERFACE SYSTEM Refer [...] performed on Serum. Specimen of choice is [place] Heparinized Plasma. Serum TP Ref. Range: 3 [...] performed on Serum. Specimen of choice is [place] Heparinized Plasma. Serum Potassium Reference Range: 5 [...] ORDERABLES Fi nal Result Performing Organization Address City/[facility] de Phone Number INTERFACE [...] ORDERABLES Fi nal Result Performing Organization Address City/[facility] Co de Phone Number INTERFACE SYSTEM [...] including risk stratification. 03/06/2005 8:56 AM CDT Laz Vargas MD HEMATOLOGY ORDERABLES Fi nal Result Performing Organization Address [facility] de Phone Number INTERFACE [...] ORDERABLES Final Re sult Performing Organization Address [facility] Phone Number INTERFACE SYSTEM Refer to [...] SYSTEM Comment:BABY B 03/06/2005 8:09 AM CDT Laz Vargas MD ABG ORDERABLES Final Re sult Performing Organization Address [facility] Phone Number INTERFACE SYSTEM Refer to [...] ORDERABLES Fi nal Result Performing Organization Address [facility] Phone Number INTERFACE SYSTEM Refer to [...] ORDERABLES Fi nal Result Performing Organization Address [facility] Phone Number INTERFACE SYSTEM Refer to [...] ORDERABLES Fi nal Result Performing Organization Address City/[facility] Co de Phone Number INTERFACE SYSTEM Refer to clinic/hospital department * TSH (03/06/2005 5:36 AM CDT) TSH 0.73 0.27 - 4.20 uU/mL INTERFACE SYSTEM 03/06/2005 5:36 AM CDT Laz Vargas MD CHEMISTRY ORDERABLES Fin al Result Performing Organization Address [facility] Phone Number INTERFACE SYSTEM Refer to [...] mg/dL INTERFACE SYSTEM 03/06/2005 5:36 AM CDT Laz Vargas MD CHEMISTRY ORDERABLES Fin al Result Performing Organization Address [facility] Phone Number INTERFACE SYSTEM Refer to clinic/hospital department * (ABNORMAL) CREATININE CLEARANCE (03/05/2005 6:24 AM CDT) CREATININE CLEARANCE 178(H) 75 - 125 mL/min/1.7 sq meter INTERFACE SYSTEM Comment:Creatinine Clearance result is not corrected for body surface area. 03/05/2005 6:24 AM CDT Laz Vagras MD URINE ORDERABLES Final R esult Performing Organization Address [facility] Phone Number INTERFACE SYSTEM Refer to clinic/hospital department * (ABNORMAL) PROTEIN, 24 HR URINE (03/05/2005 6:24 AM CDT) PROTEIN CONCENTRATION <6.0 mg/dL INTERFACE SYSTEM PROTEIN TOTAL, 24 HR URINE <0.22(H) 0.00 - 0.15 g/24 hrs INTERFACE SYSTEM 03/05/2005 6:24 AM CDT Laz Vargas MD URINE ORDERABLES Final R esult Performing Organization Address [facility] Phone Number INTERFACE SYSTEM Refer to clinic/hospital department * CREATININE, 24 HR URINE (03/05/2005 6:24 AM CDT) START DATE 24 HR UR [id number] :[id number] :0:0 INTERFACE SYSTEM START TIME 24 HR UR 0630 time INTERFACE SYSTEM LENGTH OF COLLECTION 24 23 - 25 hr INTERFACE SYSTEM VOLUME, 24 HR URINE 3650 mL INTERFACE SYSTEM CREATININE, 24 HR URINE 1.3 0.6 - 1.8 g/24 hrs INTERFACE SYSTEM 03/05/2005 6:24 AM CDT Laz Vargas MD URINE ORDERABLES Final R esult Performing Organization Address [facility] Phone Number INTERFACE SYSTEM Refer to clinic/hospital department * CREATININE CLEARANCE, SERUM (03/05/2005 6:24 AM CDT) CREATININE 0.5 0.4 - 1.2 mg/dL INTERFACE SYSTEM 03/05/2005 6:24 AM CDT Laz Vargas MD CHEMISTRY ORDERABLES Fin al Result Performing Organization Address [facility] Phone Number INTERFACE SYSTEM Refer to clinic/hospital [...] ORDERABLES Fin al Result Performing Organization Address [facility] Phone Number INTERFACE SYSTEM Refer to clinic/hospital department * (ABNORMAL) LACTATE DEHYDROGENASE (03/05/2005 5:02 AM CDT) LD (LACTATE DEHYDROGENASE) 330(H) 135 - 214 U/L INTERFACE SYSTEM Comment:Slightly hemolyzed. 03/05/2005 5:02 AM CDT Laz Vargas MD CHEMISTRY ORDERABLES Fin al Result Performing Organization Address [facility] Number INTERFACE SYSTEM Refer to clinic/hospital department * (ABNORMAL) ALT (03/05/2005 5:02 AM CDT) ALT 207(H) 0 - 31 U/L INTERFACE SYSTEM Comment:Slightly hemolyzed. 03/05/2005 5:02 AM CDT Laz Vargas MD CHEMISTRY ORDERABLES Fin al Result Performing Organization Address [facility] Number INTERFACE SYSTEM Refer to clinic/hospital department * (ABNORMAL) AST (03/05/2005 5:02 AM CDT) AST 107(H) 12 - 32 U/L INTERFACE SYSTEM Comment:Slightly hemolyzed. 03/05/2005 5:02 AM CDT Laz Vargas MD CHEMISTRY ORDERABLES Fin al Result Performing Organization Address [facility] Phone Number INTERFACE SYSTEM Refer to clinic/hospital [...] INTE RFACE SYSTEM 03/04/2005 3:34 PM CDT Laz Vargas MD HEMATOLOGY ORDERABLES Fi nal Result Performing Organization Address City/[facility] Co de Phone Number INTERFACE SYSTEM [...] ORDERABLES Fi nal Result Performing Organization Address [facility] Phone Number INTERFACE SYSTEM Refer to clinic/hospital department * URIC ACID (03/04/2005 3:34 PM CDT) URIC ACID 5.2 2.3 - 6.6 mg/dL INTERFACE SYSTEM 03/04/2005 3:34 PM CDT Laz Vargas MD CHEMISTRY ORDERABLES Fin al Result Performing Organization Address [facility] Phone Number INTERFACE SYSTEM Refer to clinic/hospital department * (ABNORMAL) AST (03/04/2005 3:34 PM CDT) AST 192(H) 12 - 32 U/L INTERFAC E SYSTEM 03/04/2005 3:34 PM CDT Laz Vargas MD CHEMISTRY ORDERABLES Fin al Result Performing Organization Address [facility] Phone Number INTERFACE SYSTEM Refer to clinic/hospital department * (ABNORMAL) LACTATE DEHYDROGENASE (03/04/2005 3:34 PM CDT) LD (LACTATE DEHYDROGENASE) 326(H) 135 - 214 U/L INTERFACE SYSTEM 03/04/2005 3:34 PM CDT Laz Vargas MD CHEMISTRY ORDERABLES Fin al Result Performing Organization Address [facility] Phone Number INTERFACE SYSTEM Refer to clinic/hospital [...] including risk stratification. 03/04/2005 9:16 AM CDT us Laz Vargas MD HEMATOLOGY [...] ORDERABLES Fi nal Result Performing Organization Address [facility] Phone Number INTERFACE SYSTEM Refer to [...] ORDERABLES Fi nal Result Performing Organization Address [facility] Phone Number INTERFACE SYSTEM Refer to clinic/hospital department * URIC ACID (03/04/2005 8:54 AM CDT) URIC ACID 4.9 2.3 - 6.6 mg/dL INTERFACE SYSTEM 03/04/2005 8:54 AM CDT us Laz Vargas MD CHEMISTRY ORDERABLES Fin al Result Performing Organization Address [facility] Phone Number INTERFACE SYSTEM Refer to clinic/hospital department * (ABNORMAL) ALKALINE PHOSPHATASE (03/04/2005 8:54 AM CDT) ALKALINE PHOSPHATASE 136(H) 35 - 104 U/L INTERFACE SYSTEM 03/04/2005 8:54 AM CDT us Laz Vargas MD CHEMISTRY ORDERABLES Fin al Result Performing Organization Address City/[facility] Phone Number INTERFACE SYSTEM Refer to clinic/hospital department * (ABNORMAL) LACTATE DEHYDROGENASE (03/04/2005 8:54 AM CDT) LD (LACTATE DEHYDROGENASE) 314(H) 135 - 214 U/L INTERFACE SYSTEM 03/04/2005 8:54 AM CDT us Laz Vargas MD CHEMISTRY ORDERABLES Fin al Result Performing Organization Address [facility] Phone Number INTERFACE SYSTEM Refer to clinic/hospital department * (ABNORMAL) ALT (03/04/2005 8:54 AM CDT) ALT 284(H) 0 - 31 U/L INTERFACE SYSTEM 03/04/2005 8:54 AM CDT us Laz Vargas MD CHEMISTRY ORDERABLES Fin al Result Performing Organization Address [facility] Phone Number INTERFACE SYSTEM Refer to clinic/hospital department * (ABNORMAL) AST (03/04/2005 8:54 AM CDT) AST 235(H) 12 - 32 U/L INTERFAC E SYSTEM 03/04/2005 8:54 AM CDT us Laz Vargas MD CHEMISTRY ORDERABLES Fin al Result Performing Organization Address [facility] Phone Number INTERFACE SYSTEM Refer to [...] ORDERABLES Fi nal Result Performing Organization Address [facility] Phone Number INTERFACE SYSTEM Refer to [...] ORDERABLES Fi nal Result Performing Organization Address [facility] Phone Number INTERFACE SYSTEM Refer to clinic/hospital department * (ABNORMAL) ALKALINE PHOSPHATASE (03/04/2005 6:03 AM CDT) ALKALINE PHOSPHATASE 132(H) 35 - 104 U/L INTERFACE SYSTEM 03/04/2005 6:03 AM CDT us Laz Vargas MD CHEMISTRY ORDERABLES Fin al Result Performing Organization Address [facility] Phone Number INTERFACE SYSTEM Refer to clinic/hospital department * URIC ACID (03/04/2005 6:03 AM CDT) URIC ACID 4.7 2.3 - 6.6 mg/dL INTERFACE SYSTEM 03/04/2005 6:03 AM CDT us Laz Vargas MD CHEMISTRY ORDERABLES Fin al Result Performing Organization Address [facility] Phone Number INTERFACE SYSTEM Refer to clinic/hospital department * (ABNORMAL) LACTATE DEHYDROGENASE (03/04/2005 6:03 AM CDT) LD (LACTATE DEHYDROGENASE) 324(H) 135 - 214 U/L INTERFACE SYSTEM 03/04/2005 6:03 AM CDT us Laz Vargas MD CHEMISTRY ORDERABLES Fin al Result Performing Organization Address [facility] Phone Number INTERFACE SYSTEM Refer to clinic/hospital department * (ABNORMAL) ALT (03/04/2005 6:03 AM CDT) ALT 281(H) 0 - 31 U/L INTERFACE SYSTEM 03/04/2005 6:03 AM CDT us Laz Vargas MD CHEMISTRY ORDERABLES Fin al Result Performing Organization Address [facility] Phone Number INTERFACE SYSTEM Refer to clinic/hospital department * (ABNORMAL) AST (03/04/2005 6:03 AM CDT) AST 236(H) 12 - 32 U/L INTERFAC E SYSTEM 03/04/2005 6:03 AM CDT us Laz Vargas MD CHEMISTRY ORDERABLES Fin al Result Performing Organization Address [facility] Phone Number INTERFACE SYSTEM Refer to [...] 22 - 30 mmol/L INTERFACE SYSTEM 03/04/2005 1:2 1 AM CDT us Laz Vargas MD CHEMISTRY ORDERABLES Fin al Result Performing Organization Address [facility] Phone Number INTERFACE SYSTEM Refer to clinic/hospital department * (ABNORMAL) LACTATE DEHYDROGENASE (03/04/2005 1:20 AM CDT) LD (LACTATE DEHYDROGENASE) 322(H) 135 - 214 U/L INTERFACE SYSTEM 03/04/2005 1:20 AM CDT us Laz Vargas MD CHEMISTRY ORDERABLES Fin al Result Performing Organization Address [facility] Phone Number INTERFACE SYSTEM Refer to clinic/hospital department * URIC ACID (03/04/2005 1:20 AM CDT) URIC ACID 4.7 2.3 - 6.6 mg/dL INTERFACE SYSTEM 03/04/2005 1:20 AM CDT us Laz Vargas MD CHEMISTRY ORDERABLES Fin al Result Performing Organization Address [facility]/ZIP Co de Phone Number INTERFACE SYSTEM Refer to clinic/hospital department * (ABNORMAL) AST (03/04/2005 1:20 AM CDT) AST 221(H) 12 - 32 U/L INTERFAC E SYSTEM 03/04/2005 1:20 AM CDT Laz Vargas MD CHEMISTRY ORDERABLES Fin al Result Performing Organization Address [facility] Phone Number INTERFACE SYSTEM Refer to [...] ORDERABLES Fi nal Result Performing Organization Address [facility] Phone Number INTERFACE SYSTEM Refer to [...] ORDERABLES Fi nal Result Performing Organization Address [facility] de Phone Number INTERFACE [...] ORDERABLES Final R esult Performing Organization Address [facility] de Phone Number INTERFACE SYSTEM Refer to clinic/hospital department documented in this encounter Visit Diagnoses Diagnosis Severe pre-eclampsia, with delivery- Primary documented in this encounter Care Teams Plaque Maker Relationship Specialty Start Date End Date Chester Renee DO [address] [facility] [address] [place] [address] PCP - General Internal Medicine 12/20/20 documented as of this encounter
--- OUTSIDE RECORDS SUMMARY | 2025-10-20 10:01 | XMS_ITS | Encounter Summary ---
Author Organization [facility] Address 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 Legal Sex Female 3:19 AM INTERNET 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 Gender Identity Female 12/05/2024 4:56 PM INTERNET 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 Sexual Orientation Straight 12/05/2024 4: 56 PM INTERNET 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 documented as of this encounter Plan of Treatment Upcoming Encounters Date Type Department Care Team (Late st Contact Info) Description 02/14/2026 9:20 AM CDT Office Visit [facility] - [address] [facility] [address] [facility] [address] [place] [address] [place] [address] [facility] [address] [place] [address] documented as of this encounter Visit Diagnoses Diagnosis Supervision of other high-risk (V23.89)- Primary Supervision of other high-risk documented in this encounter Care Teams Eye Clinic Manager Relationship Specialty Start Date End Date Chester Renee DO [address] [facility] [address] [place] [id number] PCP - General Internal Medicine 12/20/20 documented as of this encounter
--- OUTSIDE RECORDS SUMMARY | 2025-10-20 10:01 | XMS_ITS | Clinical Summary ---
Author Organization [facility] [address] [facility] Address [address] [place] [address] Care Team Providers Care Tie Buyer Name Role Phone Chester Renee Primary Care Provider [phone] Allergies No known active allergies Medications vortioxetine [...] Active Additional Information Patient not taking.Reported on 07/26/2025 dextromethorpha n-bupropion (Auvelity) 45-105 mg tablet, IR [...] Encounters Date Type Department Care Team Description 10/17/2025 External Device Data [facility]STRACTION Provider, Abstract 09/27/2025 External Device Data [facility] Provider, Abstract 09/27/2025 External Device Data [facility] Provider, Abstract 08/14/2025 Results Follow-Up [address] [address] Sarah Cool, DO MRI PELVIS W WO CONTRAST 08/11/2025 9:39 AM CDT - 08/11/2025 11:59 PM CDT Hospital Encounter [address] [facility] [address] [place] [address] Sarah Cool, DO Discharge Disposition: Home or Self Care 08/04/[address] [address] Provider, Abstract 07/28/[address] [address] Sarah Cool, Needs Orders Written 07/26/2025 2:20 PM CDT Office Visit [address] [address] Sarah Cool DO LLQ abdominal pain (Primary Dx); Abnormal ultrasound of pelvis 07/26/2025 1:30 PM CDT Ancillary Procedure [facility] - [address] [place] [address] Pelvic pain in female from Last 3 Months Family History Medical History Relation Name Comments Diabetes Father Heart Disease Father Hypertension Father Thyroid Disease Mother Relation Name Status Comments Father Mother Social History Tobacco Use Types Packs/Day Years Used Date Smoking Tobacco: Former Comments Unknown Sex and Gender Information Value Date Recorded Sex Assigned at Female 12/05/2024 4:56 PM [employer] Legal Sex Female 3:19 AM [employer] Gender Identity Female 12/05/2024 4:56 PM [employer] Sexual Orientation Straight 12/05/2024 4: 56 PM [employer] Last Filed Vital Signs Vital Sign Reading Time Taken Comments Blood Pressure 120/74 07/26/2025 2:17 PM CDT Pulse - - Temperature 36.5 C (97.7 F) 12/24/2021 9:14 AM E[employer]QU[employer]MENT Respiratory Rate - - Oxygen Saturation - - Inhaled Oxygen Concentration - - Weight 98.2 kg (216 lb 6.4 oz) 07/26/2025 2:17 P M CDT Height 165.1 cm (5' 5) 02/08/2025 9:16 AM CDT Body Mass Index 36.01 02/08/2025 9:16 AM CDT Plan of Treatment Upcoming Encounters Date Type Department Care Team (Late st Contact Info) Description 02/14/2026 9:20 AM CDT Office Visit [facility] - [address] [place] [id number] Sarah Cool, [address] [facility] [address] [place] [address] Health Maintenance Due Date Last Done Comments Pre-Diabetes and Diabetes Screening 1965 FIT-DNA Q 3 years 2009 FIT/FOBT Q 1 year 2009 Flex Sig/CT Colonography Q 5 years 2009 ZOSTER VACCINE (1 of 2) 2014 INFLUENZA VACCINE (#1) 2025 3, 12/10/2021, 08/31/2018 COVID-19 Vaccine (5 - 2025-2 6 season) 2025 11/28/2023, 12/10/2021, 03/04/2021, Additional history exists BREAST CANCER SCREENING 12/22/2025 12/22/2024, 05/14 DTAP/TDAP/TD VACCINES (3 - T d or Tdap) 07/12/2027 07/12/2017, 11/30/2016 COLORECTAL SCREENING 11/07/2034 11/07/2024, 10/20/20 18 Colorectal Cancer Screening 11/07/2034 RSV VACCINE (60+ or ) (1 - 1-dose 75+ series) 2039 Procedures Procedure Name Priority Date/Time Associated Diagnosis Comments MRI PELVIS W WO CONTRAST Routine 08/11/2025 10:44 AM CDT LLQ abdominal pain Abnormal ultrasound of pelvis Pelvic pain in female US PELVIC TRANSVAGINAL Routine 07/26/2025 2:12 PM CDT Pelvic pain in female MAMMO SCREEN BILAT W OR WO CAD Routine 12/22/2024 12:37 PM 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 Overall, there is no suspicious mass in the pelvis.. DICTATION LOCATION: Location 1 - [facility] 08/11/2025 12:39 PM CDT EXAMINATION: MRI OF THE PELVIS WITHOUT AND WITH IV CONTRAST DATE: 08/11/2025 10:44 AM HISTORY: 59-year-old with pelvic pain. History of hysterectomy and left oophorectomy. COMPARISON: No prior pelvic MRI. PROCEDURE: MR of the pelvis was performed prior to and after the uneventful administration of 19 mL ProHance gadolinium contrast according to the female pelvis protocol. FINDINGS: Pelvic cavity: Surgical changes of hysterectomy. The left ovary is not visualized in keeping with history of left nephrectomy. The right ovary is also not definitively visualized, however there is no suspicious adnexal mass. There are few tiny subcentimeter foci susceptibility artifact as well as tiny foci of T1 hyperintensity in the vaginal cuff (series 1300, images 55-63). On postcontrast images, these demonstrate no enhancement and likely represent benign calcifications or clips. Overall, there is no suspicious enhancement or diffusion restriction. No fluid collection. No suspicious mass. Bladder: Within normal limits. Bowel: Within normal limits.. Lymph nodes: No pelvic lymphadenopathy.. Other findings: No pelvic ascites. No suspicious osseous lesion.. Procedure Note Trung Giraldo MD - 08/11/2025 EXAMINATION: MRI OF THE PELVIS WITHOUT AND WITH IV CONTRAST DATE: 08/11/2025 10:44 AM HISTORY: 59-year-old with pelvic pain. History of hysterectomy and left oophorectomy. COMPARISON: No prior pelvic MRI. PROCEDURE: MR of the pelvis was performed prior to and after the uneventful administration of 19 mL ProHance gadolinium contrast according to the female pelvis protocol. FINDINGS: Pelvic cavity: Surgical changes of hysterectomy. The left ovary is not visualized in keeping with history of left nephrectomy. The right ovary is also not definitively visualized, however there is no suspicious adnexal mass. There are few tiny subcentimeter foci susceptibility artifact as well as tiny foci of T1 hyperintensity in the vaginal cuff (series 1300, images 55-63). On postcontrast images, these demonstrate no enhancement and likely represent benign calcifications or clips. Overall, there is no suspicious enhancement or diffusion restriction. No fluid collection. No suspicious mass. Bladder: Within normal limits. Bowel: Within normal limits.. Lymph nodes: No pelvic lymphadenopathy.. Other findings: No pelvic ascites. No suspicious osseous lesion.. IMPRESSION: Few subcentimeter foci of susceptibility artifact and inaja T1 hyperintensity in the vaginal cuff that demonstrate no suspicious enhancement or diffusion restriction and likely represent calcifications within or along the vaginal cuff as well as possible surgical clips. Overall, there is no suspicious mass in the pelvis.. DICTATION LOCATION: Location - [facility] us Sarah J Cool DO MR ORDERABLES Final Resul t * US PELVIC TRANSVAGINAL (07/26/2025 2:12 PM CDT) Anatomical Region Laterality Modality Pelvis Ultrasound 07/26/2025 1:45 PM CDT Narrative 07/28/2025 8:33 AM CDT [facility] PELVIC ULTRASOUND ----- Pat. Name: MOJGAN STREETER Study Date: 07/26/2025 1:45pm Pat. NO: [id number] Referring MD: SARAH COOL DO Site: [place] [address] Machine Trimmer: Chica Pacheco RDMS : 1965 Age: 59 ----- INDICATION ----- Pelvic Pain History of Hysterectomy History of unilateral oophorectomy left CODING ----- Diagnoses Z90.721: History of unilateral oophorectomy Z90.711: Acquired absence of uterus with remaining cervical stump R10.2: Pelvic cramping Procedures 53010: Ultrasound non OB transvaginal METHOD ----- INTEGRATED PROGRAM TEACHER Transvaginal US Examination UTERUS ----- hysterectomy noted RIGHT OVARY ----- visualized. Size 14 mm x 5 mm x 8 mm. Vol 0.3 cm LEFT OVARY ----- surgically absent IMPRESSION ----- Uterus is surgically absent. The vaginal cuff has multiple hyperechoic masses ranging in size from 3-12 mm. These areas are non vascular. Right Ovary is visualized. The views are suboptimal but no concerning findings are noted. Left Ovary is surgically absent. No free fluid is noted. Prominent bowel is noted. Procedure Note Sarah Cool DO - 07/28/2025 [facility] PELVIC ULTRASOUND ----- Pat. Name:Lopez STREETER Date:07/26/2025 1:45pm Pat. NO: [id number] MD:SARAH COOL DO Site:[place] [address]Sonographer:Chica Pacheco RDMS :1965Age:59 ----- INDICATION ----- Pelvic Pain History of Hysterectomy History of unilateral oophorectomy left CODING ----- Diagnoses Z90.721: History of unilateral oophorectomy Z90.711: Acquired absence of uterus with remainingcervical stump R10.2: Pelvic cramping Procedures 62084: Ultrasound non OB transvaginal METHOD ----- INTEGRATED PROGRAM TEACHER Transvaginal US Examination UTERUS ----- hysterectomy noted RIGHT OVARY ----- visualized. Size 14 mm x 5 mm x 8 mm. Vol 0.3 cm LEFT OVARY ----- surgically absent IMPRESSION ----- Uterus is surgically absent. The vaginal cuff has multiple hyperechoic masses ranging in size from 3-12mm. These areas are non vascular. Right Ovary is visualized. The views are suboptimal but no concerningfindings are noted. Left Ovary is surgically absent. No free fluid is noted. Prominent bowel is noted. us Sarah Cool DO US ORDERABLES Final Resul t * MAMMO SCREEN BILAT W OR WO CAD (12/22/2024 12:37 PM ELECTRICIAN CONTR[employer] EQUIPMENT) Anatomical Region Laterality Modality Breast Bilateral Mammography us Abstract Provider MAMMO ORDERABLES Edited Result - Final from Last 3 Months or Most Recently Relevant to Health Maintenance Insurance BCBS OUT OF STATE Care Teams Tie Buyer Relationship Specialty Start Date End Date Chester Renee DO [address] [facility] [address] [place] [address] PCP - General Internal Medicine 12/20/20
--- OUTSIDE RECORDS SUMMARY | 2025-10-20 10:01 | XMS_ITS | Patient Health Record ---
Author Organization [facility] Address [address] [place] [address] Care Team Providers Care Scrubber Operator Name Role Phone Zuri Allen DO Primary Care Provider Unavailab Presley Shea Unavailable [phone] Dewayne Caicedo Unavailable [phone] Allergies No Known Allergies Reason For Referral No Information Medications Medication SIG (Take, Route, Frequency, Duration) Notes Start Date End Date Status Propranolol HCl 20 MG Tablet Oral 02/08/2024 Active Atorvastatin Calcium 20 MG Tablet Oral 02/08/2024 Active Vagifem 10 mcg Tablet Vaginal 02/08/2024 Active LORazepam 1 MG Tablet 1 tablet Oral Once a day; Duration: 30 days As needed dose increase 10/19/2025 Active Nystatin-Triamcinolo ne 025080-1.1 UNIT/GM Cream External 02/08/2024 Active rOPINIRole HCl 1 MG Tablet Oral; Duration: 90 Days Active Belsomra 20 MG Tablet TAKE 1 TABLET AT BEDTIME Orally Once a day; Duration: 90 days 10/19/2025 04/17/2026 Active Minoxidil 2.5 MG Tablet Oral; Duration: 90 Days Active lamoTRIgine 25 MG Tablet 3 tablets Oral TWICE A DAY; Duration: 90 days 10/19/2025 Active Clobetasol Propionate 0.05 % Cream External; Duration: 30 Days Active Auvelity 45-105 MG Tablet Extended Release 1 tablet Oral twice a day; Duration: 90 days *Reorder from [employer] for eRx and Interaction Alerts* 10/19/2025 Active Auvelity 45-105 MG Tablet Extended Release TAKE 1 TABLET TWICE A DAY; Duration: 30 Active Vraylar 1.5 MG Capsule 1 capsule Orally Once a day; Duration: 90 days 10/19/2025 Active lamoTRIgine 25 MG Tablet 3 tablets Oral TWICE A DAY; Duration: 90 days Active Probiotic *Pick strength-form from [employer] for eRX* 02/08/2024 Active ESTRADIOL 0.5 MG/0.5 GRAM (0.1 %) TRANSDERMAL GEL PACKET *Reorder from [employer] for eRx and Interaction Alerts* 02/08/2024 Active Immunizations Vaccine Route Administration Date [...] History Observation Description Sex Assigned At Female Social History Tobacco Use: Social Info Question Answer Notes Tobacco Control (Standard) Tobacco use: Current smoker Additional Details Category Social Info Options Details Migrated Social History Migrated Social History Alcohol Intake: Occasional 10/02/2020,Tobacco Years: Current every day smoker 05/30/2021,Smoking Status: 25 11/09/2023 Problems Problem Type SNOMED Code ICD Code Onset Dates Problem Status W/U Status Risk Notes Problem Mild recurrent major depression (53628838) Major depressive disorder, recurrent, mild (F33.0) Active confirmed Problem Generalized anxiety disorder (47820155) Generalized anxiety disorder (F41.1) Active confirmed Problem Restless legs syndrome (18449098) Restless legs syndrome (G25.81) Active confirmed Problem Insomnia (967148909) Other insomnia (G47.09) Active confirmed Vital Signs Heart Rate 71 /min 10/19/2025 Height-cm 165.1 cm 10/19/2025 Blood pressure diastolic 81 mm Hg 10/19/2025 Weight-kg 98.07 kg 10/19/2025 Height 65.00 in 10/19/2025 Blood pressure systolic 131 mm Hg 10/19/2025 Weight 216.2 lbs 10/19/2025 BMI 35.97 kg/m2 10/19/2025 Encounters Encounter Location Date Provider Diagnosis [facility], [facility] [address] [place] [address] 12/16/2024 Presley Han Generalized anxiety disorder F41.1 ; Other insomnia G47.09 ; Restless legs syndrome G25.81 and Major depressive disorder, recurrent, mild F33.0 [facility], [facility] [address] [place] [address] 06/29/2025 Presley Han Generalized anxiety disorder F41.1 ; Other insomnia G47.09 ; Restless legs syndrome G25.81 and Major depressive disorder, recurrent, mild F33.0 [facility], [facility] [address] [place] [address] 10/19/2025 Presley Han Generalized anxiety disorder F41.1 ; Other insomnia G47.09 ; Restless legs syndrome G25.81 and Major depressive disorder, recurrent, mild F33.0 [facility], [facility] [address] [place] [address] 01/24/2025 Presley Han [facility], [facility] [address] [place] [address] 05/15/2025 Presley Pandaoza [facility], [facility] [address] [place] [address] 05/26/2025 Presley Han Major depressive disorder, recurrent, mild F33.0 [facility], [facility] [address] [place] [address] 09/20/2025 Presley Han Major depressive disorder, recurrent, mild F33.0 [facility], [facility] [address] [place] [address] 10/26/2024 Dewayne Caicedo Generalized anxiety disorder F41.1 [facility], [facility] [address] [place] [address] 02/19/2025 Presley Brighta Major depressive disorder, recurrent, mild F33.0 [facility], [facility] [address] [place] [address] 02/22/2025 Presley Han Major depressive disorder, recurrent, mild F33.0 [facility] [address] [place] [address] 02/22/2025 Presley Han [facility] [address] [place] [address] 06/06/2025 Presley Han Other insomnia G47.0 9 [facility] [address] [place] [address] 06/06/2025 Presley Han [facility] [address] [place] [address] 06/07/2025 Presley Han [facility] [address] [place] [address] 06/11/2025 Presley Han Major depressive disorder, recurrent, mild F33.0 [facility] [address] [place] [address] 08/09/2025 Presley Han Generalized anxiety disorder F41.1 Assessments Encounter Date Diagnosis (ICD Code) Assessment Notes Treatment Notes Treatment Clinical Notes Section Notes 10/26/2024 Generalized anxiety disorder (ICD-10 - F41.1) 02/19/2025 Major depressive disorder, recurrent, mild (ICD-10 - F33.0) 02/22/2025 Major depressive disorder, recurrent, mild (ICD-10 - F33.0) 05/26/2025 Major depressive disorder, recurrent, mild (ICD-10 - F33.0) 06/06/2025 Other insomnia (ICD-10 - G47.09) 06/11/2025 Major depressive disorder, recurrent, mild (ICD-10 - F33.0) 06/29/2025 Generalized anxiety disorder (ICD-10 - F41.1) cont lorazepam 0.5mg daily prn 08/09/2025 Generalized anxiety disorder (ICD-10 - F41.1) 10/19/2025 Generalized anxiety disorder (ICD-10 - F41.1) cont lorazepam 0.5mg daily prn 12/16/2024 Generalized anxiety disorder (ICD-10 - F41.1) cont lorazepam 0.5mg daily prn 12/16/2024 Other insomnia (ICD-10 - G47.09) uses cpap, cont belsomra 20mg at hs 10/19/2025 Other insomnia (ICD-10 - G47.09) uses cpap, cont belsomra 20mg at hs 09/20/2025 Major depressive disorder, recurrent, mild (ICD-10 - F33.0) Electronic Prior Authorization was requested for Auvelity 45-105 MG Tablet Extended Release. Provider can order medication once approval received. 06/29/2025 Other insomnia (ICD-10 - G47.09) uses cpap, cont belsomra 20mg at hs 06/29/2025 Restless legs syndrome (ICD-10 - G25.81) Ropinirole- prescribed by PCP 10/19/2025 Restless legs syndrome (ICD-10 - G25.81) Ropinirole- prescribed by PCP 12/16/2024 Restless legs syndrome (ICD-10 - G25.81) Ropinirole- prescribed by PCP 12/16/2024 Major depressive disorder, recurrent, mild (ICD-10 - F33.0) lamotrigine 75mg bid, auvelity 45mg-105mg bid 10/19/2025 Major depressive disorder, recurrent, mild (ICD-10 - F33.0) lamotrigine 75mg bid, auvelity 45mg-105mg bid 06/29/2025 Major depressive disorder, recurrent, mild (ICD-10 - F33.0) lamotrigine 75mg bid, auvelity 45mg-105mg bid 12/16/2024 Other 1. Insomnia: - Patient reports running out of Belsomra and having difficulty reordering it through [facility]. She believes it was helping her sleep. Plan: - Send a new prescription for Belsomra to [facility] to facilitate the refill process. 2. Obstructive Sleep Apnea: - Patient reports improvement in sleep quality with a new CPAP mask provided by her turbine engine assembler. Plan: - Encourage the patient to continue using the new CPAP mask and follow up with her turbine engine assembler as needed. 3. Mood stability: - Patient reports overall stable mood on her current medications (Auvi-Q, Lamotrigine). Plan: - Continue with the current medication regimen and monitor for any changes in mood. 4. Anxiety: - Patient requests a refill of Lorazepam for occasional use during high-stress days. Plan: - Send a prescription for Lorazepam (30 tablets) to the local [facility] pharmacy. 5. Pharmacy preferences: - Patient expresses dissatisfaction with [facility] and is considering transferring her prescriptions to [facility]. Plan: - Discuss the patient's pharmacy preferences during the next visit and assist with transferring prescriptions if needed. 6. Follow-up: - Schedule a follow-up appointment in four months to reassess the patient's progress and medication regimen. 06/29/2025 Other Mojgan Streeter presents with a history of depression and anxiety, reporting improvement with Auvelity but experiencing symptom recurrence during medication rationing on vacation. Major Depressive Disorder Assessment: Patient reports significant improvement in depressive symptoms with Auvelity (bupropion + dextromethorphan) . During a period of medication rationing on vacation, she experienced symptom recurrence including crying spells and brain zaps. The patient has recently engaged in weekly therapy sessions using [facility] (IF[facility]) approach, which she finds beneficial. Overall, the patient states her depression is much better than normal with the current treatment regimen. Plan: - Continue Auvelity - Refill Auvelity prescription - Continue weekly therapy sessions with aVl Griffiths at [facility] Anxiety Disorder Assessment: Patient reports slightly higher anxiety levels despite improvement in depressive symptoms. She occasionally uses lorazepam for management. Plan: - Continue lorazepam as needed - Refill lorazepam prescription - Send prescription to [facility] in [place] on [place] [place] Sleep Disorder Assessment: Patient reports a history of restless legs syndrome and use of CPAP for sleep apnea. She has recently consulted a sleep specialist and received a new CPAP device that attaches to the top of the head, which has resulted in less frequent sleep disturbance episodes, though some persist. Plan: - Continue use of new CPAP device - Monitor sleep quality and CPAP effectiveness Medication Management Assessment: Patient requires medication refills for ongoing management of psychiatric conditions. Current regimen includes Auvelity, lorazepam, lamotrigine, and raspin (likely rasagiline). Plan: - Refill raspin (rasagiline) - Refill lamotrigine for 4 months - Continue current dosage of lamotrigine: 3 tablets twice daily - Refill Belsomra the note is transcribed using speech recognition software. It is a reflection of a visit with the patient. It might have some inaccuracy, including medication names and transcribing errors, though efforts have been made to correct them. 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 Plan Of Treatment Next Appt Details Provider Name:Presley gambino, 11/16/2025 01:15:00 PM, [address], [facility] [address], [place], [address], Insurance Providers Payer Name Payer Address Payer Phone Subscriber Number Group Number Insured Name Patient Relationship to Insured Coverage Start Date Coverage End Date [facility] [address] [place] [address] [id number] SEEMA GUTIÉRREZ Spouse - patient is the spouse of the insured Medical (General) History Medical History History ICD Code Problems: Generalized anxiety disorder Mild recurrent major depression Persistent insomnia Recurrent major depression in remission Restless legs Severe recurrent major depression withou t psychotic features , Imported from Highlights: On 07/20/2024, external device data was recorded at [facility]. This was followed by similar data entries [...] with Sarah Abarca DO, occurred on 06/20/2025. Surgical History Surgery Date(Month/Year) Hysterectomy/revise vagina (21067) Hysterectomy (67371) 03/06/2005 Other 10/26/2002
--- OUTSIDE RECORDS SUMMARY | 2025-10-20 10:01 | XMS_ITS | Encounter Summary ---
Author Organization [facility] Address [address] [place] [address] Care Team Providers Care Slip Sheeter Name Role Phone Chester Renee DO Primary Care Provider [phone] Encounter Details Date Type Department Care Team (Late st Contact Info) Description 03/04/2005 Outpatient Historical [facility] Maternal and Ground Floor S Formerly [facility], [facility] [address] [place] [address] Laz Vargas MD [address] [address] Social History Tobacco Use Types Packs/Day Years Used Date Smoking Tobacco: Never Assessed Comments Unknown Sex and Gender Information Value Date Recorded Sex Assigned at Female 12/05/2024 4:56 PM [employer]NS 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 Legal Sex Female 3:19 AM TEXT[employer] DESIGNS SALES 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 Gender Identity Female 12/05/2024 4:56 PM [employer] DES[employer] SALES 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 Sexual Orientation Straight 12/05/2024 4: 56 PM [employer] DES[employer] SALES 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 documented as of this encounter Plan of Treatment Upcoming Encounters Date Type Department Care Team (Late st Contact Info) Description 02/14/2026 9:20 AM CDT Office Visit [facility] [id number] [facility] [address] [facility] [address] [place] [address] [place] [address] [facility] [address] [place] [address] documented as of this encounter Visit Diagnoses Not on filedocumented in this encounter Care Teams Slip Sheeter Relationship Specialty Start Date End Date Chester Renee DO [address] [facility] [address] [place] [id number] PCP - General Internal Medicine 12/20/20 documented as of this encounter
== END 2025-10-20 09:55 | disposition home or self-care (01) ==
PROVIDERS: PCP Family Medicine; Visit Provider Physician Assistant
DX: Z12.2 Encounter for screening for malignant neoplasm of respiratory organs (principal); Z87.891 Personal history of nicotine dependence
CPT/HCPCS: 71271